=== PATIENT | female | born 1940 | race Caucasian/White ===

== ENCOUNTER 2016-09-25 06:56 | Day surgery (SDC) | payer OTHER ==
[~2016-09-25] VITALS: Ht 162.6 cm; Wt 90.7 kg
[~2016-09-25 06:56] MED LIST: CLARITIN10 MG PO; COUMADIN4 MG PO; EFFEXOR XR75 MG PO
[2016-09-25] MEDS ORDERED: fentaNYL 0.05 MG/ML VIAL ONE (08:47)
[2016-09-25] MEDS ORDERED: LIDOCAINE VISCOUS 2% 20 ML UDC ONE (08:47)
[2016-09-25] MEDS ORDERED: MIDAZOLAM 2 MG/2 ML VIAL ONE (08:48)
[2016-09-25] MEDS ORDERED: HCTZ (09:44)
[2016-09-25] MEDS ORDERED: SYNTHROID0.025 MG PO (09:44)
[2016-09-25] MEDS ORDERED: CHOLESTEROL (09:44)
[2016-09-25] MEDS ORDERED: BP MED (09:44)
[2016-09-25] MEDS ORDERED: INSULIN (09:44)
[2017-03-27] MEDS ORDERED: ASPIRIN81 M1 PO (17:51)
== END 2016-09-25 10:25 | disposition home or self-care (01) ==
LOC: MDS 06:56 → MMU 07:06 → MDS 10:25
PROVIDERS: ATTEND Internal Medicine Gastroenterology
DX: E11.43 Type 2 diabetes mellitus with diabetic autonomic (poly)neuropathy (principal); K31.84 Gastroparesis; E11.22 Type 2 diabetes mellitus with diabetic chronic kidney disease; I12.9 Hypertensive chronic kidney disease with stage 1 through stage 4 chronic kidney disease, or unspecified chronic kidney disease; N18.4 Chronic kidney disease, stage 4 (severe); M19.90 Unspecified osteoarthritis, unspecified site
CPT/HCPCS: 43235; 71010; 82948; J2250; J7030; Q0092

== ENCOUNTER 2016-10-19 13:11 | Outpatient (CLI) | payer OTHER ==
[~2016-10-19 13:11] MED LIST changes: +BP MED; +CHOLESTEROL; +HCTZ; +INSULIN; +SYNTHROID0.025 MG PO
[2017-03-27] MEDS ORDERED: ASPIRIN81 M1 PO (17:51)
== END 2016-10-19 20:02 | disposition home or self-care (01) ==
LOC: MLB 13:11
DX: M19.90 Unspecified osteoarthritis, unspecified site (principal); E11.9 Type 2 diabetes mellitus without complications; I12.9 Hypertensive chronic kidney disease with stage 1 through stage 4 chronic kidney disease, or unspecified chronic kidney disease; N18.2 Chronic kidney disease, stage 2 (mild)

== ENCOUNTER 2016-11-19 15:16 | Emergency (ER) | payer OTHER ==
[~2016-11-19] VITALS: Ht 158.8 cm; Wt 90.9 kg
[~2016-11-19 15:16] MED LIST changes: -CLARITIN10 MG PO; -COUMADIN4 MG PO; -EFFEXOR XR75 MG PO; -HCTZ; +LORA10TA19 PO; +ORE25; +SYN.025 PO; -SYNTHROID0.025 MG PO; +VENL75CE5 PO; +WARF4TAB PO
[2016-11-19 15:19] VITALS: BP 147/71
--- NOTE | 2016-11-19 15:34 | NUR ---
Patient to bed 07.
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
--- NOTE | 2016-11-19 15:38 | NUR ---
Dr. Guevara evaluating patient at bedside.
[2016-11-19] MEDS ORDERED: HYDROcodone/APAP 5/325 MG 1 TAB TAB PO ONE (15:40)
--- NOTE | 2016-11-19 15:46 | NUR ---
Patient going to CT via [facility].
--- NOTE | 2016-11-19 16:08 | NUR ---
Patient back from CT via [facility].
--- NOTE | 2016-11-19 16:09 | NUR ---
LAB at bedside.
[2016-11-19 16:24] LABS: BASOPHILS # (AUTO) 0.1 K/uL (0.00-0.22); BASOPHILS % (AUTO) 1.2 % (0.0-2.0); EOSINOPHILS # (AUTO) 0.2 K/uL (0-0.4); EOSINOPHILS % (AUTO) 2.3 % (0.0-4.0); HEMATOCRIT 40.3 % (36-48); HEMOGLOBIN 13.2 g/dL (12.0-16.0); LYMPHOCYTES # (AUTO) 2.1 K/uL (2.5-16.5); LYMPHOCYTES % (AUTO) 29.2 % (20.5-51.1); MEAN CORPUSCULAR HEMOGLOBIN 29 pg (27-31); MEAN CORPUSCULAR HGB CONC 33 g/dL (33-37); MEAN CORPUSCULAR VOLUME 89 fL (80-94); MONOCYTES # (AUTO) 0.6 K/uL (0.8-1.0); MONOCYTES % (AUTO) 8.1 % (1.7-9.3); NEUTROPHILS # (AUTO) 4.2 K/uL (1.8-7.7); NEUTROPHILS % (AUTO) 59.2 % (42.2-75.2); PLATELET COUNT (AUTO) 198 K/uL (140-450); RED BLOOD CELL COUNT(AUTO) 4.53 MIL/uL (4.20-5.40); WHITE BLOOD COUNT (AUTO) 7.2 K/uL (4.8-10.8)
--- NOTE | 2016-11-19 16:41 | NUR ---
Dr. Guevara at bedside.
[2016-11-19 16:44] LABS: INR 1.2 (0.8-1.2); PARTIAL THROMBOPLASTIN TIME 27.9 secs (22-35.6); PROTHROMBIN TIME 11.3 secs (10.8-13.4)
[2016-11-19 17:08] VITALS: BP 150/66
--- NOTE | 2016-11-19 17:08 | NUR ---
Patient discharged with v/s stable. Written and verbal after care instructions given and explained. Patient alert, oriented and verbalized understanding of instructions. Ambulatory with steady gait. All questions addressed prior to discharge. ID band removed. Patient advised to follow up with PMD. Rx of NORCO 5MG-325MG given. Patient educated on indication of medication including possible reaction and side effects. Opportunity to ask questions provided and answered.
== END 2016-11-19 17:08 | disposition home or self-care (01) ==
LOC: MED 15:16
DX: S20.212A Contusion of left front wall of thorax, initial encounter (principal); S90.32XA Contusion of left foot, initial encounter; S09.90XA Unspecified injury of head, initial encounter; E11.9 Type 2 diabetes mellitus without complications; Z88.0 Allergy status to penicillin; Z98.890 Other specified postprocedural states; V89.0XXA Person injured in unspecified motor-vehicle accident, nontraffic, initial encounter; Y93.89 Activity, other specified; Y92.89 Other specified places as the place of occurrence of the external cause; Y99.8 Other external cause status
CPT/HCPCS: 36415; 70450; 71020; 73610; 73630; 81002; 82948; 85025; 85610; 85730; 99285

== ENCOUNTER 2017-02-10 14:32 | Outpatient (CLI) | payer OTHER ==
[2017-02-10 15:23] LABS: BASOPHILS # (AUTO) 0.2 K/uL (0.00-0.22); EOSINOPHILS # (AUTO) 0.1 K/uL (0-0.4); HEMATOCRIT 39.5 % (36-48); HEMOGLOBIN 12.7 g/dL (12.0-16.0); LYMPHOCYTES # (AUTO) 1.4 K/uL (2.5-16.5); MEAN CORPUSCULAR HEMOGLOBIN 29 pg (27-31); MEAN CORPUSCULAR HGB CONC 32 g/dL (33-37); MEAN CORPUSCULAR VOLUME 90 fL (80-94); MONOCYTES # (AUTO) 0.2 K/uL (0.8-1.0); PLATELET COUNT (AUTO) 195 K/uL (140-450); RED BLOOD CELL COUNT(AUTO) 4.38 MIL/uL (4.20-5.40); RED CELL DISTRIBUTION WIDTH 12.3 % (11.6-13.7); WHITE BLOOD COUNT (AUTO) 4.9 K/uL (4.8-10.8)
[2017-02-10 15:50] LABS: ALANINE AMINOTRANSFERASE 32 U/L (12-78); ALBUMIN 3.7 g/dL (3.4-5.0); ALKALINE PHOSPHATASE 101 U/L (46-116); ANION GAP 12.5 (8-16); ASPARTATE AMINOTRANSFERASE 23 U/L (15-37); CALCIUM 8.8 mg/dL (8.5-10.1); CARBON DIOXIDE 27.2 mmol/L (21-32); CHLORIDE 108 mmol/L (98-107); CHOL/HDL RATIO 3.7 (1-4.5); CHOLESTEROL 172 mg/dL (<200); CREATININE 1.4 mg/dL (0.6-1.3); GLUCOSE 101 mg/dL (74-106); HDL CHOLESTEROL 47 mg/dL (40-60); LDL (CALC) 106 mg/dL (60-100); PHOSPHORUS 3.2 mg/dL (2.5-4.9); POTASSIUM 4.7 mmol/L (3.5-5.1); SODIUM SERUM 143 mmol/L (136-145); TOTAL BILIRUBIN 0.6 mg/dL (0.0-1.0); TOTAL PROTEIN, SERUM 8.1 g/dL (6.4-8.2); TRIGLYCERIDES 97 mg/dL (30-150); UREA NITROGEN, BLOOD 35 mg/dL (7-18)
[2017-02-10 16:31] LABS: APPEARANCE,URINE CLEAR (CLEAR); BILIRUBIN,URINE NEGATIVE (NEGATIVE); BLOOD, URINE NEGATIVE (NEGATIVE); COLOR,URINE YELLOW (YELLOW); LEUKOCYTE ESTERASE ,URINE NEGATIVE (NEGATIVE); NITRITE, URINE NEGATIVE (NEGATIVE); PROTEIN,URINE 1+ (NEGATIVE); UGLUCOSE NEGATIVE (NEGATIVE); UROBILINOGEN,URINE 0.2 EU/dL (0.2 - 1)
[2017-02-10 16:46] LABS: BACTERIA,URINE RARE /HPF (None Seen); RBC,URINE 0-3 /HPF (0-5); SQUAMOUS EPITHELIAL CELL,UR 0-3 /LPF (0-3 (FEW)); WBC,URINE 0-3 /HPF (0-5)
[2017-02-11 06:09] LABS: URINE PROTEIN QUANT RANDOM 50.2 mg/dL (15-45)
== END 2017-02-10 20:43 | disposition home or self-care (01) ==
LOC: MLB 14:32
DX: M19.90 Unspecified osteoarthritis, unspecified site (principal); I12.9 Hypertensive chronic kidney disease with stage 1 through stage 4 chronic kidney disease, or unspecified chronic kidney disease; N18.3 Chronic kidney disease, stage 3 (moderate); E11.9 Type 2 diabetes mellitus without complications
CPT/HCPCS: 36415; 80053; 81001; 82570; 83036; 83970; 84100; 84157; 85025

== ENCOUNTER 2017-03-25 15:09 | Inpatient (IN) | payer OTHER ==
[~2017-03-25] VITALS: Ht 160 cm; Wt 95.3 kg
--- NOTE | 2017-03-25 10:30 | NUR ---
PATIENT ASLEEP IN BED, NO S/S OF ACUTE DISTRESS NOTED, SAFETY MEASURE ENSURED, WILL CONTINUE TO MONITOR Addendum: 03/26/17 at 0504 by Ayanna Lucas RN WRONG TIME, TIME SHOULD BE 0970
[2017-03-25 16:02] VITALS: BP 148/63
[2017-03-25] MEDS ORDERED: ASPIRIN 325 MG TAB PO ONE (16:45)
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
[2017-03-25] MEDS ORDERED: NITROGLYCERIN 0.4 MG TAB SL ONE (17:15)
[2017-03-25 17:16] LABS: BASOPHILS # (AUTO) 0.2 K/uL (0.00-0.22); BASOPHILS % (AUTO) 3.8 % (0.0-2.0); EOSINOPHILS # (AUTO) 0.2 K/uL (0-0.4); HEMATOCRIT 38.4 % (36-48); HEMOGLOBIN 12.5 g/dL (12.0-16.0); LYMPHOCYTES # (AUTO) 1.6 K/uL (2.5-16.5); LYMPHOCYTES % (AUTO) 27.2 % (20.5-51.1); MEAN CORPUSCULAR HEMOGLOBIN 30 pg (27-31); MEAN CORPUSCULAR HGB CONC 33 g/dL (33-37); MEAN CORPUSCULAR VOLUME 92 fL (80-94); MONOCYTES # (AUTO) 0.6 K/uL (0.8-1.0); MONOCYTES % (AUTO) 9.8 % (1.7-9.3); NEUTROPHILS # (AUTO) 3.4 K/uL (1.8-7.7); NEUTROPHILS % (AUTO) 56.2 % (42.2-75.2); PLATELET COUNT (AUTO) 218 K/uL (140-450); RED BLOOD CELL COUNT(AUTO) 4.15 MIL/uL (4.20-5.40); RED CELL DISTRIBUTION WIDTH 12.5 % (11.6-13.7)
--- NOTE | 2017-03-25 17:20 | NUR ---
PT AMBULATES TO THE RESTROOM FOR URINE SAMPLE
[2017-03-25 17:29] LABS: ANION GAP 13.9 (8-16); CALCIUM 8.3 mg/dL (8.5-10.1); CARBON DIOXIDE 26.3 mmol/L (21-32); CHLORIDE 106 mmol/L (98-107); CREATININE 1.5 mg/dL (0.6-1.3); GLUCOSE 110 mg/dL (74-106); POTASSIUM 4.2 mmol/L (3.5-5.1); SODIUM SERUM 142 mmol/L (136-145); UREA NITROGEN, BLOOD 51 mg/dL (7-18)
[2017-03-25 17:38] LABS: ALANINE AMINOTRANSFERASE 32 U/L (14-59); ALBUMIN 3.7 g/dL (3.4-5.0); ALKALINE PHOSPHATASE 90 U/L (46-116); ASPARTATE AMINOTRANSFERASE 19 U/L (15-37); TOTAL BILIRUBIN 0.3 mg/dL (0.0-1.0); TOTAL PROTEIN, SERUM 7.9 g/dL (6.4-8.2)
[2017-03-25 17:42] LABS: INR 1.1 (0.8-1.2); PARTIAL THROMBOPLASTIN TIME 25.7 secs (22-35.6); PROTHROMBIN TIME 10.8 secs (10.8-13.4)
[2017-03-25 17:45] LABS: APPEARANCE,URINE CLEAR (CLEAR); BILIRUBIN,URINE NEGATIVE (NEGATIVE); BLOOD, URINE NEGATIVE (NEGATIVE); COLOR,URINE YELLOW (YELLOW); LEUKOCYTE ESTERASE ,URINE NEGATIVE (NEGATIVE); NITRITE, URINE NEGATIVE (NEGATIVE); PROTEIN,URINE 1+ (NEGATIVE); UGLUCOSE NEGATIVE (NEGATIVE); UROBILINOGEN,URINE 0.2 EU/dL (0.2 - 1)
[2017-03-25 17:52] LABS: BACTERIA,URINE 1-9 (FEW) /HPF (None Seen); SQUAMOUS EPITHELIAL CELL,UR 4-10 (MOD) /LPF (0-3 (FEW))
[2017-03-25] MEDS ORDERED: NACL 0.9% 1,000 ML IV SCH (18:19)
[2017-03-25] MEDS ORDERED: ONDANSETRON 4 MG/2 ML VIAL IM/IVP PRN (18:20)
[2017-03-25] MEDS ORDERED: ACETAMINOPHEN 325 MG TAB PO PRN (18:20)
[2017-03-25] MEDS ORDERED: DOCUSATE SODIUM 100 MG GELCAP PO PRN (18:20)
[2017-03-25] MEDS ORDERED: ONDANSETRON 4 MG/2 ML VIAL IVP PRN (18:20)
[2017-03-25] MEDS ORDERED: MORPHINE SULFATE 2 MG/ML SYR IVP PRN ×2 (18:20)
[2017-03-25] MEDS ORDERED: HYDROmorphone 1 MG/ML AMP IVP PRN (18:20)
[2017-03-25] MEDS ORDERED: HYDROcodone/APAP 7.5/325 MG 1 TAB PO PRN (18:20)
--- NOTE | 2017-03-25 18:45 | NUR ---
Patient will be admitted to care of DR LLANES. Admited to TELE. Will go to room 124A. Belongings list completed. Report to AZAEL ALMARAZ.
--- NOTE | 2017-03-25 18:45 | NUR ---
REC'D REPORT FROM THE ER NURSE. WILL GET ROOM READY AND AWAIT PT'S ARRIVAL.
--- NOTE | 2017-03-25 19:00 | NUR ---
ENDORSED PT TO THE PRECISION MACHINIST NURSE. PT NOT HERE YET.
--- NOTE | 2017-03-25 19:05 | NUR ---
PT ARRIVED ON UNIT. GOT HER SITUATED.
--- NOTE | 2017-03-25 19:05 | NUR ---
ADMITTED A 77 YEARS OLD FEMALE TO THE TELE UNIT. PATIENT AWAKE ALERT ORIENTED X4. NO S/S OF ACUTE DISTRESS NOTED, RESPIRATION EVEN AND UNLABORED, DENIES PAIN AT THIS TIME. TELE MONITOR WAS IN PLACE. IV PATENT AND INTACT, FLUSHED WITH NS, AND WILL START NS FLUIDS ORDERED. PLAN OF CARE DISCUSSED, PATIENT VERBALIZED UNDERSTANDING. SCD PLACED ON BILATERAL LOWER EXTREMITIES. PER DAY SHIFT RN, PATIENT'S FAMILY MEMBER WOULD BRING PATIENT'S HOME MEDICATIONS LATER TONIGHT, SO WILL INFORM ATTENDING DR ONCE MEDICATIONS ARE RECEIVED. CALL LIGHT WITHIN REACH, SAFETY MEASURE ENSURED, WILL CONTINUE TO MONITOR.
[2017-03-25 19:30] VITALS: BP 148/65
[2017-03-25 19:37] LABS: CHOL/HDL RATIO 3.3 (1-4.5); CREATINE KINASE MB 1.2 ng/mL (0-3.6); FREE T4 (FREE THYROXINE) 1.03 ng/dL (0.76-1.46); THYROID STIMULATING HORMONE 1.07 uIU/mL (0.34-3.74)
[2017-03-25] MEDS ORDERED: DEXTROSE 50% 50 ML SYR IVP PRN (21:55)
[2017-03-25] MEDS ORDERED: WARFARIN 2 MG TAB PO SCH (23:15)
[2017-03-25] MEDS ORDERED: METOPROLOL SUCCINATE 50 MG TABER PO SCH (23:45)
[2017-03-26] VITALS: BP 144/65
[2017-03-26] MEDS ORDERED: ECOTRIN 81 MG TABEC PO SCH
--- NOTE | 2017-03-26 01:56 | NUR ---
PATIENT STATED SHE TOOK ASPIRIN IN THE ER. MADE DR. GRANADOS AND DR. PUGA AWARE. METOPROLOL 12.5 MG NOT AVAILABLE. ASPIRIN 81MG AND METOPROLOL 12.5MG NOT ADMINISTERED.
--- NOTE | 2017-03-26 03:31 | NUR ---
TALKED WITH PHARMACIST MICHAEL, PER PHARMACIST COUMADIN 8MG NOT GIVEN DURING THE NIGHT, NO DOSE DUE AT THIS TIME.
[2017-03-26 04:00] VITALS: BP 141/65
--- NOTE | 2017-03-26 05:04 | NUR ---
ASSISTED PATIENT TO THE BATHROOM, PATIENT VOID X1. PATIENT RESTING IN BED NOW, NO S/S OF ACUTE DISTRESS NOTED, WILL CONTINUE TO MONITOR.
[2017-03-26 05:58] LABS: BASOPHILS # (AUTO) 0.3 K/uL (0.00-0.22); BASOPHILS % (AUTO) 4.7 % (0.0-2.0); EOSINOPHILS # (AUTO) 0.1 K/uL (0-0.4); EOSINOPHILS % (AUTO) 2.8 % (0.0-4.0); HEMATOCRIT 37.6 % (36-48); HEMOGLOBIN 12.4 g/dL (12.0-16.0); LYMPHOCYTES # (AUTO) 1.7 K/uL (2.5-16.5); MEAN CORPUSCULAR HEMOGLOBIN 31 pg (27-31); MEAN CORPUSCULAR HGB CONC 33 g/dL (33-37); MEAN CORPUSCULAR VOLUME 93 fL (80-94); MONOCYTES # (AUTO) 0.6 K/uL (0.8-1.0); MONOCYTES % (AUTO) 10.3 % (1.7-9.3); NEUTROPHILS # (AUTO) 2.6 K/uL (1.8-7.7); NEUTROPHILS % (AUTO) 51.2 % (42.2-75.2); PLATELET COUNT (AUTO) 219 K/uL (140-450); RED BLOOD CELL COUNT(AUTO) 4.04 MIL/uL (4.20-5.40); RED CELL DISTRIBUTION WIDTH 12.5 % (11.6-13.7); WHITE BLOOD COUNT (AUTO) 5.3 K/uL (4.8-10.8)
[2017-03-26 06:10] LABS: PHOSPHORUS 3.4 mg/dL (2.5-4.9)
[2017-03-26 06:15] LABS: ANION GAP 12.2 (8-16); CALCIUM 8.2 mg/dL (8.5-10.1); CARBON DIOXIDE 26.1 mmol/L (21-32); CHLORIDE 110 mmol/L (98-107); CREATININE 1.3 mg/dL (0.6-1.3); GLUCOSE 122 mg/dL (74-106); POTASSIUM 4.3 mmol/L (3.5-5.1); SODIUM SERUM 144 mmol/L (136-145); UREA NITROGEN, BLOOD 41 mg/dL (7-18)
--- NOTE | 2017-03-26 06:24 | NUR ---
PATIENT HAS BEEN SCREENED AND CATEGORIZED MODERATE NUTRITION RISK. PATIENT WILL BE SEEN WITHIN 3-5 DAYS OF ADMISSION. 03/28/17-03/30/[address]
[2017-03-26] MEDS: BLOOD GLUCOSE MONITORING 1 DEV DEV FS SCH ×4 (06:34→21:04)
[2017-03-26] MEDS: glipiZIDE 5 MG TAB PO SCH (06:40)
[2017-03-26] MEDS: LEVOTHYROXINE 0.025 MG TAB PO SCH (06:41)
--- NOTE | 2017-03-26 06:50 | NUR ---
PATIENT REFUSED US VENOUS BILATERAL LOWER EXTREMITIES AND US ARTERIAL BILATERAL LOWER EXTREMITIES. EDUCATED THE INDICATION AND IMPORTANCE OF THE PROCEDURES, PATIENT VERBALIZED UNDERSTANDING, STILL REFUSED.
--- NOTE | 2017-03-26 07:40 | NUR ---
ENDORSED PLAN OF CARE TO DAY RN. PATIENT IS IN STABLE CONDITION
--- NOTE | 2017-03-26 07:41 | NUR ---
RECEIVED REPORT FROM NIGHT RN. PT RESTING IN BED. AAOX4. NO S/S OF ACUTE DISTRESS. PT DENIES PAIN. IV SITE PATENT AND INTACT. TELE BOX IN PLACE. PLAN OF CARE DISCUSSED WITH PT. CALL LIGHT WITHIN REACH. SAFETY MEASURES ENSURED. WILL CONTINUE TO MONITOR.
[2017-03-26] MEDS: PANTOPRAZOLE 40 MG TABEC PO SCH (07:46)
[2017-03-26 08:00] VITALS: BP 134/63
[2017-03-26 08:18] LABS: T4 (THYROXINE) 8.6 ug/dL (4.5-12.0)
[2017-03-26] MEDS: METOPROLOL SUCCINATE 50 MG TABER PO SCH (09:00)
[2017-03-26] MEDS ORDERED: LISINOPRIL 10 MG TAB PO SCH (09:00)
[2017-03-26] MEDS ORDERED: VENLAFAXINE XR 75 MG CAPER PO SCH (09:00)
[2017-03-26] MEDS ORDERED: WARFARIN 2 MG TAB PO SCH ×3 (09:00→20:00)
[2017-03-26] MEDS: FLUTICASONE NASAL 50 MCG/ACTUATION 16 GM BTL NS SCH ×2 (09:13→21:05)
--- NOTE | 2017-03-26 09:13 | NUR ---
AM MEDICATION GIVEN WITH EDUCATION. PT VERBALIZED UNDERSTANDING. PT TOLERATED WELL. WILL CONTINUE TO MONITOR.
[2017-03-26] MEDS: ALLOPURINOL 100 MG TAB PO SCH (09:14)
[2017-03-26] MEDS: LORATADINE 10 MG TAB PO SCH (09:14)
[2017-03-26] MEDS: LISINOPRIL 10 MG TAB PO SCH (09:15)
[2017-03-26] MEDS: ATORVASTATIN 20 MG TAB PO SCH (09:15)
[2017-03-26] MEDS: HYDROCHLOROTHIAZIDE 25 MG TAB PO SCH (09:16)
[2017-03-26] MEDS: VENLAFAXINE XR 75 MG CAPER PO SCH (09:25)
[2017-03-26] MEDS: NACL 0.9% 1,000 ML IV SCH ×2 (09:50→17:15)
[2017-03-26] MEDS ORDERED: HYDROcodone/APAP 7.5/325 MG 1 TAB PO PRN (09:50)
[2017-03-26] MEDS ORDERED: ACETAMINOPHEN 325 MG TAB PO PRN (09:50)
[2017-03-26] MEDS ORDERED: ONDANSETRON 4 MG/2 ML VIAL IVP PRN (09:50)
[2017-03-26] MEDS ORDERED: HYDROmorphone 1 MG/ML AMP IVP PRN (09:50)
[2017-03-26] MEDS ORDERED: DOCUSATE SODIUM 100 MG GELCAP PO PRN (09:50)
[2017-03-26] MEDS ORDERED: MORPHINE SULFATE 2 MG/ML SYR IVP PRN (09:50)
--- NOTE | 2017-03-26 12:10 | NUR ---
PT LAYING IN BED. NO S/S OF ACUTE DISTRESS. PT DENIES PAIN. CALL LIGHT WITHIN REACH. SAFETY MEASURES ENSURED. WILL CONTINUE TO MONITOR.
[2017-03-26 13:22] VITALS: BP 144/62
--- NOTE | 2017-03-26 14:12 | NUR ---
PT RESTING IN BED. AAOX4. NO S/S OF ACUTE DISTRESS. PT DENIES PAIN. CALL LIGHT WITHIN REACH. SAFETY MEASURES ENSURED. WILL CONTINUE TO MONITOR.
[2017-03-26 16:00] VITALS: BP 151/76
[2017-03-26] MEDS ORDERED: HEPARIN PER PHARMACY MC PRN (16:40)
[2017-03-26] MEDS ORDERED: hePARIN / DEXT 5% PREMIX 250 ML IV SCH (18:00)
[2017-03-26] MEDS: WARFARIN 2 MG TAB PO SCH (18:09)
--- NOTE | 2017-03-26 19:19 | NUR ---
ENDORSED PLAN OF CARE TO NIGHT RN. PT REMAINS STABLE.
--- NOTE | 2017-03-26 19:20 | NUR ---
RECEIVED REPORT FROM DAY RN FOR CONTINUITY OF CARE. PATIENT IS A&OX4, DISCUSSED PLAN OF CARE WITH PATIENT, VERBALIZED UNDERSTANDING. SHIFT ASSESSMENT DONE, VITAL SIGNS STABLE AT THIS TIME. NO S/S OF RESPIRATORY DISTRESS NOTED ON ROOM AIR. PATIENT DENIES PAIN. IV TO LT AC PATENT AND INFUSING FLUIDS WELL, LT WRIST IV FLUSHED. SAFETY PRECAUTIONS ENFORCED, CALL LIGHT WITHIN REACH. WILL CONTINUE TO MONITOR.
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
[2017-03-26 20:00] VITALS: BP 138/76
--- NOTE | 2017-03-26 20:45 | NUR ---
SPOKE TO RESIDENTS REGARDING COUMADIN AND HEPARIN ORDER, PER OK TO GIVE HEPARIN ONE TIME DOSE. WILL FOLLOW OUR ORDERS GIVEN.
--- NOTE | 2017-03-26 21:04 | NUR ---
DUE MEDICATIONS ADMINISTERED, TOLERATED WELL AND VERBALIZED UNDERSTANDING OF USE. CALL LIGHT WITHIN REACH, WILL CONTINUE TO MONITOR.
--- NOTE | 2017-03-26 22:00 | NUR ---
PATIENT AMBULATING IN HALLWAY, NO S/S OF DISTRESS OR DISCOMFORT NOTED. WILL CONTINUE TO MONITOR.
[2017-03-27] VITALS: BP 127/59
--- NOTE | 2017-03-27 00:10 | NUR ---
VITAL SIGNS STABLE, PATIENT SLEEPING AT THIS TIME, NO S/S OF DISTRESS OR DISCOMFORT NOTED. WILL CONTINUE TO MONITOR.
[2017-03-27] MEDS: NACL 0.9% 1,000 ML IV SCH ×3 (00:45→15:30)
--- NOTE | 2017-03-27 02:20 | NUR ---
PATIENT SLEEPING AT THIS TIME, NO S/S OF DISTRESS OR DISCOMFORT NOTED. CALL LIGHT WITHIN REACH.
[2017-03-27 04:00] VITALS: BP 150/77
--- NOTE | 2017-03-27 04:15 | NUR ---
VITAL SIGNS STABLE, ALL NEEDS MET AT THIS TIME. PATIENT RESTING IN BED. CALL LIGHT WITHIN REACH
[2017-03-27] MEDS: BLOOD GLUCOSE MONITORING 1 DEV DEV FS SCH ×3 (05:53→16:37)
--- NOTE | 2017-03-27 05:55 | NUR ---
BLOOD SUGAR TAKEN, 132. PATIENT RESTING IN BED NO S/S OF DISTRESS OR DISCOMFORT NOTED. CALL LIGHT WITHIN REACH.
[2017-03-27] MEDS: glipiZIDE 5 MG TAB PO SCH (06:53)
[2017-03-27] MEDS: LEVOTHYROXINE 0.025 MG TAB PO SCH (06:53)
[2017-03-27] MEDS: PANTOPRAZOLE 40 MG TABEC PO SCH (06:53)
--- NOTE | 2017-03-27 07:20 | NUR ---
ENDORSED PATIENT TO DAY RN FOR CONTINUITY OF CARE, PATIENT IS IN STABLE CONDITION.
--- NOTE | 2017-03-27 07:20 | NUR ---
RECEIVED PATIENT REPORT AT BEDSIDE. PATIENT AWAKE, ALERT AND ORIENTED. NO S/S OF DISTRESS NOTED. PATIENT ON ROOM AIR. PATIENT DENIES PAIN. IV LINE NOTED TO THE LEFT AC AND LEFT WRIST SL. PATIENT REFUSED TO BE ON IVF. PATIENT ON TELE MONITORING. BED LOWERED WITH CALL LIGHT WITHIN REACH. WILL CONTINUE TO MONITOR
[2017-03-27 07:34] LABS: INR 1.1 (0.8-1.2); PROTHROMBIN TIME 10.7 secs (10.8-13.4)
[2017-03-27 07:49] VITALS: BP 138/74
[2017-03-27] MEDS: ATORVASTATIN 20 MG TAB PO SCH (08:18)
[2017-03-27] MEDS: LISINOPRIL 10 MG TAB PO SCH (08:19)
[2017-03-27] MEDS: VENLAFAXINE XR 75 MG CAPER PO SCH (08:19)
[2017-03-27] MEDS: METOPROLOL SUCCINATE 50 MG TABER PO SCH (08:19)
[2017-03-27] MEDS: ALLOPURINOL 100 MG TAB PO SCH (08:20)
[2017-03-27] MEDS: HYDROCHLOROTHIAZIDE 25 MG TAB PO SCH (08:20)
[2017-03-27] MEDS: FLUTICASONE NASAL 50 MCG/ACTUATION 16 GM BTL NS SCH (08:21)
[2017-03-27] MEDS: LORATADINE 10 MG TAB PO SCH (08:21)
[2017-03-27] MEDS ORDERED: HEPARIN PER PHARMACY MC PRN (08:35)
[2017-03-27] MEDS ORDERED: hePARIN / DEXT 5% PREMIX 250 ML IV SCH (08:35)
[2017-03-27] MEDS ORDERED: CALCIUM CARB/VIT-D 500 MG/200 IU 1 TAB PO SCH (09:00)
[2017-03-27 12:00] VITALS: BP 139/75
--- NOTE | 2017-03-27 15:10 | NUR ---
PATIENT ASLEEP IN BED. NO S/S OF DISTRESS NOTED. WILL CONTINUE TO MONITOR
[2017-03-27 16:00] VITALS: BP 146/80
[2017-03-27] MEDS: WARFARIN 2 MG TAB PO SCH (16:34)
[2017-03-27] MEDS ORDERED: ASPI81CT89 PO (17:51)
--- NOTE | 2017-03-27 18:10 | NUR ---
DISCHARGE INSTRUCTIONS GIVEN TO THE PATIENT. PATIENT VERBALIZED UNDERSTANDING. PATIENT SIGNED ALL HER DISCHARGE PAPERS. IV LINE DISCONTINUED. TELE LEADS TAKEN OFF. PATIENT WAITING FOR HER RIDE HOME
--- NOTE | 2017-03-27 19:15 | NUR ---
PATIENT DISCHARGED TO HOME. PATIENT PICKED UP BY HER GRANDSON. PATIENT LEFT WITH ALL HER BELONGINGS AND DISCHARGE PAPERS. PATIENT LEFT IN STABLE CONDITION
== END 2017-03-27 19:19 | disposition home or self-care (01) | DRG 391 ==
LOC: MED 15:09 → MTU 18:19
PROVIDERS: ADMIT Student in an Organized Health Care Education/Training Program; ATTEND Student in an Organized Health Care Education/Training Program
DX: K21.9 Gastro-esophageal reflux disease without esophagitis (principal); N17.0 Acute kidney failure with tubular necrosis; D68.59 Other primary thrombophilia; E11.65 Type 2 diabetes mellitus with hyperglycemia; F32.9 Major depressive disorder, single episode, unspecified; E03.9 Hypothyroidism, unspecified; J45.909 Unspecified asthma, uncomplicated; I34.0 Nonrheumatic mitral (valve) insufficiency; E83.51 Hypocalcemia; I25.10 Atherosclerotic heart disease of native coronary artery without angina pectoris; I11.9 Hypertensive heart disease without heart failure; E66.8 Other obesity; Z68.37 Body mass index [BMI] 37.0-37.9, adult; Z79.01 Long term (current) use of anticoagulants; Z86.711 Personal history of pulmonary embolism; Z86.718 Personal history of other venous thrombosis and embolism; Z79.4 Long term (current) use of insulin; Z79.899 Other long term (current) drug therapy; Z90.49 Acquired absence of other specified parts of digestive tract
CPT/HCPCS: 36415; 71010; 80048; 80053; 81001; 82150; 82550; 82553; 82948; 83036; 83690; 83735; 83880; 84100; 84436; 84439; 84443; 84484; 85025; 85379; 85610; 85730; 87081; 93005; 99285; J1644; J7030; Q0092

== ENCOUNTER 2017-06-01 12:21 | Outpatient (CLI) | payer OTHER ==
[2017-06-01 12:51] LABS: BASOPHILS # (AUTO) 0.1 K/uL (0.00-0.22); BASOPHILS % (AUTO) 2.6 % (0.0-2.0); EOSINOPHILS # (AUTO) 0.1 K/uL (0-0.4); EOSINOPHILS % (AUTO) 2.9 % (0.0-4.0); HEMATOCRIT 39.5 % (36-48); HEMOGLOBIN 12.9 g/dL (12.0-16.0); LYMPHOCYTES # (AUTO) 1.8 K/uL (2.5-16.5); LYMPHOCYTES % (AUTO) 33.9 % (20.5-51.1); MEAN CORPUSCULAR HEMOGLOBIN 30 pg (27-31); MEAN CORPUSCULAR HGB CONC 33 g/dL (33-37); MEAN CORPUSCULAR VOLUME 92 fL (80-94); MONOCYTES # (AUTO) 0.4 K/uL (0.8-1.0); MONOCYTES % (AUTO) 7.6 % (1.7-9.3); NEUTROPHILS # (AUTO) 2.8 K/uL (1.8-7.7); PLATELET COUNT (AUTO) 203 K/uL (140-450); RED CELL DISTRIBUTION WIDTH 12.2 % (11.6-13.7); WHITE BLOOD COUNT (AUTO) 5.2 K/uL (4.8-10.8)
[2017-06-01 13:19] LABS: ALBUMIN 3.8 g/dL (3.4-5.0); ANION GAP 13.3 (8-16); ASPARTATE AMINOTRANSFERASE 17 U/L (15-37); CARBON DIOXIDE 26.3 mmol/L (21-32); CHLORIDE 107 mmol/L (98-107); CREATININE 1.5 mg/dL (0.6-1.3); GLUCOSE 94 mg/dL (74-106); POTASSIUM 4.6 mmol/L (3.5-5.1); SODIUM SERUM 142 mmol/L (136-145); TOTAL BILIRUBIN 0.5 mg/dL (0.0-1.0); UREA NITROGEN, BLOOD 43 mg/dL (7-18)
[2017-06-01 13:36] LABS: APPEARANCE,URINE CLEAR (CLEAR); BILIRUBIN,URINE NEGATIVE (NEGATIVE); BLOOD, URINE NEGATIVE (NEGATIVE); COLOR,URINE YELLOW (YELLOW); LEUKOCYTE ESTERASE ,URINE NEGATIVE (NEGATIVE); NITRITE, URINE NEGATIVE (NEGATIVE); UGLUCOSE NEGATIVE (NEGATIVE)
[2017-06-01 13:47] LABS: RBC,URINE 0-5 (RARE) /HPF (0-5)
[2017-06-01 14:04] LABS: PROTHROMBIN TIME 12.8 secs (10.8-13.4)
[2017-06-01 14:13] LABS: FREE T4 (FREE THYROXINE) 1.08 ng/dL (0.76-1.46); THYROID STIMULATING HORMONE 1.07 uIU/mL (0.34-3.74)
[2017-06-01 14:21] LABS: CHOL/HDL RATIO 3.8 (1-4.5)
[2017-06-01 21:41] LABS: CREATININE,URINE RANDOM 114 mg/dL (30-125)
[2017-06-02 09:10] LABS: T4 (THYROXINE) 9.2 ug/dL (4.5-12.0)
[2017-06-02 12:25] LABS: MICROALBUMIN, UR RANDOM 327.4 ug/mL (Not Estab.)
== END 2017-06-01 20:18 | disposition home or self-care (01) ==
LOC: MLB 12:21
PROVIDERS: ATTEND Internal Medicine Nephrology
DX: I12.9 Hypertensive chronic kidney disease with stage 1 through stage 4 chronic kidney disease, or unspecified chronic kidney disease (principal); E11.22 Type 2 diabetes mellitus with diabetic chronic kidney disease; N18.3 Chronic kidney disease, stage 3 (moderate); M19.90 Unspecified osteoarthritis, unspecified site
CPT/HCPCS: 36415; 80053; 81001; 82043; 82570; 83036; 84157; 84436; 84439; 84443; 85025; 85610; 85730; 87086

== ENCOUNTER 2017-08-16 10:53 | Inpatient (IN) | payer OTHER ==
[~2017-08-16] VITALS: Ht 165.1 cm; Wt 95.7 kg
[~2017-08-16 10:53] MED LIST changes: +ASPI81CT89 PO
[2017-08-16 11:05] VITALS: BP 153/58
--- NOTE | 2017-08-16 11:11 | NUR ---
PATIENT TO BED 2 AT THIS TIME.
--- NOTE | 2017-08-16 11:15 | NUR ---
77/F BIB DAUGHTER HERE FOR SOB, MCNEAL, dizziness, generalized weakness, sore throat, upper back pain x1WK. HX DM, HTN, CKD, THYROID DS, LEFT DVT 4YRS AGO ON COUMADIN, PE. DENIES FEVER, CONGESTION, N/V/D OR CP.
--- NOTE | 2017-08-16 11:18 | NUR ---
DR. RESENDEZ AT BEDSIDE.
--- NOTE | 2017-08-16 11:33 | NUR ---
RT AT BEDSIDE.
--- NOTE | 2017-08-16 11:36 | NUR ---
XRAY AT BEDSIDE.
[2017-08-16] MEDS ORDERED: NIFE10SG6 PO (12:02)
[2017-08-16] MEDS ORDERED: FURO-572 PO (12:02)
[2017-08-16] MEDS ORDERED: HYDR12.543 PO (12:03)
[2017-08-16] MEDS ORDERED: CEPH250C16 PO (12:03)
[2017-08-16] MEDS ORDERED: ADA60 PO (12:03)
[2017-08-16] MEDS ORDERED: ACET-8386 PO (12:03)
[2017-08-16 12:13] LABS: BASOPHILS # (AUTO) 0.1 K/uL (0.00-0.22); BASOPHILS % (AUTO) 1.2 % (0.0-2.0); EOSINOPHILS # (AUTO) 0.1 K/uL (0-0.4); EOSINOPHILS % (AUTO) 1.7 % (0.0-4.0); HEMATOCRIT 34.1 % (36-48); HEMOGLOBIN 11.1 g/dL (12.0-16.0); LYMPHOCYTES # (AUTO) 1.3 K/uL (2.5-16.5); LYMPHOCYTES % (AUTO) 17.9 % (20.5-51.1); MEAN CORPUSCULAR HEMOGLOBIN 29 pg (27-31); MEAN CORPUSCULAR HGB CONC 33 g/dL (33-37); MEAN CORPUSCULAR VOLUME 90 fL (80-94); MONOCYTES # (AUTO) 0.6 K/uL (0.8-1.0); MONOCYTES % (AUTO) 7.6 % (1.7-9.3); NEUTROPHILS # (AUTO) 5.4 K/uL (1.8-7.7); NEUTROPHILS % (AUTO) 71.6 % (42.2-75.2); PLATELET COUNT (AUTO) 240 K/uL (140-450); RED CELL DISTRIBUTION WIDTH 12.3 % (11.6-13.7); WHITE BLOOD COUNT (AUTO) 7.5 K/uL (4.8-10.8)
[2017-08-16 12:15] LABS: BILIRUBIN,URINE NEGATIVE (NEGATIVE); BLOOD, URINE NEGATIVE (NEGATIVE); COLOR,URINE YELLOW (YELLOW); LEUKOCYTE ESTERASE ,URINE NEGATIVE (NEGATIVE); NITRITE, URINE NEGATIVE (NEGATIVE); UGLUCOSE NEGATIVE (NEGATIVE)
[2017-08-16 12:31] LABS: APPEARANCE,URINE HAZY (CLEAR)
[2017-08-16 12:34] LABS: ANION GAP 12.2 (8-16); CARBON DIOXIDE 26.3 mmol/L (21-32); CHLORIDE 100 mmol/L (98-107); CREATININE 1.8 mg/dL (0.6-1.3); GLUCOSE 147 mg/dL (74-106); POTASSIUM 4.5 mmol/L (3.5-5.1); SODIUM SERUM 134 mmol/L (136-145); UREA NITROGEN, BLOOD 26 mg/dL (7-18)
[2017-08-16 12:39] LABS: PROTHROMBIN TIME 15.9 secs (10.8-13.4)
[2017-08-16 12:40] LABS: ALBUMIN 2.9 g/dL (3.4-5.0); ASPARTATE AMINOTRANSFERASE 17 U/L (15-37); TOTAL BILIRUBIN 0.5 mg/dL (0.0-1.0)
[2017-08-16] MEDS ORDERED: NITROGLYCERIN 2% 1 GM PKT TP ONE (13:05)
--- NOTE | 2017-08-16 13:27 | NUR ---
PT AMB TO RESTROOM.
[2017-08-16] MEDS ORDERED: ONDANSETRON 4 MG/2 ML VIAL IVP PRN (13:30)
[2017-08-16] MEDS ORDERED: HYDROcodone/APAP 7.5/325 MG 1 TAB PO PRN (13:30)
[2017-08-16] MEDS ORDERED: ACETAMINOPHEN 325 MG TAB PO PRN (13:30)
[2017-08-16] MEDS ORDERED: ALBUTEROL SULFATE/IPRATROPIU 3 ML SOL IH PRN (13:30)
[2017-08-16] MEDS ORDERED: DEXTROSE 50% 50 ML SYR IVP PRN (13:40)
--- NOTE | 2017-08-16 13:43 | NUR ---
PT TO CT VIA JEM ACCOMPANIED BY CAN OPERATOR
--- NOTE | 2017-08-16 14:40 | NUR ---
Patient will be admitted to care of DR. BARNETT. Admited to TELE. Will go to room 121-B. Belongings list completed. Report to AZAEL JUAREZ.
[2017-08-16 14:47] LABS: CHOL/HDL RATIO 3.8 (1-4.5); FREE T4 (FREE THYROXINE) 1.57 ng/dL (0.76-1.46); MAGNESIUM 1.3 mg/dL (1.8-2.4); PHOSPHORUS 2.7 mg/dL (2.5-4.9); THYROID STIMULATING HORMONE 1.15 uIU/mL (0.34-3.74)
[2017-08-16 15:00] VITALS: BP 133/74
--- NOTE | 2017-08-16 15:00 | NUR ---
PATIENT ARRIVED ON MST UNIT VIA BED/GURNEY. PATIENT ABLE TO AMBULATE WITH STEADY GAIT FROM ER BED TO MST BED. PATIENT IN STABLE CONDITION. NO DISTRESS NOTED. PLACED PATIENT ON O2 3L/MIN VIA NC, WITH O2 SAT AT 94%. DENIES ANY PAIN AT THIS TIME. COMPLAINTS OF MILD DYSPNEA. AAOX4, CALM, COOPERATIVE, SKIN COLOR APPROPRIATE TO ETHNICITY, WARM TO TOUCH. LUNGS HAS CRACKLING SOUNDS ON B/L LOWER LOBES. ABDOMEN SOFT, OBESE. SKIN IS INTACT, NO WOUNDS THROUGHOUT BODY NOTED. IV SITE IS INTACT PATENT, AND INFUSING IVF PER ORDERS. MRSA SWAB TAKEN PER PROTOCOL. SAFETY MEASURES IN PLACE, CALL LIGHT WITHIN REACH. WILL CONTINUE TO MONITOR.
[2017-08-16 16:00] VITALS: BP 127/70
[2017-08-16] MEDS: NACL 0.9% 1,000 ML IV SCH (16:47)
[2017-08-16] MEDS: BLOOD GLUCOSE MONITORING 1 DEV DEV FS SCH ×2 (16:48→21:18)
[2017-08-16] MEDS ORDERED: MAG SULF 2000 MG/WATER PREMIX 50 ML IV SCH (17:00)
[2017-08-16] MEDS ORDERED: WARFARIN 1 MG TAB PO SCH ×2 (17:00)
--- NOTE | 2017-08-16 17:30 | NUR ---
PATIENT LYING IN BED SLEEPING, AROUSABLE BY VOICE. NO DISTRESS NOTED. CONDITION UNCHANGED. DENIES ANY PAIN AT THIS TIME. SCHEDULED MEDICATIONS DUE GIVEN. SAFETY MEASURES IN PLACE, CALL LIGHT WITHIN REACH. WILL CONTINUE TO MONITOR.
[2017-08-16] MEDS: WARFARIN 5 MG, WARFARIN 3 MG PO SCH ×2 (17:54)
[2017-08-16] MEDS: FUROSEMIDE 40 MG/4 ML VIAL IVP SCH (17:55)
[2017-08-16] MEDS: VENLAFAXINE 37.5 MG TAB PO SCH (17:56)
[2017-08-16] MEDS ORDERED: LACTOBACILLUS RHAMNOSUS GG 1 EACH CAP PO SCH (18:00)
--- NOTE | 2017-08-16 18:25 | NUR ---
PATIENT SITTING IN BED WITH DINNER TRAY IN FRONT. ABLE TO GO AMBULATE TO BATHROOM AND BACK WITH STEADY GAIT. NO DISTRESS NOTED. CONDITION UNCHANGED. WILL CONTINUE TO MONITOR.
--- NOTE | 2017-08-16 19:27 | NUR ---
GAVE REPORT TO WEB PRODUCTION ASSISTANT NURSE FOR CONTINUITY OF CARE. PATIENT IN STABLE CONDITION.
--- NOTE | 2017-08-16 19:29 | NUR ---
RECEIVED REPORT FROM DAY SHIFT NURSE. AAOX4. PT LYING IN BED TALKING TO HER DAUGHTER AT BEDSIDE. ON 02 AT 2L/MIN VIA NC. NO DISTRESS NOTED. IV TO LEFT AC #20G WITH NS AT 100 ML/HR. DISCUSSED PLAN OF CARE, PT AND DAUGHTER VERBALIZED UNDERSTANDING. SAFETY PRECAUTION IN PLACE. CALL LIGHT WITHIN REACH.
[2017-08-16] MEDS: AMPICILLIN/SULBACTAM 1.5 GM in NACL 0.9% 50 ML IV SCH (19:39)
[2017-08-16] MEDS: ALBUTEROL SULFATE/IPRATROPIU 3 ML SOL IH SCH (19:40)
[2017-08-16 20:00] VITALS: BP 116/61
--- NOTE | 2017-08-16 20:30 | NUR ---
ASSISTED PT TO GO TO THE BATHROOM. NO DISTRESS NOTED. CALL LIGHT WITHIN REACH.
[2017-08-16] MEDS: DOCUSATE SODIUM 100 MG GELCAP PO SCH (21:27)
[2017-08-16] MEDS ORDERED: MECLIZINE 25 MG TAB PO PRN (22:15)
--- NOTE | 2017-08-16 22:15 | NUR ---
PT SLEEPING. NO S/S OF DISTRESS. CALL LIGHT WITHIN REACH.
--- NOTE | 2017-08-16 22:45 | NUR ---
PT REFUSED ORTHOSTATIC V/S STATED SHE IS SLEEPY. NO C/O PAIN OR DISCOMFORT. CALL LIGHT WITHIN REACH.
[2017-08-17] VITALS (9 sets, daily range): BP systolic 131–145; BP diastolic 62–79
--- NOTE | 2017-08-17 00:05 | NUR ---
ASSISTED PT TO THE BATHROOM. NO C/O PAIN OR SOB. CALL LIGHT WITHIN REACH.
[2017-08-17] MEDS: NACL 0.9% 1,000 ML IV SCH ×3 (01:01→21:17)
--- NOTE | 2017-08-17 03:20 | NUR ---
PT SLEEPING BUT WAKES EASILY. NO S/S OF DISTRESS. BREATHING EVEN AND UNLABORED. BED IN LOWEST POSITION, SIDE RAILS UP AND CALL LIGHT WITHIN REACH.
--- NOTE | 2017-08-17 04:00 | NUR ---
SCD'S APPLIED. NO C/O PAIN OR DISCOMFORT. CALL LIGHT WITHIN REACH.
[2017-08-17] MEDS: AMPICILLIN/SULBACTAM 1.5 GM in NACL 0.9% 50 ML IV SCH ×2 (05:36→18:00)
[2017-08-17 06:36] LABS: BASOPHILS % (AUTO) 0.6 % (0.0-2.0); EOSINOPHILS # (AUTO) 0.4 K/uL (0-0.4); HEMATOCRIT 32.3 % (36-48); HEMOGLOBIN 10.8 g/dL (12.0-16.0); LYMPHOCYTES # (AUTO) 1.3 K/uL (2.5-16.5); LYMPHOCYTES % (AUTO) 20.6 % (20.5-51.1); MEAN CORPUSCULAR HEMOGLOBIN 30 pg (27-31); MEAN CORPUSCULAR HGB CONC 33 g/dL (33-37); MEAN CORPUSCULAR VOLUME 91 fL (80-94); MONOCYTES # (AUTO) 0.6 K/uL (0.8-1.0); MONOCYTES % (AUTO) 9.6 % (1.7-9.3); NEUTROPHILS % (AUTO) 62.2 % (42.2-75.2); PLATELET COUNT (AUTO) 239 K/uL (140-450); RED BLOOD CELL COUNT(AUTO) 3.57 MIL/uL (4.20-5.40); RED CELL DISTRIBUTION WIDTH 12.3 % (11.6-13.7)
[2017-08-17] MEDS: LEVOTHYROXINE 0.025 MG TAB PO SCH (06:40)
[2017-08-17] MEDS: BLOOD GLUCOSE MONITORING 1 DEV DEV FS SCH ×4 (06:45→21:12)
[2017-08-17 06:51] LABS: ANION GAP 12.5 (8-16); CARBON DIOXIDE 26.5 mmol/L (21-32); CHLORIDE 102 mmol/L (98-107); CREATININE 1.5 mg/dL (0.6-1.3); GLUCOSE 118 mg/dL (74-106); SODIUM SERUM 137 mmol/L (136-145); UREA NITROGEN, BLOOD 23 mg/dL (7-18)
[2017-08-17] MEDS: ALBUTEROL SULFATE/IPRATROPIU 3 ML SOL IH SCH ×3 (07:05→19:32)
--- NOTE | 2017-08-17 07:10 | NUR ---
ENDORSED PT TO DAY SHIFT NURSE. PT IN STABLE CONDITION.
--- NOTE | 2017-08-17 07:11 | NUR ---
RECEIVED REPORT FROM LITERACY CONSULTANT NURSE KATHLEEN AT BEDSIDE FOR CONTINUITY OF CARE. PT IN STABLE CONDITION.
[2017-08-17 07:25] LABS: MAGNESIUM 1.8 mg/dL (1.8-2.4); PHOSPHORUS 3.7 mg/dL (2.5-4.9)
[2017-08-17 07:29] LABS: WHITE BLOOD COUNT (AUTO) 6.3 K/uL (4.8-10.8)
[2017-08-17 08:38] LABS: PROTHROMBIN TIME 14.3 secs (10.8-13.4)
[2017-08-17] MEDS ORDERED: FUROSEMIDE 20 MG TAB PO SCH (09:00)
[2017-08-17] MEDS: FUROSEMIDE 40 MG/4 ML VIAL IVP SCH ×2 (09:03→17:22)
[2017-08-17] MEDS: LACTOBACILLUS RHAMNOSUS GG 1 EACH CAP PO SCH (09:03)
[2017-08-17] MEDS: VENLAFAXINE 37.5 MG TAB PO SCH ×3 (09:03→17:12)
[2017-08-17] MEDS: DOCUSATE SODIUM 100 MG GELCAP PO SCH ×2 (09:04→21:15)
[2017-08-17] MEDS: LORATADINE 10 MG TAB PO SCH (09:04)
[2017-08-17] MEDS: HYDROCHLOROTHIAZIDE 25 MG TAB PO SCH (09:04)
[2017-08-17] MEDS: FLUTICASONE NASAL 50 MCG/ACTUATION 16 GM BTL NS SCH (09:05)
--- NOTE | 2017-08-17 09:19 | NUR ---
PATIENT HAS BEEN SCREENED AND CATEGORIZED MODERATE NUTRITION RISK. PATIENT WILL BE SEEN WITHIN 3-5 DAYS OF ADMISSION. 08/19/17-08/21/[address]
--- NOTE | 2017-08-17 09:35 | NUR ---
COMPLETED ORTHOSTATIC BP: LYING BP 139/67, HR 87; SITTING BP 140/79, HR 87, STANDING BP 137/77, HR 88. O2 SAT 94%. NO DIZZINESS, FAINTNESS, OR WEAKNESS REPORTED BY PT. PT GOT UP TO USE BATHROOM. AMBULATED WITH STEADY GAIT AND STAND BY ASSIST. PT'S DAUGHTER BROOKS CALLED. UPDATED HER ON STATUS OF PT. MADE PT AND DAUGHTER AWARE. PT BACK TO BED AND WANTED TO HAVE SCDS OFF RIGHT NOW. PLACED BED IN LOW POSITION, WHEELS LOCKED, CALL LIGHT WITHIN REACH. WILL CONTINUE TO MONITOR.
[2017-08-17] MEDS: INSULIN LISPRO SLIDING SCALE 100 UNITS/ML VIAL SUBQ PRN ×2 (11:47→17:29)
[2017-08-17 12:47] LABS: FOLIC ACID 13.8 ng/mL (>3.0)
--- NOTE | 2017-08-17 12:49 | NUR ---
PT REFUSED BREATHING TX NO SIGNS OF DISTRESS NOTED AT THIS TIME
[2017-08-17] MEDS: CYCLOBENZAPRINE 10 MG TAB PO SCH (17:10)
[2017-08-17] MEDS: WARFARIN 5 MG, WARFARIN 3 MG PO SCH ×2 (17:15)
--- NOTE | 2017-08-17 19:28 | NUR ---
ENDORSED PT TO MAGNETIC TAPE WINDER NURSE JIMMIE AT BEDSIDE FOR CONTINUITY OF CARE. PT IN STABLE CONDITION.
--- NOTE | 2017-08-17 19:30 | NUR ---
RECEIVED PT ON BED, AAOX4, VITAL SIGNS STABLE, NO SIGNS OF SOB, ON O2 AT 3L/NC, ENCOURAGE TO USE INCENTIVE SPIROMETRY, VERBALIZED UNDERSTANDING, IVF INFUSING WELL, PLAN OF CARE DISCUSSED, CALL LIGHT WITHIN REACH.
--- NOTE | 2017-08-17 20:10 | NUR ---
BLOOD SUGAR CHECKED DONE WITH 129 RESULT, NO COVERAGE NEEDED, US TECH HERE TO DO US CAROTID AT BEDSIDE.
--- NOTE | 2017-08-17 21:30 | NUR ---
PT AMBULATED TO BR WITH STEADY GAIT, VOIDED FREELY, ALL NEEDS ATTENDED.
[2017-08-18] VITALS: BP 151/78
--- NOTE | 2017-08-18 | NUR ---
PT SLEEPING, EASILY AROUSABLE, VITAL SIGNS TAKEN, BP SLIGHTLY ELEVATED, ASYMPTOMATIC, DENIES ANY PAIN, NO SOB NOTED, IVF INFUSING WELL, CONTINUE TO MONITOR CLOSELY.
--- NOTE | 2017-08-18 03:50 | NUR ---
PT SEEN AMBULATING BACK TO BED FROM THE TOILET, NO SOB NOTED, VITAL SIGNS STABLE, IVF INFUSING WELL, MONITORED CLOSELY.
[2017-08-18 04:00] VITALS: BP 144/74
[2017-08-18] MEDS: LEVOTHYROXINE 0.025 MG TAB PO SCH (05:54)
[2017-08-18] MEDS: AMPICILLIN/SULBACTAM 1.5 GM in NACL 0.9% 50 ML IV SCH (05:54)
--- NOTE | 2017-08-18 06:00 | NUR ---
AM LABS DRAW, BLOOD SUGAR CHECKED WITH 166 RESULT, WILL GIVE COVERAGE, DUE PO MEDICATION TAKEN, IVPB INFUSING WELL, NO DISTRESS NOTED, MONITORED CLOSELY.
[2017-08-18] MEDS: INSULIN LISPRO SLIDING SCALE 100 UNITS/ML VIAL SUBQ PRN ×2 (06:10→12:57)
[2017-08-18] MEDS: BLOOD GLUCOSE MONITORING 1 DEV DEV FS SCH ×2 (06:44→11:30)
[2017-08-18] MEDS: NACL 0.9% 1,000 ML IV SCH (07:01)
--- NOTE | 2017-08-18 07:25 | NUR ---
PT SLEEPING, NO SIGNS OF DISTRESS, REPORT GIVEN TO SUNG ADDISON FOR CONTINUITY OF CARE.
--- NOTE | 2017-08-18 07:26 | NUR ---
RECEIVED REPORT FROM THE INTERNET MARKETING ANALYST NURSE AT BEDSIDE FOR CONTINUITY OF CARE. PT IS SLEEPING. IV ON L AC 20G, NS INFUSING AT 100ML. WILL BE BACK TO ASSESS PT.
--- NOTE | 2017-08-18 07:38 | NUR ---
PATIENT AT SINK FOR MORNING CLEAN OFF SUPPLEMENTAL OXYGEN AT THIS TIME NO SOB NOTED LITHOGRAPHIC PROOFER TO ATTEMPT HHN THERAPY AT AL LATER TIME
[2017-08-18 07:39] LABS: BASOPHILS # (AUTO) 0.1 K/uL (0.00-0.22); BASOPHILS % (AUTO) 0.9 % (0.0-2.0); EOSINOPHILS # (AUTO) 0.2 K/uL (0-0.4); EOSINOPHILS % (AUTO) 3.8 % (0.0-4.0); HEMOGLOBIN 10.7 g/dL (12.0-16.0); LYMPHOCYTES # (AUTO) 1.1 K/uL (2.5-16.5); LYMPHOCYTES % (AUTO) 19.6 % (20.5-51.1); MEAN CORPUSCULAR HEMOGLOBIN 29 pg (27-31); MEAN CORPUSCULAR HGB CONC 33 g/dL (33-37); MEAN CORPUSCULAR VOLUME 90 fL (80-94); MONOCYTES # (AUTO) 0.6 K/uL (0.8-1.0); MONOCYTES % (AUTO) 10.1 % (1.7-9.3); NEUTROPHILS # (AUTO) 3.9 K/uL (1.8-7.7); NEUTROPHILS % (AUTO) 65.6 % (42.2-75.2); PLATELET COUNT (AUTO) 242 K/uL (140-450); RED BLOOD CELL COUNT(AUTO) 3.68 MIL/uL (4.20-5.40); RED CELL DISTRIBUTION WIDTH 12.4 % (11.6-13.7); WHITE BLOOD COUNT (AUTO) 5.9 K/uL (4.8-10.8)
--- NOTE | 2017-08-18 07:45 | NUR ---
PT WASHING UP. AMBULATING WITH STEADY GAIT. NOTED TO RAPID BREATHING. HAD PT SIT, V/S WITHIN NORMAL RANGE. AFEBRILE. O2 SAT WAS IN THE LOW 80'S. ADMINISTERED O2 VIA NC 3L. PT O2 SAT WENT UP TO 94-95%. BILATERAL DIMINISHED LUNG SOUNDS. R/T HERE. WILL START BREATHING TX. PER RETREAD BUILDER NURSE, PT HAD US CAROTID. RESULTS WERE NEGATIVE. I/S AT BEDSIDE. ENCOURAGED PT TO USE OFTEN. WILL CONTINUE TO MONITOR PT.
[2017-08-18] MEDS: ALBUTEROL SULFATE/IPRATROPIU 3 ML SOL IH SCH ×2 (07:48→13:02)
[2017-08-18 08:00] VITALS: BP 152/72
[2017-08-18] MEDS ORDERED: FERROUS SULFATE 325 MG TABEC PO SCH (08:00)
[2017-08-18 08:01] LABS: PROTHROMBIN TIME 15.7 secs (10.8-13.4)
[2017-08-18 08:06] LABS: ANION GAP 13.4 (8-16); CARBON DIOXIDE 25.5 mmol/L (21-32); CHLORIDE 100 mmol/L (98-107); CREATININE 1.4 mg/dL (0.6-1.3); GLUCOSE 165 mg/dL (74-106); POTASSIUM 3.9 mmol/L (3.5-5.1); SODIUM SERUM 135 mmol/L (136-145); UREA NITROGEN, BLOOD 23 mg/dL (7-18)
[2017-08-18 08:24] LABS: MAGNESIUM 1.5 mg/dL (1.8-2.4); PHOSPHORUS 3.2 mg/dL (2.5-4.9)
[2017-08-18] MEDS: FUROSEMIDE 40 MG/4 ML VIAL IVP SCH (08:52)
[2017-08-18] MEDS: VENLAFAXINE 37.5 MG TAB PO SCH ×2 (08:53→12:57)
[2017-08-18] MEDS: LORATADINE 10 MG TAB PO SCH (08:53)
[2017-08-18] MEDS: LACTOBACILLUS RHAMNOSUS GG 1 EACH CAP PO SCH (08:53)
[2017-08-18] MEDS: CYCLOBENZAPRINE 10 MG TAB PO SCH ×2 (08:53→12:58)
[2017-08-18] MEDS: FLUTICASONE NASAL 50 MCG/ACTUATION 16 GM BTL NS SCH (08:54)
[2017-08-18] MEDS: HYDROCHLOROTHIAZIDE 25 MG TAB PO SCH (08:54)
[2017-08-18] MEDS: DOCUSATE SODIUM 100 MG GELCAP PO SCH (08:54)
--- NOTE | 2017-08-18 09:00 | NUR ---
IV INFILTRATED. REMOVED IV ACCESS. PT TO BE DC TODAY. WILL NOT START ANOTHER AT PT'S REQUEST. ADMINISTERED MORNING MEDS. PT TOLERATED WELL. HELD FUROSEMIDE D/T NO IV ACCESS. SPOKE TO DR. ONTIVEROS. SHE WILL SWITCH TO PO LASIX. WILL ADMINISTER WHEN AVAILABLE.
[2017-08-18] MEDS ORDERED: FUROSEMIDE 40 MG TAB PO SCH ×2 (09:38→17:00)
[2017-08-18] MEDS ORDERED: MAGNESIUM OXIDE 400 MG TAB PO SCH (10:39)
--- NOTE | 2017-08-18 11:40 | NUR ---
SON HERE. CONCERNED ABOUT PT AND WANTED TO KNOW HOW HER CONDITION WAS. WENT OVER LABS. POSSIBLE D/C TODAY. NO ORDERS YET. WILL CONTINUE TO MONITOR PT.
[2017-08-18 12:00] VITALS: BP 146/81
--- NOTE | 2017-08-18 13:19 | NUR ---
PT RESTING COMFORTABLY. NO SIGNS OF DISTRESS. NO COMPLAINTS AT THIS TIME. WILL CONTINUE TO MONITOR PT.
--- NOTE | 2017-08-18 13:40 | NUR ---
P.T. NOTES P.T. EVAL DONE, D/C FROM P.T. AFTER EVAL, NURSING TO AMBULATE PATIENT AD TERI.
[2017-08-18] MEDS ORDERED: GLIP5TAB4 PO (13:54)
[2017-08-18] MEDS ORDERED: LACT10CA PO (14:03)
[2017-08-18] MEDS ORDERED: AMOX-1000 PO (14:03)
--- NOTE | 2017-08-18 15:10 | NUR ---
D/C INSTRUCTIONS GIVEN. PT VERBALIZED UNDERSTANDING. REMOVED ID BAND. REMOVED TELE MONITOR. PT WILL GET DRESSED AND WILL GATHER PERSONAL BELONGINGS. WILL LET US KNOW WHEN SHE IS READY TO GO. WILL GET WHEELCHAIR READY. Addendum: 08/18/17 at 1547 by Rox Montenegro RN PT REFUSED THE POST OP SHOES. I ASKED HER TO WAIT FOR THEM WHILE I FETCHED THEM. SHE REFUSED AND SAID SHE WOULDN'T WEAR THEM ANYWAYS.
--- NOTE | 2017-08-18 15:20 | NUR ---
WHEELED PT OUT TO THE FRONT OF THE HOSPITAL. DAUGHTER WAITING IN CAR. PT IN STABLE CONDITION.
== END 2017-08-18 15:20 | disposition home or self-care (01) | DRG 291 ==
LOC: MED 10:53 → MTU 13:28
PROVIDERS: ADMIT Family Medicine; ATTEND Family Medicine
DX: I13.0 Hypertensive heart and chronic kidney disease with heart failure and stage 1 through stage 4 chronic kidney disease, or unspecified chronic kidney disease (principal); N17.0 Acute kidney failure with tubular necrosis; J96.01 Acute respiratory failure with hypoxia; E44.0 Moderate protein-calorie malnutrition; D68.59 Other primary thrombophilia; E11.22 Type 2 diabetes mellitus with diabetic chronic kidney disease; E11.65 Type 2 diabetes mellitus with hyperglycemia; I48.91 Unspecified atrial fibrillation; E83.42 Hypomagnesemia; I50.43 Acute on chronic combined systolic (congestive) and diastolic (congestive) heart failure; E87.1 Hypo-osmolality and hyponatremia; G90.9 Disorder of the autonomic nervous system, unspecified; J01.90 Acute sinusitis, unspecified; J02.9 Acute pharyngitis, unspecified; I34.0 Nonrheumatic mitral (valve) insufficiency; N18.9 Chronic kidney disease, unspecified; E89.0 Postprocedural hypothyroidism; Z96.653 Presence of artificial knee joint, bilateral; F32.9 Major depressive disorder, single episode, unspecified; E66.9 Obesity, unspecified; H66.93 Otitis media, unspecified, bilateral; D64.9 Anemia, unspecified; E78.5 Hyperlipidemia, unspecified; S91.111A Laceration without foreign body of right great toe without damage to nail, initial encounter; S92.401A Displaced unspecified fracture of right great toe, initial encounter for closed fracture; Z79.01 Long term (current) use of anticoagulants; Z68.35 Body mass index [BMI] 35.0-35.9, adult; Z86.711 Personal history of pulmonary embolism; Z86.718 Personal history of other venous thrombosis and embolism; Z90.49 Acquired absence of other specified parts of digestive tract; Y93.89 Activity, other specified; Y92.89 Other specified places as the place of occurrence of the external cause; Y99.8 Other external cause status
CPT/HCPCS: 36415; 36600; 70450; 71010; 80048; 80053; 81003; 82607; 82728; 82746; 82803; 82948; 83036; 83540; 83605; 83735; 83880; 84100; 84439; 84443; 84484; 85025; 85045; 85610; 85730; 87040; 87081; 87086; 87804; 93005; 93880; 93925; 93970; 94640; 99285; J0295; J1815; J1940; J3475; J7030; J7620; Q0092

== ENCOUNTER 2017-08-31 12:40 | Outpatient (CLI) | payer OTHER ==
[~2017-08-31 12:40] MED LIST changes: +ACET-8386 PO; +ADA60 PO; +AMOX-1000 PO; -ASPI81CT89 PO; -BP MED; -CHOLESTEROL; +FURO-572 PO; +GLIP5TAB4 PO; +HYDR12.543 PO; -INSULIN; +LACT10CA PO; -ORE25
[2017-08-31 13:54] LABS: BASOPHILS # (AUTO) 0.2 K/uL (0.00-0.22); BASOPHILS % (AUTO) 3.1 % (0.0-2.0); EOSINOPHILS # (AUTO) 0.2 K/uL (0-0.4); EOSINOPHILS % (AUTO) 2.9 % (0.0-4.0); HEMATOCRIT 38.2 % (36-48); HEMOGLOBIN 12.4 g/dL (12.0-16.0); LYMPHOCYTES # (AUTO) 1.6 K/uL (2.5-16.5); LYMPHOCYTES % (AUTO) 29.1 % (20.5-51.1); MEAN CORPUSCULAR HEMOGLOBIN 29 pg (27-31); MEAN CORPUSCULAR HGB CONC 32 g/dL (33-37); MEAN CORPUSCULAR VOLUME 89 fL (80-94); MONOCYTES # (AUTO) 0.8 K/uL (0.8-1.0); NEUTROPHILS # (AUTO) 2.8 K/uL (1.8-7.7); NEUTROPHILS % (AUTO) 49.9 % (42.2-75.2); PLATELET COUNT (AUTO) 315 K/uL (140-450); RED BLOOD CELL COUNT(AUTO) 4.28 MIL/uL (4.20-5.40); RED CELL DISTRIBUTION WIDTH 14.4 % (11.6-13.7); WHITE BLOOD COUNT (AUTO) 5.6 K/uL (4.8-10.8)
[2017-08-31 13:58] LABS: APPEARANCE,URINE HAZY (CLEAR); BILIRUBIN,URINE NEGATIVE (NEGATIVE); BLOOD, URINE NEGATIVE (NEGATIVE); COLOR,URINE YELLOW (YELLOW); LEUKOCYTE ESTERASE ,URINE NEGATIVE (NEGATIVE); NITRITE, URINE NEGATIVE (NEGATIVE); PH,URINE 5.5 (5.0-9.0); UGLUCOSE NEGATIVE (NEGATIVE)
[2017-08-31 14:39] LABS: ALBUMIN 3.7 g/dL (3.4-5.0); ANION GAP 16.1 (8-16); ASPARTATE AMINOTRANSFERASE 17 U/L (15-37); CARBON DIOXIDE 24.9 mmol/L (21-32); CHLORIDE 104 mmol/L (98-107); CHOL/HDL RATIO 3.6 (1-4.5); GLUCOSE 149 mg/dL (74-106); HDL CHOLESTEROL 43 mg/dL (40-60); LDL (CALC) 79 mg/dL (60-100); SODIUM SERUM 140 mmol/L (136-145); THYROID STIMULATING HORMONE 0.42 uIU/mL (0.34-3.74); TOTAL BILIRUBIN 0.4 mg/dL (0.0-1.0); TRIGLYCERIDES 159 mg/dL (30-150)
[2017-08-31 14:50] LABS: UREA NITROGEN, BLOOD 63 mg/dL (7-18)
== END 2017-08-31 20:44 | disposition home or self-care (01) ==
LOC: MLB 12:40
DX: E11.29 Type 2 diabetes mellitus with other diabetic kidney complication (principal); E78.2 Mixed hyperlipidemia; M19.90 Unspecified osteoarthritis, unspecified site; I12.9 Hypertensive chronic kidney disease with stage 1 through stage 4 chronic kidney disease, or unspecified chronic kidney disease; E11.22 Type 2 diabetes mellitus with diabetic chronic kidney disease; N18.3 Chronic kidney disease, stage 3 (moderate)
CPT/HCPCS: 36415; 80053; 81003; 82043; 82306; 82570; 83036; 84439; 84443; 85025

== ENCOUNTER 2017-09-09 13:57 | Emergency (ER) | payer OTHER ==
[~2017-09-09] VITALS: Ht 165.1 cm; Wt 90.7 kg
[2017-09-09 14:03] VITALS: BP 115/63
--- NOTE | 2017-09-09 14:13 | NUR ---
PT W/C ASSISTED TO BED 1.
--- NOTE | 2017-09-09 14:15 | NUR ---
77F BIB FAMILY C/O RT FOOT, GREAT TOE, 1ST DIGIT THROBBING PAIN, RADIATES TO POSTERIOR RT FOOT, 10/10 X 3 DAYS; ERYTHEMA/SWELLING NOTED TO ANTERIOR RT FOOT, BELOW TOES AT THIS TIME; NO OPEN WOUND OR DRAINAGE NOTED AT THIS TIME; RT PEDAL PULSE +3, RT CAP REFILL IMMEDIATE, NO LOSS OF SENSATION TO RT FOOT AT THIS TIME; PT STATES NO RECENT TRAUMA OR INJURY TO RT FOOT AT THIS TIME; PT AA&OX4, PERRLA, BL LUNG SOUNDS CLEAR, RR EVEN/UNLABORED, SKIN IS WARM/DRY/INTACT AT THIS TIME; PT RESTING IN BED WITH HOB ELEVATED AND IN LOWEST POSITION; POSITIONED FOR COMFORT; ER MD MADE AWARE OF STATUS. WILL CONTINUE TO MONITOR.
--- NOTE | 2017-09-09 14:19 | NUR ---
ER MD DR. MACIEL EVALUATING PT AT BEDSIDE.
[2017-09-09] MEDS ORDERED: KETOROLAC 30 MG/ML VIAL IM ONE (14:25)
--- NOTE | 2017-09-09 14:34 | NUR ---
XRAY AT BEDSIDE.
[2017-09-09 16:12] VITALS: BP 134/71
--- NOTE | 2017-09-09 16:12 | NUR ---
Patient discharged with v/s stable. Patient O2 saturation at 93 % room air on discharge. Bl lung sounds clear, rr even/unlabored, pt speaking in full clear sentences at this time. Pt states no shortness of breath or difficulty breathing at this time. Pt states O2 saturation 93 % is normal for patient. ER MD Dr. Burns notified and ok to discharge. Written and verbal after care instructions given and explained. Patient alert, oriented and verbalized understanding of instructions. Wheelchair assisted to car by family. All questions addressed prior to discharge. ID band removed. Patient advised to follow up with PMD. Rx of KEFLEX 500MG CAP, NORCO 10MG-325MG TAB & NAPROSYN 500GM TAB given. Patient educated on indication of medication including possible reaction and side effects. Opportunity to ask questions provided and answered.
== END 2017-09-09 16:12 | disposition home or self-care (01) ==
LOC: MED 13:57
DX: L03.031 Cellulitis of right toe (principal); M13.871 Other specified arthritis, right ankle and foot; I10 Essential (primary) hypertension; E11.9 Type 2 diabetes mellitus without complications; Z90.89 Acquired absence of other organs; Z79.899 Other long term (current) drug therapy
CPT/HCPCS: 73660; 82948; 96372; 99284; J1885; Q0092

== ENCOUNTER 2017-10-18 13:16 | Outpatient (CLI) | payer OTHER ==
[2017-10-18 14:15] LABS: BASOPHILS # (AUTO) 0.2 K/uL (0.00-0.22); EOSINOPHILS # (AUTO) 0.1 K/uL (0-0.4); HEMATOCRIT 42.6 % (36-48); HEMOGLOBIN 13.4 g/dL (12.0-16.0); LYMPHOCYTES # (AUTO) 1.5 K/uL (2.5-16.5); MEAN CORPUSCULAR HEMOGLOBIN 28 pg (27-31); MEAN CORPUSCULAR HGB CONC 32 g/dL (33-37); MEAN CORPUSCULAR VOLUME 89 fL (80-94); MONOCYTES # (AUTO) 0.5 K/uL (0.8-1.0); NEUTROPHILS # (AUTO) 3.5 K/uL (1.8-7.7); PLATELET COUNT (AUTO) 267 K/uL (140-450); RED BLOOD CELL COUNT(AUTO) 4.77 MIL/uL (4.20-5.40); RED CELL DISTRIBUTION WIDTH 14.3 % (11.6-13.7); WHITE BLOOD COUNT (AUTO) 5.8 K/uL (4.8-10.8)
[2017-10-18 14:33] LABS: APPEARANCE,URINE CLEAR (CLEAR); BILIRUBIN,URINE NEGATIVE (NEGATIVE); BLOOD, URINE NEGATIVE (NEGATIVE); COLOR,URINE YELLOW (YELLOW); LEUKOCYTE ESTERASE ,URINE NEGATIVE (NEGATIVE); NITRITE, URINE NEGATIVE (NEGATIVE); PH,URINE 5.5 (5.0-9.0); UGLUCOSE NEGATIVE (NEGATIVE)
[2017-10-18 14:36] LABS: ALBUMIN 3.8 g/dL (3.4-5.0); ANION GAP 16.5 (8-16); ASPARTATE AMINOTRANSFERASE 14 U/L (15-37); CARBON DIOXIDE 23.3 mmol/L (21-32); CHLORIDE 108 mmol/L (98-107); CREATININE 1.5 mg/dL (0.6-1.3); GLUCOSE 157 mg/dL (74-106); PHOSPHORUS 2.5 mg/dL (2.5-4.9); POTASSIUM 4.8 mmol/L (3.5-5.1); SODIUM SERUM 143 mmol/L (136-145); TOTAL BILIRUBIN 0.4 mg/dL (0.0-1.0); UREA NITROGEN, BLOOD 28 mg/dL (7-18)
[2017-10-21 03:22] LABS: URINE TOTAL PROTEIN 89.8 mg/dL (0-12)
== END 2017-10-18 20:04 | disposition home or self-care (01) ==
LOC: MLB 13:16
PROVIDERS: ATTEND Internal Medicine Nephrology
DX: E11.22 Type 2 diabetes mellitus with diabetic chronic kidney disease (principal); I12.9 Hypertensive chronic kidney disease with stage 1 through stage 4 chronic kidney disease, or unspecified chronic kidney disease; N18.3 Chronic kidney disease, stage 3 (moderate); M19.90 Unspecified osteoarthritis, unspecified site
CPT/HCPCS: 36415; 80053; 81003; 82040; 82435; 82565; 82570; 82947; 83036; 84100; 84132; 84156; 84295; 84520; 85025

== ENCOUNTER 2018-01-27 14:42 | Outpatient (CLI) | payer OTHER ==
[2018-01-27 15:17] LABS: BASOPHILS % (AUTO) 0.6 % (0.0-2.0); EOSINOPHILS # (AUTO) 0.2 K/uL (0-0.4); EOSINOPHILS % (AUTO) 3.4 % (0.0-4.0); HEMOGLOBIN 12.3 g/dL (12.0-16.0); LYMPHOCYTES # (AUTO) 1.6 K/uL (2.5-16.5); LYMPHOCYTES % (AUTO) 35.4 % (20.5-51.1); MEAN CORPUSCULAR HEMOGLOBIN 30 pg (27-31); MEAN CORPUSCULAR HGB CONC 32 g/dL (33-37); MEAN CORPUSCULAR VOLUME 91.5 fL (80-94); MONOCYTES # (AUTO) 0.5 K/uL (0.8-1.0); MONOCYTES % (AUTO) 10.6 % (1.7-9.3); NEUTROPHILS # (AUTO) 2.2 K/uL (1.8-7.7); PLATELET COUNT (AUTO) 198 K/uL (140-450); RED BLOOD CELL COUNT(AUTO) 4.15 MIL/uL (4.20-5.40); RED CELL DISTRIBUTION WIDTH 13.7 % (11.6-13.7); WHITE BLOOD COUNT (AUTO) 4.5 K/uL (4.8-10.8)
[2018-01-27 15:20] LABS: APPEARANCE,URINE CLEAR (CLEAR); BILIRUBIN,URINE NEGATIVE (NEGATIVE); BLOOD, URINE TRACE-I (NEGATIVE); COLOR,URINE YELLOW (YELLOW); LEUKOCYTE ESTERASE ,URINE NEGATIVE (NEGATIVE); NITRITE, URINE NEGATIVE (NEGATIVE); UGLUCOSE NEGATIVE (NEGATIVE)
[2018-01-27 15:43] LABS: ALBUMIN 3.3 g/dL (3.4-5.0); ANION GAP 12.7 (8-16); ASPARTATE AMINOTRANSFERASE 16 U/L (15-37); CARBON DIOXIDE 26.3 mmol/L (21-32); CHLORIDE 107 mmol/L (98-107); CREATININE 1.4 mg/dL (0.6-1.3); GLUCOSE 160 mg/dL (74-106); SODIUM SERUM 141 mmol/L (136-145); TOTAL BILIRUBIN 0.4 mg/dL (0.0-1.0); UREA NITROGEN, BLOOD 25 mg/dL (7-18)
[2018-01-27 16:25] LABS: RBC,URINE 0-5 (RARE) /HPF (0-5)
[2018-01-27 16:26] LABS: WBC,URINE 0-5 (RARE) /HPF (0-5)
[2018-01-27 22:01] LABS: CREATININE,URINE RANDOM 99 mg/dL (30-125); TOTAL PROTEIN URINE 372 MG/DL
== END 2018-01-27 20:20 | disposition home or self-care (01) ==
LOC: MLB 14:42
PROVIDERS: ATTEND Internal Medicine Nephrology
DX: I12.9 Hypertensive chronic kidney disease with stage 1 through stage 4 chronic kidney disease, or unspecified chronic kidney disease (principal); E11.22 Type 2 diabetes mellitus with diabetic chronic kidney disease; N18.3 Chronic kidney disease, stage 3 (moderate); M19.90 Unspecified osteoarthritis, unspecified site
CPT/HCPCS: 36415; 80053; 81001; 82570; 84156; 85025

== ENCOUNTER 2018-04-05 12:55 | Outpatient (CLI) | payer OTHER | END 2018-04-05 20:49 | disposition home or self-care (01) | LOC: MRD 12:55 | PROVIDERS: ATTEND Neuromusculoskeletal Medicine, Sports Medicine | DX: M47.896 Other spondylosis, lumbar region (principal); I12.9 Hypertensive chronic kidney disease with stage 1 through stage 4 chronic kidney disease, or unspecified chronic kidney disease; E11.22 Type 2 diabetes mellitus with diabetic chronic kidney disease; N18.3 Chronic kidney disease, stage 3 (moderate) | CPT/HCPCS: 72110 ==

== ENCOUNTER 2018-05-23 12:08 | Outpatient (CLI) | payer OTHER ==
[2018-05-23 12:31] LABS: BASOPHILS % (AUTO) 0.5 % (0.0-2.0); EOSINOPHILS # (AUTO) 0.2 K/uL (0-0.4); EOSINOPHILS % (AUTO) 2.2 % (0.0-4.0); HEMATOCRIT 39.1 % (36-48); HEMOGLOBIN 12.6 g/dL (12.0-16.0); LYMPHOCYTES # (AUTO) 1.6 K/uL (2.5-16.5); LYMPHOCYTES % (AUTO) 22.5 % (20.5-51.1); MEAN CORPUSCULAR HEMOGLOBIN 30 pg (27-31); MEAN CORPUSCULAR HGB CONC 32 g/dL (33-37); MONOCYTES # (AUTO) 0.5 K/uL (0.8-1.0); MONOCYTES % (AUTO) 7.8 % (1.7-9.3); NEUTROPHILS # (AUTO) 4.7 K/uL (1.8-7.7); PLATELET COUNT (AUTO) 210 K/uL (140-450); RED BLOOD CELL COUNT(AUTO) 4.25 MIL/uL (4.20-5.40); RED CELL DISTRIBUTION WIDTH 13.8 % (11.6-13.7)
[2018-05-23 12:31] LABS: APPEARANCE,URINE CLEAR (CLEAR); BILIRUBIN,URINE NEGATIVE (NEGATIVE); BLOOD, URINE NEGATIVE (NEGATIVE); COLOR,URINE YELLOW (YELLOW); LEUKOCYTE ESTERASE ,URINE NEGATIVE (NEGATIVE); NITRITE, URINE NEGATIVE (NEGATIVE); PH,URINE 5.5 (5.0-9.0); UGLUCOSE NEGATIVE (NEGATIVE)
[2018-05-23 12:44] LABS: RBC,URINE 0-5 (RARE) /HPF (0-5); WBC,URINE 0-5 (RARE) /HPF (0-5)
[2018-05-23 13:02] LABS: ALBUMIN 3.6 g/dL (3.4-5.0); ANION GAP 18.1 (8-16); ASPARTATE AMINOTRANSFERASE 16 U/L (15-37); CARBON DIOXIDE 21.6 mmol/L (21-32); CHLORIDE 103 mmol/L (98-107); CREATININE 3.1 mg/dL (0.6-1.3); GLUCOSE 137 mg/dL (74-106); POTASSIUM 4.7 mmol/L (3.5-5.1); SODIUM SERUM 138 mmol/L (136-145); TOTAL BILIRUBIN 0.5 mg/dL (0.0-1.0)
[2018-05-23 13:06] LABS: UREA NITROGEN, BLOOD 64 mg/dL (7-18)
== END 2018-05-23 20:25 | disposition home or self-care (01) ==
LOC: MLB 12:08
PROVIDERS: ATTEND Internal Medicine Nephrology
DX: I13.0 Hypertensive heart and chronic kidney disease with heart failure and stage 1 through stage 4 chronic kidney disease, or unspecified chronic kidney disease (principal); E11.22 Type 2 diabetes mellitus with diabetic chronic kidney disease; N18.4 Chronic kidney disease, stage 4 (severe); I50.9 Heart failure, unspecified; M19.90 Unspecified osteoarthritis, unspecified site
CPT/HCPCS: 36415; 80053; 81001; 84157; 85025

== ENCOUNTER 2018-06-10 09:56 | Inpatient (IN) | payer OTHER ==
[~2018-06-10] VITALS: Ht 162.6 cm; Wt 88.5 kg
[2018-06-10 10:05] VITALS: BP 163/86
[2018-06-10] MEDS ORDERED: ALBUTEROL 0.083% 2.5 MG/3 ML NEBU INH ONE ×2 (10:05→14:45)
[2018-06-10] MEDS ORDERED: ALBUTEROL SULFATE/IPRATROPIU 3 ML SOL IH ONE ×2 (10:05→14:45)
[2018-06-10] MEDS ORDERED: predniSONE 20 MG TAB PO ONE (10:05)
--- NOTE | 2018-06-10 10:05 | NUR ---
BIB DAUGHTER WITH C/O SOB THIS MORNING; WAS ADMITTED ON ON 05/25 FOR SYNCOPE HX; CARDIAC DISORDER, DM, THN, RENAL DZ, THYROID DZ. DENIES N/V/D; PT WAS SWEATING BADLY, HOOKED UP PATIENT TO BEDSIDE MONITOR SHOWSING HR 140S, O2 SATS 80 %. PUT PT ON O2, O2 SATS INCREASED TO 92% AFTER THAT INCREASED TO 100%.AWAKE, ALERT. LUNGS CLEAR BL; HR EVEN AND REGULAR; PT DENIES ANY FEVER, CP, OR COUGH AT THIS TIME; PATIENT POSITIONED FOR COMFORT; HOB ELEVATED; BEDRAILS UP X2; BED DOWN. ER MD MADE AWARE OF PT STATUS. PT'S DAUGHTER AT BEDSIDE.
--- NOTE | 2018-06-10 10:28 | NUR ---
HHN RX GIVEN PLACED PT ON 3LPM NC SPO2 .94 NO RESP DISTRES NOTED PT AWAKE ALERT
--- NOTE | 2018-06-10 10:29 | NUR ---
XRAY AT BEDSIDE AT THIS TIME.
--- NOTE | 2018-06-10 10:32 | NUR ---
PHLEB AT BEDSIDE AT THIS TIME.
--- NOTE | 2018-06-10 10:34 | NUR ---
PT SPO2 STAYING IN HIGH 80,S LOW 90,S PUT PT BACK ON 100 NRB MASK SPO2 .99 RN AWARE
[2018-06-10 10:50] LABS: BASOPHILS % (AUTO) 0.5 % (0.0-2.0); EOSINOPHILS # (AUTO) 0.1 K/uL (0-0.4); EOSINOPHILS % (AUTO) 0.9 % (0.0-4.0); HEMATOCRIT 37.7 % (36-48); HEMOGLOBIN 11.9 g/dL (12.0-16.0); LYMPHOCYTES # (AUTO) 1.5 K/uL (2.5-16.5); LYMPHOCYTES % (AUTO) 16.9 % (20.5-51.1); MEAN CORPUSCULAR HEMOGLOBIN 30 pg (27-31); MEAN CORPUSCULAR HGB CONC 32 g/dL (33-37); MEAN CORPUSCULAR VOLUME 93.9 fL (80-94); MONOCYTES # (AUTO) 0.6 K/uL (0.8-1.0); MONOCYTES % (AUTO) 7.2 % (1.7-9.3); NEUTROPHILS # (AUTO) 6.6 K/uL (1.8-7.7); NEUTROPHILS % (AUTO) 74.5 % (42.2-75.2); PLATELET COUNT (AUTO) 180 K/uL (140-450); RED BLOOD CELL COUNT(AUTO) 4.01 MIL/uL (4.20-5.40); RED CELL DISTRIBUTION WIDTH 14.5 % (11.6-13.7); WHITE BLOOD COUNT (AUTO) 8.8 K/uL (4.8-10.8)
[2018-06-10 11:09] LABS: ANION GAP 5.8 (8-16); CARBON DIOXIDE 26.3 mmol/L (21-32); CHLORIDE 108 mmol/L (98-107); CREATININE 1.6 mg/dL (0.6-1.3); GLUCOSE 142 mg/dL (74-106); POTASSIUM 5.1 mmol/L (3.5-5.1); SODIUM SERUM 135 mmol/L (136-145); UREA NITROGEN, BLOOD 22 mg/dL (7-18)
[2018-06-10 11:12] LABS: PROTHROMBIN TIME 13.1 secs (10.8-13.4)
[2018-06-10 11:15] LABS: ALBUMIN 3.3 g/dL (3.4-5.0); ASPARTATE AMINOTRANSFERASE 22 U/L (15-37); TOTAL BILIRUBIN 0.4 mg/dL (0.0-1.0)
[2018-06-10] MEDS ORDERED: NACL 0.9% 1,000 ML IV ONE (12:20)
--- NOTE | 2018-06-10 12:35 | NUR ---
PT'S DAUGHTER LEFT FOR HOME MEDS SHE DOES NOT KNOW WHAT MEDICATION HER MOM TAKE. PT STATED SHE WANTS HER DAUGHTER TO SIGN THE CT CONSENT WITH CONTRAST. CHARGE NURSE BETO AND MADE AWARE.
--- NOTE | 2018-06-10 13:10 | NUR ---
PT'S DAUGHTER BACK TO UNIT, PT'S DAUGHTER STATED SHE WANTS TO CALL HER RN OPERATING ROOM TO CHECK IS IT OK TO DO CT WITH CONTRAST. CHARGE NURSE AND MADE AWARE.
[2018-06-10] MEDS ORDERED: MONT10TA35 PO (13:48)
[2018-06-10] MEDS ORDERED: POTA10TE30 PO (13:48)
[2018-06-10] MEDS ORDERED: ATOR20TA40 PO (13:48)
[2018-06-10] MEDS ORDERED: LISI10TA11 PO (13:48)
[2018-06-10] MEDS ORDERED: PRED10TA5 PO (13:48)
--- NOTE | 2018-06-10 14:15 | NUR ---
PT BACK FROM CT
--- NOTE | 2018-06-10 14:20 | NUR ---
PT AMBULATED TO BATHROOM
--- NOTE | 2018-06-10 14:24 | NUR ---
CAME BACK FROM LUNCH BREAK, RECEIVED REPORT PT HAS SHORTNESS OF BREATH AFTER WALKING TO BATHROOM WITH MINIMAL PHYSICAL EXERTION.CHECKED PATIENT, PT AWAKE,ALERT. BEDSIDE MONITOR SHOWS BP 130/79, HR 33, RR 19, O2 SATS 99%. WILL CONTINUE TO MONITOR. TOLD PT WE WILL GIVE HER BEDPAN IF SHE NEEDS TO GO BATHROOM. Addendum: 06/10/18 at 1556 by RUPERT HR 133
[2018-06-10] MEDS ORDERED: MORPHINE SULFATE 4 MG/ML SYR IVP ONE (14:45)
[2018-06-10] MEDS ORDERED: cefTRIAXone 1,000 MG in DEXT 5% MINI-BAG PLUS 50 ML IV ONE (14:50)
[2018-06-10] MEDS ORDERED: cefTRIAXone 1,000 MG VIAL ONE (15:00)
[2018-06-10] MEDS ORDERED: ZOLPIDEM 5 MG TAB PO PRN (15:05)
[2018-06-10] MEDS ORDERED: ACETAMINOPHEN 325 MG TAB PO PRN (15:05)
[2018-06-10] MEDS ORDERED: MORPHINE SULFATE 2 MG/ML SYR IVP PRN (15:05)
[2018-06-10] MEDS ORDERED: ONDANSETRON 4 MG/2 ML VIAL IM/IVP PRN (15:05)
[2018-06-10] MEDS ORDERED: HYDROcodone/APAP 5/325 MG 1 TAB TAB PO PRN (15:05)
--- NOTE | 2018-06-10 15:05 | NUR ---
REMOVED PT FROM 100%NRB AND PLACED ON .50 VENTI MASK PT SPO2 98% RN AWARE
[2018-06-10] MEDS ORDERED: DEXTROSE 50% 50 ML SYR IVP PRN (15:25)
[2018-06-10] MEDS ORDERED: HYDROcodone/APAP 10/325 MG 1 TAB TAB PO PRN (15:50)
--- NOTE | 2018-06-10 15:50 | NUR ---
US TECH AT BEDSIDE.
[2018-06-10] MEDS ORDERED: CARV3.12 PO (16:00)
[2018-06-10] MEDS ORDERED: GLIP5TAB4 PO (16:00)
[2018-06-10] MEDS ORDERED: ADA60 PO (16:00)
[2018-06-10] MEDS ORDERED: PANT40EC PO (16:04)
[2018-06-10] MEDS ORDERED: LEVO0.124 PO (16:04)
[2018-06-10] MEDS ORDERED: ACET-787 PO (16:04)
[2018-06-10] MEDS ORDERED: FLO44 IH (16:04)
[2018-06-10] MEDS ORDERED: VITD1000 PO (16:04)
--- NOTE | 2018-06-10 16:15 | NUR ---
PT AWAKE, ALERT. ON O2 FIO2 40 % MASK. NO S/S OF RESPIRATORY DISTRESS NOTED. TRANSFERRED PT TO TELE 107B WITH JEM. REPORT GIVEN TO MIGDALIA ADDISON.
--- NOTE | 2018-06-10 16:20 | NUR ---
RECEIVED PT REPORT FROM ER NURSE AT BEDSIDE. PT IS AAOX4. PT IS ABLE TO TRANSFER HERSELF FROM [facility] TO HER BED BY ROLLING. PT'S CHIEF COMPLAIN WAS SOB. DX SOB. CT CHEST SHOWS MODERATE RIGHT AND MILD LEFT PLEURAL EFFUSION. PT IS ON VENTURI MASK 12L, 40% FIO2. VITALS TAKEN. PT IS IN STABLE CONDITION. MRSA SWAB DONE. SENT TO LAB. INITIAL ASSESSMENT DONE. NO EDEMA NOTED. FALL PROTOCOLS APPLIED. ORIENTED PT TO ROOM, BED IN LOWEST POSITION, CALL LIGHT WITHIN REACH.
[2018-06-10] MEDS: BLOOD GLUCOSE MONITORING 1 DEV DEV FS SCH ×2 (16:30→20:25)
[2018-06-10 16:43] LABS: MAGNESIUM 1.4 mg/dL (1.8-2.4); PHOSPHORUS 3.5 mg/dL (2.5-4.9); THYROID STIMULATING HORMONE 1.39 uIU/mL (0.34-3.74)
[2018-06-10] MEDS ORDERED: glipiZIDE 5 MG TAB PO SCH (17:00)
[2018-06-10] MEDS ORDERED: WARFARIN PO SCH ×2 (17:00)
--- NOTE | 2018-06-10 17:00 | NUR ---
URINE COLLECTED, INFLUENZA SWAB DONE. SENT TO LAB.
[2018-06-10] MEDS ORDERED: ALBUTEROL SULFATE/IPRATROPIU 3 ML SOL IH PRN (17:05)
--- NOTE | 2018-06-10 17:05 | NUR ---
CALLED RT GREEN TO COLLECT SPUTUM SAMPLE.
[2018-06-10] MEDS ORDERED: FUROSEMIDE 20 MG/2 ML VIAL IVP SCH (17:10)
[2018-06-10 17:30] VITALS: BP 135/62
[2018-06-10] MEDS: NACL 0.9% 1,000 ML IV SCH (17:30)
[2018-06-10 17:33] LABS: APPEARANCE,URINE CLEAR (CLEAR); BILIRUBIN,URINE NEGATIVE (NEGATIVE); BLOOD, URINE NEGATIVE (NEGATIVE); COLOR,URINE YELLOW (YELLOW); LEUKOCYTE ESTERASE ,URINE NEGATIVE (NEGATIVE); NITRITE, URINE POSITIVE (NEGATIVE); UGLUCOSE NEGATIVE (NEGATIVE)
[2018-06-10 17:36] LABS: RBC,URINE NONE SEEN /HPF (0-5); WBC,URINE 0-5 (RARE) /HPF (0-5)
[2018-06-10] MEDS: INSULIN LISPRO SLIDING SCALE 100 UNITS/ML VIAL SUBQ PRN ×2 (17:52→20:13)
[2018-06-10 17:59] LABS: BARBITURATE, URINE NEG. ng/ml (NEG <=200); BENZODIAZEPINE, URINE NEG. ng/mL (NEG <=200); CANNABINOID, URINE NEG. ng/mL (NEG <=50); COCAINE, URINE NEG. ng/mL (NEG <=300); OPIATE, URINE POS. ng/mL (NEG <=2000); PHENCYCLIDINE SCREEN,URINE NEG. ng/mL (NEG <=25)
--- NOTE | 2018-06-10 18:20 | NUR ---
PT HAS BEEN SEEN BY DR GAO. NO S/S OF ACUTE DISTRESS.
[2018-06-10] MEDS: ALBUTEROL SULFATE/IPRATROPIU 3 ML SOL IH SCH (19:07)
--- NOTE | 2018-06-10 19:25 | NUR ---
ENDORSED PT TO CAKE PUNCHER RN. PT IN STABLE CONDITION.
--- NOTE | 2018-06-10 19:30 | NUR ---
RECEIVED PATIENT AWAKE RESTING ON BED WITH NC 4L IN PLACE ACCOMPANIED BY FAMILY MEMBER. PATIENT WAS AAOX3,AMBULATORY. DISCUSSED PLAN OF CARE AND VERBALIZED UNDERSTANDING. CALL LIGHT WITHIN REACH. FALL PRECAUTION APPLIED. WILL CONTINUE TO MONITOR.
[2018-06-10 20:00] VITALS: BP 145/70
[2018-06-10] MEDS: CARVEDILOL 3.125 MG TAB PO SCH (20:17)
[2018-06-10] MEDS: NIFEdipine 60 MG TABER PO SCH (20:17)
[2018-06-10] MEDS: metroNIDAZOLE 500 MG/NS PREMIX 100 ML IV SCH (20:19)
--- NOTE | 2018-06-10 21:00 | NUR ---
SCHEDULE MEDICATION GIVEN TOLERATED WELL. SPUTUM COLLECTED AND SEND TO LAB. BS TAKEN WITH COVERAGE PER SLIDING SCALE. PATIENT IN HIGH FOWLERS NC 4L IN PLACE. FALL PRECAUTION APPLIED. NO S/S OF DISTRESS NOTED AT THIS TIME. WILL CONTINUE TO MONITOR.
[2018-06-11] VITALS: BP 136/64
--- NOTE | 2018-06-11 | NUR ---
V/S TAKEN AND RECORDED WITHIN NORMAL LIMITS. REPOSITIONED PATIENT AND PLACE IN COMFORTABLE POSITION. ALL NEEDS ATTENDED. NO S/S OF DISTRESS NOTED AT THIS TIME.
[2018-06-11] MEDS: ALBUTEROL SULFATE/IPRATROPIU 3 ML SOL IH SCH ×5 (00:17→18:53)
[2018-06-11] MEDS ORDERED: MAGNESIUM OXIDE 400 MG TAB PO SCH (02:30)
--- NOTE | 2018-06-11 02:30 | NUR ---
SCHEDULE MEDICATION GIVEN TOLERATED WELL. ASSIST PATIENT IN COMFORTABLE POSITION. BLANKET GIVEN FOR COMFORT. NO S/S OF DISTRESS NOTED AT THIS TIME. CALL LIGHT WITHIN REACH.
[2018-06-11 04:00] VITALS: BP 118/57
--- NOTE | 2018-06-11 04:00 | NUR ---
V/S TAKEN AND RECORDED. NO S/S OF DISTRESS NOTED. WILL CONTINUE TO MONITOR.
[2018-06-11] MEDS: metroNIDAZOLE 500 MG/NS PREMIX 100 ML IV SCH ×3 (04:22→20:19)
[2018-06-11] MEDS: LEVOTHYROXINE 0.1 MG, LEVOTHYROXINE 0.025 MG PO SCH ×2 (06:21)
[2018-06-11] MEDS: PANTOPRAZOLE 40 MG TABEC PO SCH (06:21)
[2018-06-11 06:58] LABS: BASOPHILS % (AUTO) 0.2 % (0.0-2.0); EOSINOPHILS % (AUTO) 0.2 % (0.0-4.0); HEMOGLOBIN 9.9 g/dL (12.0-16.0); LYMPHOCYTES # (AUTO) 1.4 K/uL (2.5-16.5); MEAN CORPUSCULAR HEMOGLOBIN 30 pg (27-31); MEAN CORPUSCULAR HGB CONC 32 g/dL (33-37); MEAN CORPUSCULAR VOLUME 92.8 fL (80-94); MONOCYTES # (AUTO) 0.6 K/uL (0.8-1.0); MONOCYTES % (AUTO) 11.6 % (1.7-9.3); NEUTROPHILS # (AUTO) 2.9 K/uL (1.8-7.7); PLATELET COUNT (AUTO) 168 K/uL (140-450); RED BLOOD CELL COUNT(AUTO) 3.34 MIL/uL (4.20-5.40); RED CELL DISTRIBUTION WIDTH 14.3 % (11.6-13.7); WHITE BLOOD COUNT (AUTO) 4.9 K/uL (4.8-10.8)
[2018-06-11] MEDS: BLOOD GLUCOSE MONITORING 1 DEV DEV FS SCH ×4 (07:04→20:37)
[2018-06-11 07:11] LABS: PROTHROMBIN TIME 13.3 secs (10.8-13.4)
[2018-06-11 07:14] LABS: ANION GAP 11.9 (8-16); CARBON DIOXIDE 24.7 mmol/L (21-32); CHLORIDE 106 mmol/L (98-107); CREATININE 1.5 mg/dL (0.6-1.3); GLUCOSE 127 mg/dL (74-106); POTASSIUM 4.6 mmol/L (3.5-5.1); SODIUM SERUM 138 mmol/L (136-145); UREA NITROGEN, BLOOD 29 mg/dL (7-18)
[2018-06-11 07:17] LABS: CHOL/HDL RATIO 2.8 (1-4.5); MAGNESIUM 1.6 mg/dL (1.8-2.4); PHOSPHORUS 4.2 mg/dL (2.5-4.9)
--- NOTE | 2018-06-11 07:20 | NUR ---
GAVE REPORT TO AM SHIFT NURSE AT BEDSIDE FOR CONTINUITY OF CARE. PATIENT IN STABLE CONDITION.
--- NOTE | 2018-06-11 07:30 | NUR ---
RECEIVED PT ON BED AAOX4. NO SOB NOTED. NO C/O PAIN AT THIS TIME. IV TO LT HAND PATENT AND INTACT. CHEST DIMINISHED AIR ENTRY TO THE BASES, ON ROOM AIR AT 92% OXYGEN SATS. ABDOMEN SOFT, BOWEL SOUNDS PRESENT. INSTRUCTED PT TO CALL FOR ASSISTANCE, CALL LIGHT WITHIN REACH, PT VERBALIZED UNDERSTANDING.
--- NOTE | 2018-06-11 07:54 | NUR ---
INSTRUCTED PT NPO FOR ULTRASOUND OF ABDOMEN, PT VERBALIZED UNDERSTANDING.
[2018-06-11 08:00] VITALS: BP 126/46
--- NOTE | 2018-06-11 08:20 | NUR ---
ULTRASOUND OF ABD ON GOING AT THE BEDSIDE.
[2018-06-11] MEDS ORDERED: FUROSEMIDE 20 MG TAB PO SCH (09:00)
[2018-06-11] MEDS ORDERED: LISINOPRIL 10 MG TAB PO SCH (09:00)
[2018-06-11] MEDS ORDERED: WARFARIN SODIUM 8 MG PO SCH (09:00)
[2018-06-11] MEDS ORDERED: VENLAFAXINE XR 75 MG CAPER PO SCH (09:00)
[2018-06-11] MEDS ORDERED: MAG SULF 2000 MG/WATER PREMIX 50 ML IV SCH (09:00)
[2018-06-11] MEDS ORDERED: ERGOCALCIFEROL 50,000 IU SGL PO SCH (09:00)
[2018-06-11] MEDS ORDERED: NON-FORMULARY ITEM (Levothyroxine Sodium* (Synthroid*) 0.125 MG) PO SCH (09:00)
[2018-06-11] MEDS ORDERED: CLINICAL MONITORING MC SCH (09:00)
--- NOTE | 2018-06-11 09:00 | NUR ---
ULTRASOUND COMPLETED. BREAKFAST SERVED.
[2018-06-11] MEDS: NIFEdipine 60 MG TABER PO SCH ×2 (09:44→20:18)
[2018-06-11] MEDS: LORATADINE 10 MG TAB PO SCH (09:44)
[2018-06-11] MEDS: LACTOBACILLUS RHAMNOSUS GG 1 EACH CAP PO SCH (09:45)
[2018-06-11] MEDS: CARVEDILOL 3.125 MG TAB PO SCH ×2 (09:45→20:18)
[2018-06-11] MEDS: POTASSIUM CHLORIDE 10 MEQ TABER PO SCH (09:45)
[2018-06-11] MEDS: MONTELUKAST SODIUM 10 MG TAB PO SCH (09:45)
[2018-06-11] MEDS: predniSONE 10 MG TAB PO SCH (09:45)
[2018-06-11] MEDS: FUROSEMIDE 20 MG/2 ML VIAL IVP SCH (09:46)
--- NOTE | 2018-06-11 11:39 | NUR ---
06/11/18 RD INITIAL ASSESSMENT COMPLETED PLEASE REFER TO NUTRITION ASSESSMENT UNDER CARE ACTIVITY FOR ESTIMATED NEEDS. RECOMMENDATIONS: 1. CONTINUE CURRENT DIET TOLERATED. 2. APPRECIATE FOOD PREFERENCES. 3. RD WILL FOLLOW UP IN 3-5 DAYS; MODERATE RISK. [address], [facility]
[2018-06-11 12:00] VITALS: BP 143/57
[2018-06-11] MEDS ORDERED: VENLAFAXINE 37.5 MG TAB PO SCH (12:00)
[2018-06-11] MEDS: INSULIN LISPRO SLIDING SCALE 100 UNITS/ML VIAL SUBQ PRN ×3 (12:25→20:24)
--- NOTE | 2018-06-11 13:00 | NUR ---
PT AMBULATED TO THE BATHROOM, ON ROOM AIR, WITH O2 ADRIEN OF 93%. ACTIVITY TOLERATED WELL.
[2018-06-11] MEDS: NACL 0.9% 1,000 ML IV SCH (15:05)
[2018-06-11 16:00] VITALS: BP 130/65
--- NOTE | 2018-06-11 16:00 | NUR ---
BEDSIDE COMMODE PLACED AT THE BEDSIDE. INSTRUCTED PT TO USE BEDSIDE COMMODE AT NIGHT, PT VERBALIZED UNDERSTANDING.
[2018-06-11] MEDS ORDERED: WARFARIN 5 MG TAB PO SCH (17:00)
[2018-06-11] MEDS: ATORVASTATIN 20 MG TAB PO SCH (17:37)
--- NOTE | 2018-06-11 17:55 | NUR ---
PT AWAKE, TALKING TO FAMILY AT THE BEDSIDE. NO COMPLAINTS MADE.
--- NOTE | 2018-06-11 18:57 | NUR ---
PT AWAKE. NO SOB NOTED. NO COMPLAINTS MADE. DAUGHTER AT THE BEDSIDE. WILL ENDORSE TO NEXT SHIFT NURSE FOR CONTINUITY OF CARE.
--- NOTE | 2018-06-11 19:25 | NUR ---
RECEIVED PT ON BED, AAOX4, DENIES ANY PAIN, NO SOB NOTED, BREATHING TX PER RT, ON O2 AT 3L/NC, VITAL SIGNS TAKEN, ATRIAL FLUTTER ON TELE, DAUGHTER NEIL AT BEDSIDE ANXIOUS ABOUT IRREGULAR HR, REQUESTING EKG TO BE DONE TO PT, WILL CALL RESIDENT ON DUTY, PT DENIES ANY PAIN, PLAN OF CARE DISCUSS, SAFETY MEASURES IN PLACE, CALL LIGHT WITHIN REACH.
[2018-06-11 20:00] VITALS: BP 148/54
--- NOTE | 2018-06-11 20:00 | NUR ---
DR PUGA TALKED TO DAUGHTER AT BEDSIDE, ALL QUESTIONS ANSWERED AND PLAN OF CARE DISCUSSED BY RESIDENT ON DUTY, PT'S DAUGHTER AGREEABLE, ALL NEEDS ATTENDED.
[2018-06-11] MEDS: VENLAFAXINE 37.5 MG TAB PO SCH (20:19)
--- NOTE | 2018-06-11 20:40 | NUR ---
BLOOD SUGAR CHECKED WITH 273 RESULT, COVERAGE GIVEN, SNACK PROVIDED, DUE MEDS ADMINISTERED WITH EDUCATION PROVIDED, ALL NEEDS ATTENDED.
[2018-06-12 00:16] VITALS: BP 134/60
--- NOTE | 2018-06-12 01:35 | NUR ---
PT ASLEEP, NO OB, NO RESPIRATORY DISTRESS NOTED.HHNTX HOLD DUE TO UNSTABLE HR . BS ARE BILAT CLEAR AND PER FAMILY REQUEST
--- NOTE | 2018-06-12 01:47 | NUR ---
PT AWAKE, AMBULATED TO BR WITH STANDBY ASSIST, VOIDED FREELY, PT WENT BACK TO BED AND RESUMED O2 AND IVF, SLIGHT SOB NOTED, PAGED RT SHALONDA FOR BREATHING TX, MONITORED CLOSELY.
[2018-06-12 04:00] VITALS: BP 127/58
--- NOTE | 2018-06-12 04:00 | NUR ---
PT SLEEPING, EASILY AROUSABLE, VITAL SIGNS STABLE, NO SOB NOTED, IVF INFUSING WELL, MONITORED CLOSELY.
[2018-06-12] MEDS: metroNIDAZOLE 500 MG/NS PREMIX 100 ML IV SCH ×3 (04:14→20:49)
[2018-06-12] MEDS: LEVOTHYROXINE 0.1 MG, LEVOTHYROXINE 0.025 MG PO SCH ×2 (05:57)
[2018-06-12] MEDS: PANTOPRAZOLE 40 MG TABEC PO SCH (05:57)
--- NOTE | 2018-06-12 06:30 | NUR ---
DR MARADIAGA STATED TO WEAN PT FROM O2, INFORMED HER THAT SAT-93-94% ON 3L, STATED TO BRING IT DOWN TO 2L, MEDICATED PRN FOR ABDOMINAL PAIN, MONITORED CLOSELY.
[2018-06-12 06:42] LABS: BASOPHILS % (AUTO) 0.4 % (0.0-2.0); EOSINOPHILS # (AUTO) 0.1 K/uL (0-0.4); EOSINOPHILS % (AUTO) 2.1 % (0.0-4.0); HEMATOCRIT 33.3 % (36-48); HEMOGLOBIN 10.5 g/dL (12.0-16.0); LYMPHOCYTES # (AUTO) 1.7 K/uL (2.5-16.5); LYMPHOCYTES % (AUTO) 31.3 % (20.5-51.1); MEAN CORPUSCULAR HEMOGLOBIN 30 pg (27-31); MEAN CORPUSCULAR HGB CONC 32 g/dL (33-37); MEAN CORPUSCULAR VOLUME 93.4 fL (80-94); MONOCYTES # (AUTO) 0.6 K/uL (0.8-1.0); MONOCYTES % (AUTO) 10.5 % (1.7-9.3); NEUTROPHILS % (AUTO) 55.7 % (42.2-75.2); PLATELET COUNT (AUTO) 186 K/uL (140-450); RED BLOOD CELL COUNT(AUTO) 3.56 MIL/uL (4.20-5.40); WHITE BLOOD COUNT (AUTO) 5.4 K/uL (4.8-10.8)
[2018-06-12] MEDS: BLOOD GLUCOSE MONITORING 1 DEV DEV FS SCH ×4 (06:43→20:55)
[2018-06-12 06:59] LABS: PROTHROMBIN TIME 14.5 secs (10.8-13.4)
[2018-06-12 07:02] LABS: ANION GAP 9.6 (8-16); CARBON DIOXIDE 25.7 mmol/L (21-32); CHLORIDE 108 mmol/L (98-107); CREATININE 1.6 mg/dL (0.6-1.3); GLUCOSE 147 mg/dL (74-106); POTASSIUM 4.3 mmol/L (3.5-5.1); SODIUM SERUM 139 mmol/L (136-145); UREA NITROGEN, BLOOD 40 mg/dL (7-18)
[2018-06-12 07:09] LABS: MAGNESIUM 2.2 mg/dL (1.8-2.4); PHOSPHORUS 3.8 mg/dL (2.5-4.9)
[2018-06-12] MEDS: ALBUTEROL SULFATE/IPRATROPIU 3 ML SOL IH SCH ×3 (07:13→19:15)
--- NOTE | 2018-06-12 07:18 | NUR ---
PT SLEEPING, NO SIGNS OF DISTRESS, REPORT GIVEN TO ERASMO CHAVEZ FOR CONTINUITY OF CARE.
--- NOTE | 2018-06-12 07:18 | NUR ---
ASSUMED CONTINUITY OF CARE. NO SIGNS AND SYMPTOMS OF ACUTE DISTRESS NOTED. INITIAL ASSESSMENT DONE. KEEP COMFORTABLE ON BED. EXPLAINED DIAGNOSIS, PLAN OF CARE, PAIN MANAGEMENT TEACHING, USE OF CALL LIGHT/BED/TV/BATHROOM. VERBALIZED UNDERSTANDING. FALL PRECAUTION APPLIED. CALL LIGHT WITHIN REACH.
[2018-06-12] MEDS ORDERED: HYDROcodone/APAP 10/325 MG 1 TAB TAB PO PRN (07:35)
[2018-06-12 08:00] VITALS: BP 129/62
--- NOTE | 2018-06-12 08:00 | NUR ---
Patient's Plan of Care was discussed and reviewed with PROTECTIVE SERVICES CASE WORKER: SCOTT, CONTINUE WITH CURRENT POC.
--- NOTE | 2018-06-12 08:08 | NUR ---
DR. RUBI WENT INSIDE PT. ROOM AND SPOKE TO PT. AND PT. DAUGHTER -NEIL.
[2018-06-12] MEDS ORDERED: KETOROLAC 30 MG/ML VIAL IM SCH (08:13)
[2018-06-12] MEDS: LACTOBACILLUS RHAMNOSUS GG 1 EACH CAP PO SCH (08:33)
[2018-06-12] MEDS: VENLAFAXINE 37.5 MG TAB PO SCH ×2 (08:33→20:50)
[2018-06-12] MEDS: LOSARTAN 25 MG TAB PO SCH (08:33)
[2018-06-12] MEDS: POTASSIUM CHLORIDE 10 MEQ TABER PO SCH (08:34)
[2018-06-12] MEDS: MONTELUKAST SODIUM 10 MG TAB PO SCH (08:34)
[2018-06-12] MEDS: NIFEdipine 60 MG TABER PO SCH ×2 (08:34→20:50)
[2018-06-12] MEDS: predniSONE 10 MG TAB PO SCH (08:34)
[2018-06-12] MEDS: LORATADINE 10 MG TAB PO SCH (08:35)
[2018-06-12] MEDS: CARVEDILOL 3.125 MG TAB PO SCH ×2 (08:35→20:50)
--- NOTE | 2018-06-12 08:40 | NUR ---
INFORMED DR. RUBI ABOUT TORADOL 30 MG IM SCHEDULED AT 0813, AND PT. MEDICATED WITH MORPHINE [address] RUBI ORDERED NOT TO GIVE TORADOL 30 MG IM.
[2018-06-12] MEDS: FUROSEMIDE 20 MG/2 ML VIAL IVP SCH (09:21)
[2018-06-12] MEDS: INSULIN LISPRO SLIDING SCALE 100 UNITS/ML VIAL SUBQ PRN ×3 (11:38→20:55)
[2018-06-12 12:00] VITALS: BP 114/60
--- NOTE | 2018-06-12 12:30 | NUR ---
WENT TO BATHROOM WITHOUT ASSISTANCE. TOLERATED WELL. NO C/O PAIN. NO SOB, NOTED.
--- NOTE | 2018-06-12 12:33 | NUR ---
BACK FROM BATHROOM AND SITTED ON CHAIR. NO SOB, NOTED. PT. OFF FROM O2 AT THIS TIME AND SATURATION IS 89% TO 93%. WILL MONITOR.
[2018-06-12] MEDS: NACL 0.9% 1,000 ML IV SCH (13:42)
--- NOTE | 2018-06-12 15:00 | NUR ---
O2 SAT VIA NC AT 1L/MIN WENT DOWN TO 88% FOR 30 TO 45 SECONDS AND GOES UP TO 90%. NO C/O SOB. NO ACUTE DISTRESS NOTED. HOB ELEVATED AND KEEP COMFORTABLE. PUT ON 2L/MIN VIA NC AND CONTINUE MONITORING. INFORMED CHARGE NURSE KEVIN KELSEY -AZAEL.
--- NOTE | 2018-06-12 15:10 | NUR ---
INFORMED DR. VARELA THAT PT. O2 SAT AT 2L/MIN VIA NC WENT DOWN TO 88% WHILE RESTING IN BED AND WENT UP TO 90%. ALSO INFORMED DR. VARELA THAT PT. O2 WAS PUT UP TO 2L/MIN VIA NC AND O2 SAT WENT UP TO 90% TO 91%. PER DR. VARELA, JUST PUT PT. ON 1L/MIN VIA NC LONG PT. WILL NOT C/O SOB. INFORMED CHARGE NURSE KEVIN KEMP.
[2018-06-12 16:00] VITALS: BP 125/53
--- NOTE | 2018-06-12 16:30 | NUR ---
PT. O2 SAT WAS 90% TO 91% ON 1L/MIN VIA NC. NO C/O SOB. NO ACUTE DISTRESS NOTED. WILL CONTINUE TO MONITOR.
[2018-06-12] MEDS: ATORVASTATIN 20 MG TAB PO SCH (16:47)
[2018-06-12] MEDS ORDERED: WARFARIN 5 MG TAB PO SCH (17:00)
--- NOTE | 2018-06-12 19:11 | NUR ---
REPORT GIVEN TO JIMMIE KEMP. IVF INFUSING WELL. IN STABLE CONDITION.
--- NOTE | 2018-06-12 19:15 | NUR ---
RECEIVED PT ON BED, AAOX4, DENIES BACK PAIN, STATED THE HEATING PAD HELPS, NO SOB NOTED, ON O2 AT 1L/NC, DIMINISHED GENEVIEVE SOUNDS, VITAL SIGNS STABLE, ATRIAL FIB ON TELE, IVF INFUSING WELL, PLAN OF CARE DISCUSS, SAFETY MEASURES IN PLACE, CALL LIGHT WITHIN REACH.
--- NOTE | 2018-06-12 19:24 | NUR ---
PT AND HER DAUGHTER REFUSED HHN TX , PT BS ARE BILAT CLEAR AND SHE WILL CALL IF SHE HAVE SOB . AT THIS TIME NO DISTRESS OR SOB NOTED
[2018-06-12 20:00] VITALS: BP 133/67
[2018-06-12] MEDS: DOCUSATE SODIUM 100 MG GELCAP PO PRN (20:50)
--- NOTE | 2018-06-12 22:00 | NUR ---
PT REQUESTING FOR SLEEPING PILL, AMBIEN GIVEN PRN, SIDE RAILS UP AND BED ALARM ON, MONITORED CLOSELY.
--- NOTE | 2018-06-12 23:20 | NUR ---
PT SLEEPING, EASILY AROUSABLE BUT DROWSY, VITAL SIGNS STABLE, NO RESP DISTRESS NOTED, PT WENT BACK TO SLEEP, IVF INFUSING WELL, SIDE RAILS UP AND BED ALARM ON, CONTINUE TO MONITOR CLOSELY.
[2018-06-13] VITALS: BP 104/68
[2018-06-13] MEDS: ALBUTEROL SULFATE/IPRATROPIU 3 ML SOL IH SCH ×3 (01:00→13:27)
--- NOTE | 2018-06-13 02:45 | NUR ---
PATIENT AWAKE, AMBULATED TO BR WITH STEADY GAIT AND VOIDED FREELY, BACK TO BED, SLIGHT WHEEZING BUT NO SOB NOTED, RESUMED O2 AT 1L NC, MONITORED CLOSELY.
[2018-06-13 04:00] VITALS: BP 135/70
--- NOTE | 2018-06-13 04:00 | NUR ---
PT SLEEPING, EASILY AROUSABLE, VITAL SIGNS STABLE, CONTROLLED AT FIB ON TELE, NO SOB NOTED, IVF INFUSING WELL, MONITORED CLOSELY.
[2018-06-13] MEDS: metroNIDAZOLE 500 MG/NS PREMIX 100 ML IV SCH ×2 (04:09→12:16)
[2018-06-13] MEDS: LEVOTHYROXINE 0.1 MG, LEVOTHYROXINE 0.025 MG PO SCH ×2 (05:47)
[2018-06-13] MEDS: PANTOPRAZOLE 40 MG TABEC PO SCH (05:47)
--- NOTE | 2018-06-13 06:09 | NUR ---
PT DOING AM CARE INDEPENDENTLY, NO SOB NOTED, TOLERABLE BACK PAIN AT THIS TIME, MONITORED CLOSELY.
[2018-06-13] MEDS: BLOOD GLUCOSE MONITORING 1 DEV DEV FS SCH ×2 (06:35→11:47)
--- NOTE | 2018-06-13 06:51 | NUR ---
CXR DONE, TOLERATED WELL.
--- NOTE | 2018-06-13 07:17 | NUR ---
PT REFUSED BREATHING TX AT THIS TIME. PT ASSESSED AND PT BS CLEAR BILATERALLY. PT NOT IN ANY DISTRESS. WILL CONTINUE TO MONITOR.
--- NOTE | 2018-06-13 07:20 | NUR ---
PT AWAKE, NO DISTRESS NOTED, BEDSIDE REPORT GIVEN TO RN KODY FOR CONTINUITY OF CARE.
[2018-06-13 07:38] LABS: BASOPHILS % (AUTO) 0.4 % (0.0-2.0); EOSINOPHILS # (AUTO) 0.1 K/uL (0-0.4); EOSINOPHILS % (AUTO) 2.4 % (0.0-4.0); HEMATOCRIT 34.5 % (36-48); HEMOGLOBIN 10.9 g/dL (12.0-16.0); LYMPHOCYTES # (AUTO) 1.6 K/uL (2.5-16.5); LYMPHOCYTES % (AUTO) 31.6 % (20.5-51.1); MEAN CORPUSCULAR HEMOGLOBIN 29 pg (27-31); MEAN CORPUSCULAR HGB CONC 32 g/dL (33-37); MEAN CORPUSCULAR VOLUME 93.2 fL (80-94); MONOCYTES # (AUTO) 0.6 K/uL (0.8-1.0); MONOCYTES % (AUTO) 11.7 % (1.7-9.3); NEUTROPHILS # (AUTO) 2.7 K/uL (1.8-7.7); NEUTROPHILS % (AUTO) 53.9 % (42.2-75.2); PLATELET COUNT (AUTO) 204 K/uL (140-450); WHITE BLOOD COUNT (AUTO) 5.1 K/uL (4.8-10.8)
[2018-06-13 07:44] LABS: ANION GAP 13.4 (8-16); CARBON DIOXIDE 27.1 mmol/L (21-32); CHLORIDE 106 mmol/L (98-107); CREATININE 1.5 mg/dL (0.6-1.3); GLUCOSE 145 mg/dL (74-106); POTASSIUM 4.5 mmol/L (3.5-5.1); SODIUM SERUM 142 mmol/L (136-145); UREA NITROGEN, BLOOD 34 mg/dL (7-18)
--- NOTE | 2018-06-13 07:45 | NUR ---
PATIENT WAS SLEEPING COMFORTABLY, EASILY AROUSABLE BY NAME. RESPIRATION EVEN, UNLABOR ON ROOM AIR. SKIN DRY AND WARM. IV PATENT AND INTACT. DENIED PAIN, SOB AT THIS TIME. PLAN OF CARE WAS DISCUSSED WITH PATIENT. BED AT LOW POSITION, SIDE RAILS UP. CALL LIGHT WITHIN REACH.
[2018-06-13 07:58] LABS: PROTHROMBIN TIME 19.8 secs (10.8-13.4)
[2018-06-13 08:00] VITALS: BP_SYST 144; BP_SYST 153; BP_DIAS 68; BP_DIAS 73
[2018-06-13] MEDS: predniSONE 10 MG TAB PO SCH (08:30)
[2018-06-13] MEDS: CARVEDILOL 3.125 MG TAB PO SCH (08:30)
[2018-06-13] MEDS: LACTOBACILLUS RHAMNOSUS GG 1 EACH CAP PO SCH (08:30)
[2018-06-13] MEDS: MONTELUKAST SODIUM 10 MG TAB PO SCH (08:30)
[2018-06-13] MEDS: VENLAFAXINE 37.5 MG TAB PO SCH (08:30)
[2018-06-13] MEDS ORDERED: LACT10CA PO (08:31)
[2018-06-13] MEDS ORDERED: LOSA25TA1 PO (08:31)
[2018-06-13] MEDS: LOSARTAN 25 MG TAB PO SCH (08:31)
[2018-06-13] MEDS: NIFEdipine 60 MG TABER PO SCH (08:31)
[2018-06-13] MEDS: LORATADINE 10 MG TAB PO SCH (08:31)
[2018-06-13] MEDS: POTASSIUM CHLORIDE 10 MEQ TABER PO SCH (08:31)
[2018-06-13] MEDS ORDERED: ROC2I IV (08:32)
[2018-06-13] MEDS: NACL 0.9% 1,000 ML IV SCH (08:34)
[2018-06-13] MEDS ORDERED: METR500T1 PO (08:35)
--- NOTE | 2018-06-13 08:45 | NUR ---
PATIENT WAS SITTING ON THE CHAIR, COMPLAINED OF SOB AFTER WALKING WITH PT. PATIENT WAS HELPED TO GET BACK TO BED AND WAS PLACED ON 2L NC. MD WAS MADE AWARE
[2018-06-13] MEDS ORDERED: FUROSEMIDE 20 MG TAB PO SCH (09:00)
--- NOTE | 2018-06-13 10:05 | NUR ---
Metallographic Technician Notes: I faxed to [facility] at Patient's Clinical Information and MD Order for short-term placement for IV Antibiotics and Physical Therapy.
--- NOTE | 2018-06-13 10:15 | NUR ---
PATIENT AWAKE, ALERT. RESPIRATION EVEN, UNLABOR ON 2L NC. COMPLAINED OF CONSTIPATION, PRUNE JUICE WAS GIVEN. NO DISTRESS NOTED AT THIS TIME. FAMILY AT BEDSIDE, CALL LIGHT WITHIN REACH
[2018-06-13 12:00] VITALS: BP 144/68
--- NOTE | 2018-06-13 12:00 | NUR ---
PATIENT WAS SLEEPING COMFORTABLY. RESPIRATION EVEN, UNLABOR ON 2L NC. VS IS STABLE. DENIED SOB, PAIN AT THIS TIME. DAUGHTER REQUESTED TO HAVE LAB WORK PRINTED OUT. INFORMED DAUGHTER IT IS AGAINST POLICY, AND WILL HAVE MD EXPLAIN THE RESULT FOR HER.
[2018-06-13] MEDS: DOCUSATE SODIUM 100 MG GELCAP PO PRN (12:15)
[2018-06-13] MEDS: INSULIN LISPRO SLIDING SCALE 100 UNITS/ML VIAL SUBQ PRN (12:19)
--- NOTE | 2018-06-13 13:26 | NUR ---
Clubhouse Manager Notes: I contact Ciara from admissions [facility] . Per Ciara, she received patient's Clinical Information and MD Order. She also stated that patient has been accepted at their facility to room 204B, with Accepting MD Spencer. Per Ciara she will be arranging transport for Patient at discharge. Motion Picture Director Mattie and Charge nurse Demetrius are aware.
--- NOTE | 2018-06-13 14:00 | NUR ---
PATIENT AWAKE, ALERT. RESPIRATION EVEN, UNLABOR ON 2L NC. NO DISTRESS NOTED AT THIS TIME. FAMILY AT BEDSIDE. CALL LIGHT WITHIN REACH
--- NOTE | 2018-06-13 14:10 | NUR ---
REPORT WAS GIVEN TO ARON ADDISON AT [facility]. PATIENT'S MAGO WAS AT BEDSIDE AND WAS AWARE OF THE TRANSFER.
--- NOTE | 2018-06-13 15:00 | NUR ---
DISCHARGE INSTRUCTION WAS GIVEN AND EXPLAINED TO PATIENT. PATIENT VERBALIZED UNDERSTANDING. LEADERSHIP DEVELOPMENT INSTRUCTOR AND ID BAND WAS REMOVED. IV PATENT AND INTACT FOR CONTINUED IV ANTIBIOTIC AT [facility]. ALL BELONGING WAS TAKEN WITH THE PATIENT. REPORT WAS GIVEN AT BEDSIDE TO EMT. PATIENT IS STABLE AT THIS TIME
[2018-06-13] MEDS ORDERED: WARFARIN 1 MG TAB PO SCH (17:00)
== END 2018-06-13 15:30 | DRG 871 ==
LOC: MED 09:56 → MTU 15:05
PROVIDERS: ADMIT General Practice; ATTEND General Practice
DX: A41.9 Sepsis, unspecified organism (principal); J69.0 Pneumonitis due to inhalation of food and vomit; N17.0 Acute kidney failure with tubular necrosis; E87.1 Hypo-osmolality and hyponatremia; K21.9 Gastro-esophageal reflux disease without esophagitis; E83.42 Hypomagnesemia; E78.5 Hyperlipidemia, unspecified; E11.21 Type 2 diabetes mellitus with diabetic nephropathy; E11.65 Type 2 diabetes mellitus with hyperglycemia; I11.0 Hypertensive heart disease with heart failure; R06.03 Acute respiratory distress; S29.011A Strain of muscle and tendon of front wall of thorax, initial encounter; X58.XXXA Exposure to other specified factors, initial encounter; I50.9 Heart failure, unspecified; I27.20 Pulmonary hypertension, unspecified; E03.9 Hypothyroidism, unspecified; J44.9 Chronic obstructive pulmonary disease, unspecified; G89.29 Other chronic pain; D64.9 Anemia, unspecified; Z96.653 Presence of artificial knee joint, bilateral; I48.2 Chronic atrial fibrillation; E66.9 Obesity, unspecified; Z68.33 Body mass index [BMI] 33.0-33.9, adult; Z79.899 Other long term (current) drug therapy; Z90.49 Acquired absence of other specified parts of digestive tract; Z86.711 Personal history of pulmonary embolism; Z98.49 Cataract extraction status, unspecified eye; Y93.89 Activity, other specified; Y92.89 Other specified places as the place of occurrence of the external cause; Y99.8 Other external cause status; Z71.3 Dietary counseling and surveillance
CPT/HCPCS: 36415; 36600; 71045; 71260; 76604; 76700; 80048; 80053; 80305; 81001; 82803; 82948; 83036; 83605; 83690; 83735; 83880; 84100; 84443; 84484; 85025; 85379; 85610; 85730; 87040; 87070; 87081; 87086; 87205; 87804; 93005; 93925; 93970; 94640; 96361; 96365; 96375; 99285; J0696; J1815; J1940; J2270; J3475; J3490; J7030; J7060; J7512; J7613; J7620; Q0092; Q9967

== ENCOUNTER 2018-07-20 17:43 | Emergency (ER) | payer OTHER ==
[~2018-07-20] VITALS: Ht 165.1 cm; Wt 91.4 kg
[~2018-07-20 17:43] MED LIST changes: +ACET-787 PO; -ACET-8386 PO; -AMOX-1000 PO; +ATOR20TA40 PO; +CARV3.12 PO; +FLO44 IH; -HYDR12.543 PO; +LEVO0.124 PO; +LOSA25TA1 PO; +METR500T1 PO; +MONT10TA35 PO; +PANT40EC PO; +POTA10TE30 PO; +PRED10TA5 PO; +ROC2I IV; -SYN.025 PO; +VITD1000 PO
[2018-07-20 17:52] VITALS: BP 117/75
[2018-07-20] MEDS ORDERED: MORPHINE SULFATE 4 MG/ML SYR IVP ONE (18:30)
[2018-07-20] MEDS ORDERED: ONDANSETRON 4 MG/2 ML VIAL IVP ONE (18:30)
[2018-07-20 19:04] VITALS: BP 117/75
== END 2018-07-20 19:05 | disposition left against medical advice (07) ==
LOC: MED 17:43
DX: S20.211A Contusion of right front wall of thorax, initial encounter (principal); I48.91 Unspecified atrial fibrillation; I10 Essential (primary) hypertension; E11.9 Type 2 diabetes mellitus without complications; E07.9 Disorder of thyroid, unspecified; Z79.84 Long term (current) use of oral hypoglycemic drugs; Z79.899 Other long term (current) drug therapy; V43.52XA Car driver injured in collision with other type car in traffic accident, initial encounter; Y93.89 Activity, other specified; Y92.89 Other specified places as the place of occurrence of the external cause; Y99.8 Other external cause status
CPT/HCPCS: 71045; 93005; 96374; 96375; 99284; J2270; J2405

== ENCOUNTER 2018-10-19 12:29 | Outpatient (CLI) | payer OTHER, MEDICAID ==
[2018-10-19 13:37] LABS: BASOPHILS % (AUTO) 0.7 % (0.0-2.0); EOSINOPHILS # (AUTO) 0.2 K/uL (0-0.4); EOSINOPHILS % (AUTO) 4.4 % (0.0-4.0); HEMATOCRIT 42.7 % (36-48); HEMOGLOBIN 13.4 g/dL (12.0-16.0); LYMPHOCYTES # (AUTO) 1.9 K/uL (2.5-16.5); LYMPHOCYTES % (AUTO) 37.1 % (20.5-51.1); MEAN CORPUSCULAR HEMOGLOBIN 28 pg (27-31); MEAN CORPUSCULAR HGB CONC 31 g/dL (33-37); MEAN CORPUSCULAR VOLUME 89.9 fL (80-94); MONOCYTES # (AUTO) 0.5 K/uL (0.8-1.0); NEUTROPHILS # (AUTO) 2.4 K/uL (1.8-7.7); NEUTROPHILS % (AUTO) 47.8 % (42.2-75.2); PLATELET COUNT (AUTO) 202 K/uL (140-450); RED BLOOD CELL COUNT(AUTO) 4.75 MIL/uL (4.20-5.40); RED CELL DISTRIBUTION WIDTH 16.6 % (11.6-13.7); WHITE BLOOD COUNT (AUTO) 5.1 K/uL (4.8-10.8)
[2018-10-19 14:32] LABS: ANION GAP 9.5 (8-16); CARBON DIOXIDE 30.5 mmol/L (21-32); CHLORIDE 108 mmol/L (98-107); CREATININE 1.4 mg/dL (0.6-1.3); GLUCOSE 72 mg/dL (74-106); SODIUM SERUM 143 mmol/L (136-145); UREA NITROGEN, BLOOD 38 mg/dL (7-18)
[2018-10-19 14:38] LABS: ALBUMIN 3.5 g/dL (3.4-5.0); ASPARTATE AMINOTRANSFERASE 14 U/L (15-37); TOTAL BILIRUBIN 0.4 mg/dL (0.0-1.0)
[2018-10-19 16:03] LABS: APPEARANCE,URINE CLEAR (CLEAR); BILIRUBIN,URINE NEGATIVE (NEGATIVE); BLOOD, URINE NEGATIVE (NEGATIVE); COLOR,URINE YELLOW (YELLOW); LEUKOCYTE ESTERASE ,URINE NEGATIVE (NEGATIVE); NITRITE, URINE NEGATIVE (NEGATIVE); UGLUCOSE NEGATIVE (NEGATIVE)
[2018-10-19 16:07] LABS: RBC,URINE 0-5 (RARE) /HPF (0-5); WBC,URINE 0-5 (RARE) /HPF (0-5)
== END 2018-10-19 19:55 | disposition home or self-care (01) ==
LOC: MLB 12:29
PROVIDERS: ATTEND Legal Medicine
DX: I12.9 Hypertensive chronic kidney disease with stage 1 through stage 4 chronic kidney disease, or unspecified chronic kidney disease (principal); E11.22 Type 2 diabetes mellitus with diabetic chronic kidney disease; N18.3 Chronic kidney disease, stage 3 (moderate); M19.90 Unspecified osteoarthritis, unspecified site
CPT/HCPCS: 36415; 80053; 81001; 82570; 83036; 84157; 85025

== ENCOUNTER 2018-12-15 12:23 | Outpatient (CLI) | payer OTHER, MEDICAID ==
[2018-12-15 13:04] LABS: BASOPHILS % (AUTO) 0.7 % (0.0-2.0); EOSINOPHILS # (AUTO) 0.2 K/uL (0-0.4); EOSINOPHILS % (AUTO) 3.2 % (0.0-4.0); HEMATOCRIT 40.3 % (36-48); HEMOGLOBIN 12.9 g/dL (12.0-16.0); LYMPHOCYTES # (AUTO) 1.6 K/uL (2.5-16.5); MEAN CORPUSCULAR HEMOGLOBIN 30 pg (27-31); MEAN CORPUSCULAR HGB CONC 32 g/dL (33-37); MEAN CORPUSCULAR VOLUME 93.7 fL (80-94); MONOCYTES # (AUTO) 0.6 K/uL (0.8-1.0); MONOCYTES % (AUTO) 9.6 % (1.7-9.3); NEUTROPHILS # (AUTO) 3.4 K/uL (1.8-7.7); NEUTROPHILS % (AUTO) 58.5 % (42.2-75.2); PLATELET COUNT (AUTO) 201 K/uL (140-450); RED CELL DISTRIBUTION WIDTH 15.3 % (11.6-13.7); WHITE BLOOD COUNT (AUTO) 5.9 K/uL (4.8-10.8)
[2018-12-15 13:39] LABS: ALBUMIN 3.4 g/dL (3.4-5.0); ANION GAP 11.4 (8-16); ASPARTATE AMINOTRANSFERASE 17 U/L (15-37); CARBON DIOXIDE 27.1 mmol/L (21-32); CHLORIDE 107 mmol/L (98-107); CREATININE 1.3 mg/dL (0.6-1.3); GLUCOSE 87 mg/dL (74-106); POTASSIUM 4.5 mmol/L (3.5-5.1); SODIUM SERUM 141 mmol/L (136-145); TOTAL BILIRUBIN 0.5 mg/dL (0.0-1.0); UREA NITROGEN, BLOOD 34 mg/dL (7-18)
[2018-12-15 13:55] LABS: APPEARANCE,URINE CLEAR (CLEAR); BILIRUBIN,URINE NEGATIVE (NEGATIVE); BLOOD, URINE NEGATIVE (NEGATIVE); COLOR,URINE YELLOW (YELLOW); LEUKOCYTE ESTERASE ,URINE NEGATIVE (NEGATIVE); NITRITE, URINE NEGATIVE (NEGATIVE); PH,URINE 5.5 (5.0-9.0); UGLUCOSE NEGATIVE (NEGATIVE)
== END 2018-12-15 21:01 | disposition home or self-care (01) ==
LOC: MLB 12:23
PROVIDERS: ATTEND Internal Medicine Nephrology
DX: I12.9 Hypertensive chronic kidney disease with stage 1 through stage 4 chronic kidney disease, or unspecified chronic kidney disease (principal); E11.22 Type 2 diabetes mellitus with diabetic chronic kidney disease; N18.3 Chronic kidney disease, stage 3 (moderate); M19.90 Unspecified osteoarthritis, unspecified site
CPT/HCPCS: 36415; 80053; 81001; 81003; 83036; 84157; 85025

== ENCOUNTER 2019-04-25 15:13 | Outpatient (CLI) | payer OTHER ==
[2019-04-25 15:53] LABS: BASOPHILS % (AUTO) 0.4 % (0.0-2.0); EOSINOPHILS # (AUTO) 0.1 K/uL (0-0.4); EOSINOPHILS % (AUTO) 1.6 % (0.0-4.0); HEMATOCRIT 40.9 % (36-48); HEMOGLOBIN 13.2 g/dL (12.0-16.0); LYMPHOCYTES # (AUTO) 1.5 K/uL (2.5-16.5); LYMPHOCYTES % (AUTO) 22.5 % (20.5-51.1); MEAN CORPUSCULAR HEMOGLOBIN 30 pg (27-31); MEAN CORPUSCULAR HGB CONC 32 g/dL (33-37); MEAN CORPUSCULAR VOLUME 92.3 fL (80-94); MONOCYTES # (AUTO) 0.6 K/uL (0.8-1.0); MONOCYTES % (AUTO) 8.7 % (1.7-9.3); NEUTROPHILS # (AUTO) 4.6 K/uL (1.8-7.7); NEUTROPHILS % (AUTO) 66.8 % (42.2-75.2); PLATELET COUNT (AUTO) 255 K/uL (140-450); RED BLOOD CELL COUNT(AUTO) 4.43 MIL/uL (4.20-5.40); RED CELL DISTRIBUTION WIDTH 13.8 % (11.6-13.7); WHITE BLOOD COUNT (AUTO) 6.9 K/uL (4.8-10.8)
[2019-04-25 15:56] LABS: APPEARANCE,URINE CLEAR (CLEAR); BILIRUBIN,URINE NEGATIVE (NEGATIVE); BLOOD, URINE NEGATIVE (NEGATIVE); COLOR,URINE YELLOW (YELLOW); LEUKOCYTE ESTERASE ,URINE NEGATIVE (NEGATIVE); NITRITE, URINE NEGATIVE (NEGATIVE); UGLUCOSE NEGATIVE (NEGATIVE)
[2019-04-25 16:18] LABS: ALBUMIN 3.3 g/dL (3.4-5.0); ANION GAP 11.3 (8-16); ASPARTATE AMINOTRANSFERASE 10 U/L (15-37); CARBON DIOXIDE 28.8 mmol/L (21-32); CHLORIDE 105 mmol/L (98-107); CHOL/HDL RATIO 3.9 (1-4.5); CREATININE 1.4 mg/dL (0.6-1.3); FREE T4 (FREE THYROXINE) 1.29 ng/dL (0.76-1.46); GLUCOSE 112 mg/dL (74-106); HDL CHOLESTEROL 43 mg/dL (40-60); LDL (CALC) 93 mg/dL (60-100); POTASSIUM 4.1 mmol/L (3.5-5.1); SODIUM SERUM 141 mmol/L (136-145); THYROID STIMULATING HORMONE 0.27 uIU/mL (0.34-3.74); TOTAL BILIRUBIN 0.5 mg/dL (0.0-1.0); TRIGLYCERIDES 166 mg/dL (30-150); UREA NITROGEN, BLOOD 33 mg/dL (7-18)
[2019-04-26 15:10] LABS: T4 (THYROXINE) 9.8 ug/dL (4.5 - 12.0)
== END 2019-04-25 20:18 | disposition home or self-care (01) ==
LOC: MLB 15:13
PROVIDERS: ATTEND Internal Medicine Nephrology
DX: I12.9 Hypertensive chronic kidney disease with stage 1 through stage 4 chronic kidney disease, or unspecified chronic kidney disease (principal); E11.22 Type 2 diabetes mellitus with diabetic chronic kidney disease; N18.3 Chronic kidney disease, stage 3 (moderate); M19.90 Unspecified osteoarthritis, unspecified site
CPT/HCPCS: 36415; 80053; 81003; 82306; 83036; 84157; 84436; 84439; 84443; 84479; 85025

== ENCOUNTER 2019-10-05 15:34 | Outpatient (CLI) | payer OTHER ==
[~2019-10-05 15:34] MED LIST changes: -ADA60 PO; +NIFE60TE74 PO
[2019-10-05 16:43] LABS: BASOPHILS % (AUTO) 0.6 % (0.0-2.0); EOSINOPHILS # (AUTO) 0.2 K/uL (0-0.4); EOSINOPHILS % (AUTO) 2.5 % (0.0-4.0); HEMATOCRIT 41.6 % (36-48); HEMOGLOBIN 13.1 g/dL (12.0-16.0); LYMPHOCYTES # (AUTO) 1.9 K/uL (2.5-16.5); LYMPHOCYTES % (AUTO) 21.4 % (20.5-51.1); MEAN CORPUSCULAR HEMOGLOBIN 30 pg (27-31); MEAN CORPUSCULAR HGB CONC 32 g/dL (33-37); MEAN CORPUSCULAR VOLUME 93.7 fL (80-94); MONOCYTES # (AUTO) 0.6 K/uL (0.8-1.0); MONOCYTES % (AUTO) 7.4 % (1.7-9.3); NEUTROPHILS % (AUTO) 68.1 % (42.2-75.2); PLATELET COUNT (AUTO) 222 K/uL (140-450); RED BLOOD CELL COUNT(AUTO) 4.44 MIL/uL (4.20-5.40); RED CELL DISTRIBUTION WIDTH 14.5 % (11.6-13.7); WHITE BLOOD COUNT (AUTO) 8.8 K/uL (4.8-10.8)
[2019-10-05 17:06] LABS: CHLORIDE 106 mmol/L (98-107); CREATININE 1.4 mg/dL (0.6-1.3); GLUCOSE 90 mg/dL (74-106); POTASSIUM 4.4 mmol/L (3.5-5.1); SODIUM SERUM 143 mmol/L (136-145); UREA NITROGEN, BLOOD 39 mg/dL (7-18)
[2019-10-05 17:22] LABS: ALBUMIN 3.4 g/dL (3.4-5.0); ASPARTATE AMINOTRANSFERASE 12 U/L (15-37); CHLORIDE 107 mmol/L (98-107); CHOL/HDL RATIO 3.7 (1-4.5); CREATININE 1.5 mg/dL (0.6-1.3); GLUCOSE 90 mg/dL (74-106); HDL CHOLESTEROL 47 mg/dL (40-60); LDL (CALC) 108 mg/dL (60-100); POTASSIUM 4.5 mmol/L (3.5-5.1); SODIUM SERUM 143 mmol/L (136-145); THYROID STIMULATING HORMONE 0.35 uIU/mL (0.34-3.74); TOTAL BILIRUBIN 0.4 mg/dL (0.0-1.0); TRIGLYCERIDES 95 mg/dL (30-150); UREA NITROGEN, BLOOD 38 mg/dL (7-18)
[2019-10-05 17:23] LABS: ANION GAP 12.3 (8-16); CARBON DIOXIDE 28.2 mmol/L (21-32)
[2019-10-05 17:24] LABS: ANION GAP 15.6 (8-16); CARBON DIOXIDE 25.8 mmol/L (21-32)
== END 2019-10-05 20:52 | disposition home or self-care (01) ==
LOC: MLB 15:34
DX: E11.65 Type 2 diabetes mellitus with hyperglycemia (principal); E11.22 Type 2 diabetes mellitus with diabetic chronic kidney disease; N18.3 Chronic kidney disease, stage 3 (moderate); I48.91 Unspecified atrial fibrillation
CPT/HCPCS: 36415; 80048; 80053; 81001; 82306; 83036; 84157; 84443; 85025

== ENCOUNTER 2019-11-23 17:20 | Inpatient (IN) | payer OTHER ==
[~2019-11-23] VITALS: Ht 154.9 cm; Wt 86.2 kg
[~2019-11-23 17:20] MED LIST changes: +NIFE-183 PO; -NIFE60TE74 PO
--- NOTE | 2019-11-23 17:28 | NUR ---
PT WHEELCHAIR ASSISTED TO BED 04
--- NOTE | 2019-11-23 17:30 | NUR ---
PT WHEELCHAIR-ASSISTED TO BED, SPO2 96% ON RA, RR 20 EVEN AND MODERATELY LABORED WITH AUDIBLE WHEEZING, PLACED ON 4L NC, DR JORDAN MADE AWARE.
--- NOTE | 2019-11-23 17:34 | NUR ---
79 Y/O FEMALE C/O COUGH, SOB, AND WHEEZING X 4 DAYS. STATES PRODUCTIVE COUGH, AUDIBLE WHEEZING HEARD UPON EXHALATION. RR EVEN AND DEEP. DENEIS FEVER/N/V/D. PT PLACED ON 2L NC AND PLACED ON THE MONITOR. HOB ELEVATED, BED LOCKED AND IN LOW POSITION. MEDHX: ASTHMA, HEART FAILURE, DM ALLERGIES: NKA
[2019-11-23] MEDS ORDERED: MAG SULF 2000 MG/WATER PREMIX 50 ML IV ONE ×2 (17:35→23:55)
[2019-11-23] MEDS ORDERED: methylPREDNISolone SS 125 MG/2 ML VIAL IVP ONE (17:35)
[2019-11-23] MEDS ORDERED: ALBUTEROL SULFATE/IPRATROPIU 3 ML SOL IH ONE (17:35)
[2019-11-23 17:36] VITALS: BP 175/104
--- NOTE | 2019-11-23 17:57 | NUR ---
MAG SULF RATE CHANGE TO 100ML/HR, CONFIRMED BY DR JORDAN FOR CHANGE OF RATE OF MED.
[2019-11-23 18:04] LABS: BASOPHILS % (AUTO) 0.6 % (0.0-2.0); EOSINOPHILS # (AUTO) 0.2 K/uL (0-0.4); HEMATOCRIT 42.6 % (36-48); HEMOGLOBIN 13.6 g/dL (12.0-16.0); LYMPHOCYTES # (AUTO) 1.1 K/uL (2.5-16.5); LYMPHOCYTES % (AUTO) 17.2 % (20.5-51.1); MEAN CORPUSCULAR HEMOGLOBIN 30 pg (27-31); MEAN CORPUSCULAR HGB CONC 32 g/dL (33-37); MEAN CORPUSCULAR VOLUME 93.6 fL (80-94); MONOCYTES # (AUTO) 0.6 K/uL (0.8-1.0); NEUTROPHILS # (AUTO) 4.4 K/uL (1.8-7.7); NEUTROPHILS % (AUTO) 69.2 % (42.2-75.2); PLATELET COUNT (AUTO) 202 K/uL (140-450); RED BLOOD CELL COUNT(AUTO) 4.55 MIL/uL (4.20-5.40); RED CELL DISTRIBUTION WIDTH 13.9 % (11.6-13.7); WHITE BLOOD COUNT (AUTO) 6.4 K/uL (4.8-10.8)
[2019-11-23 18:21] LABS: PROTHROMBIN TIME 11.6 secs (10.8-13.4)
[2019-11-23 18:31] LABS: ALBUMIN 3.2 g/dL (3.4-5.0); ASPARTATE AMINOTRANSFERASE 19 U/L (15-37); CARBON DIOXIDE 33.8 mmol/L (21-32); CHLORIDE 102 mmol/L (98-107); CREATININE 1.4 mg/dL (0.6-1.3); GLUCOSE 219 mg/dL (74-106); POTASSIUM 4.8 mmol/L (3.5-5.1); SODIUM SERUM 140 mmol/L (136-145); TOTAL BILIRUBIN 0.4 mg/dL (0.0-1.0); UREA NITROGEN, BLOOD 23 mg/dL (7-18)
[2019-11-23] MEDS ORDERED: ALBUTEROL SULFATE/IPRATROPIU 3 ML SOL IH PRN (18:35)
[2019-11-23] MEDS ORDERED: ONDANSETRON 4 MG/2 ML VIAL IVP PRN (18:35)
[2019-11-23] MEDS ORDERED: ACETAMINOPHEN 325 MG TAB PO PRN (18:35)
--- NOTE | 2019-11-23 18:45 | NUR ---
FLU SWAP OBTAINED AND SENT TO LAB.
--- NOTE | 2019-11-23 18:53 | NUR ---
PT AWAKE AND ALERT. HOB ELEVATED. RR EVEN AND UNLABORED. DENIES PAIN. VSS. WILL CONTINUE TO MONITOR
[2019-11-23 19:24] LABS: APPEARANCE,URINE SL CLOUDY (CLEAR); BILIRUBIN,URINE NEGATIVE (NEGATIVE); BLOOD, URINE NEGATIVE (NEGATIVE); COLOR,URINE YELLOW (YELLOW); LEUKOCYTE ESTERASE ,URINE NEGATIVE (NEGATIVE); NITRITE, URINE NEGATIVE (NEGATIVE); UGLUCOSE NEGATIVE (NEGATIVE)
[2019-11-23 20:00] VITALS: BP 176/80
--- NOTE | 2019-11-23 20:00 | NUR ---
RECEIVED BEDSIDE REPORT FROM VINICIO DELA CRUZ RN. PT IS AAOX4. RESPIRATIONS ARE EQUAL AND UNLABORED ON NC 2L O2. PT WITH AUDIBLE WHEEZING SMITH. PT STATES DRY COUGH X1WEEK. CC SOB X1 WEEK GOT WORSE TODAY. PT DENIES ANY PAIN. SKIN INTACT. PT AMBULATED FROM WHEELCHAIR TO BATHROOM WITH STEADY GAIT. DX:COPD EXACERBATION. WILL MONITOR AND MAINTAIN O2 SAT. IV ON RAC 20G SL. POC DISCUSSED WITH PT. ORIENTED PT TO ROOM,STAFF AND CALL LIGHT. VS: 176/80 HR 81 96% ON 2L O2 RR 20 97.7. MRSA SWAB OBTAINED AND SENT TO LAB. MADE AWARE OF PT'S B/P WILL F/U NEW ORDER.
--- NOTE | 2019-11-23 20:00 | NUR ---
Patient will be admitted to care of DR. LOCKETT. Admited to M/S. Will go to room 128B. Belongings list completed. Report to AZAEL MORTON.
[2019-11-23 20:03] LABS: FREE T4 (FREE THYROXINE) 1.09 ng/dL (0.76-1.46); MAGNESIUM 1.7 mg/dL (1.8-2.4); PHOSPHORUS 3.7 mg/dL (2.5-4.9); THYROID STIMULATING HORMONE 2.8 uIU/mL (0.34-3.74)
[2019-11-23] MEDS ORDERED: hydrALAZINE 20 MG/ML VIAL IVP ONE (20:25)
[2019-11-23] MEDS: NACL 0.9% 1,000 ML IV SCH (20:33)
[2019-11-23] MEDS ORDERED: DEXTROSE 50% 50 ML SYR IVP PRN (20:35)
[2019-11-23] MEDS: DOCUSATE SODIUM 100 MG GELCAP PO SCH (21:08)
[2019-11-23] MEDS: BLOOD GLUCOSE MONITORING 1 DEV DEV FS SCH (21:08)
--- NOTE | 2019-11-23 21:08 | NUR ---
ADMINISTERED HYDRALAZINE PER ORDERS FOR B/P 176/80 HR 81. BLOOD SUGAR 177 ADMINISTERED INSULIN PER SLIDING SCALE. ALL ADAM MED GIVEN PER ORDERS. ALL NEEDS MET AT THIS TIME. BEDTIME SNACK AT BEDSIDE. CALL LIGHT IS WITHIN REACH.
--- NOTE | 2019-11-23 21:15 | NUR ---
PT'S DAUGHTER NEIL CALLED AND GAVE A SHORT UPDATE ON PATIENT. PT SPEAKING TO DAUGHTER ON PHONE. NO S/S OF DISTRESS. WILL CONTINUE TO MONITOR.
[2019-11-23] MEDS: INSULIN LISPRO SLIDING SCALE 100 UNITS/ML VIAL SUBQ PRN (21:21)
[2019-11-23 22:20] VITALS: BP 158/93
--- NOTE | 2019-11-23 22:20 | NUR ---
B/P REASSESS 158/[address] DICKSON AT BEDSIDE.
[2019-11-24] VITALS: BP 160/76
--- NOTE | 2019-11-24 | NUR ---
VITAL SIGNS ARE WITHIN CLARISSA LIMITS. ALL SAFETY MEASURES ARE IN PLACE.
[2019-11-24] MEDS ORDERED: PIPERACILLIN/TAZOBACTAM 2.25 GM VIAL IV ONE ×2 (00:32→05:16)
[2019-11-24] MEDS: PIPERACILLIN/TAZOBACTAM 2.25 GM in DEXTROSE 5% 50 ML IV SCH ×4 (00:41→18:45)
--- NOTE | 2019-11-24 01:12 | NUR ---
SPOKE WITH TO CLARIFY ORDER FOR MAG RIDER X2BAGS FOR MG LVL 1.7. PT RECEIVED MG RIDER IN ER X1 PER MD OK NOT TO GIVE. WILL RECHECK LAB IN AM.
[2019-11-24] MEDS ORDERED: RIVA20TA PO (01:40)
[2019-11-24] MEDS ORDERED: VENL150C1 PO (01:40)
[2019-11-24] MEDS ORDERED: ERGO500028 PO (01:40)
[2019-11-24] MEDS ORDERED: LORA10OD44 PO (01:40)
[2019-11-24] MEDS ORDERED: FLONAS NS (01:40)
[2019-11-24] MEDS ORDERED: MONT10TA35 PO (01:40)
[2019-11-24] MEDS ORDERED: CARV3.12 PO (01:40)
[2019-11-24] MEDS ORDERED: LISI-420 PO (01:40)
[2019-11-24] MEDS ORDERED: GABA300C PO (01:40)
[2019-11-24] MEDS ORDERED: OMEP40EC14 PO (01:40)
--- NOTE | 2019-11-24 02:30 | NUR ---
MADE ROUNDS. RT AT BEDSIDE. NO S/S OF DISTRESS. CALL LIGHT IS WITHIN REACH. WILL CONTINUE TO MONITOR.
[2019-11-24 04:00] VITALS: BP 152/75
--- NOTE | 2019-11-24 04:07 | NUR ---
VITAL SIGNS ARE WITHIN NORMAL LIMITS. ALL SAFETY MEASURES ARE IN PLACE. CALL LIGHT IS WITHIN REACH. WILL CONTINUE TO MONITOR.
[2019-11-24] MEDS: methylPREDNISolone SS 125 MG/2 ML VIAL IVP SCH ×3 (04:12→21:12)
[2019-11-24] MEDS ORDERED: ALBUTEROL SULFATE/IPRATROPIU 3 ML SOL IH SCH (06:00)
[2019-11-24 06:31] LABS: BASOPHILS # (AUTO) 0.1 K/uL (0.00-0.22); HEMATOCRIT 41.8 % (36-48); HEMOGLOBIN 13.3 g/dL (12.0-16.0); LYMPHOCYTES # (AUTO) 0.5 K/uL (2.5-16.5); LYMPHOCYTES % (AUTO) 8.7 % (20.5-51.1); MEAN CORPUSCULAR HEMOGLOBIN 30 pg (27-31); MEAN CORPUSCULAR HGB CONC 32 g/dL (33-37); MEAN CORPUSCULAR VOLUME 93.7 fL (80-94); MONOCYTES # (AUTO) 0.1 K/uL (0.8-1.0); NEUTROPHILS # (AUTO) 5.2 K/uL (1.8-7.7); NEUTROPHILS % (AUTO) 88.3 % (42.2-75.2); PLATELET COUNT (AUTO) 176 K/uL (140-450); RED BLOOD CELL COUNT(AUTO) 4.46 MIL/uL (4.20-5.40); RED CELL DISTRIBUTION WIDTH 14.2 % (11.6-13.7); WHITE BLOOD COUNT (AUTO) 5.9 K/uL (4.8-10.8)
[2019-11-24] MEDS: INSULIN LISPRO SLIDING SCALE 100 UNITS/ML VIAL SUBQ PRN ×4 (06:33→21:02)
--- NOTE | 2019-11-24 06:33 | NUR ---
BLOOD SUGAR 322 ADMINISTERED INSULIN PER SLIDING SCALE. SNACK AT BEDSIDE. PT IS STABLE. WILL ENDORSE TO DAY RN.
[2019-11-24] MEDS: BLOOD GLUCOSE MONITORING 1 DEV DEV FS SCH ×4 (06:44→20:14)
[2019-11-24 06:53] LABS: ANION GAP 12.7 (8-16); CARBON DIOXIDE 30.1 mmol/L (21-32); CHLORIDE 100 mmol/L (98-107); CREATININE 1.4 mg/dL (0.6-1.3); GLUCOSE 333 mg/dL (74-106); POTASSIUM 4.8 mmol/L (3.5-5.1); SODIUM SERUM 138 mmol/L (136-145); UREA NITROGEN, BLOOD 22 mg/dL (7-18)
[2019-11-24 07:07] LABS: CHOL/HDL RATIO 3.9 (1-4.5); MAGNESIUM 1.8 mg/dL (1.8-2.4); PHOSPHORUS 3.7 mg/dL (2.5-4.9)
--- NOTE | 2019-11-24 07:20 | NUR ---
RECEIVED REPORT FROM SHREDDING MACHINE TENDER NURSE. PT IS AA&Ox4, STANDING AT THE SINK, WASHING HER FACE. RESPIRATIONS EVEN AND UNLABORED, BREATHING TO 3L N/C. NO SIGNS OF DISTRESS NOTED. L 20G AC IV, INTACT AND PATENT, RUNNING TKO, PER MD ORDERS. SKIN CLEAN AND DRY. PT IS CONTINENT AND AMBULATE WITH STANDBY ASSIST. SAFETY MEASURES IN PLACE, BED IN LOW POSITION, CALL LIGHT IN REACH. TELE MONITOR ATTACHED. NO DISTRESS NOTED. WILL CONTINUE TO MONITOR.
[2019-11-24 08:00] VITALS: BP 151/71
--- NOTE | 2019-11-24 08:18 | NUR ---
PATIENT HAS BEEN SCREENED AND CATEGORIZED MODERATE NUTRITION RISK. PATIENT WILL BE SEEN WITHIN 3-5 DAYS OF ADMISSION. 11/26/19 11/28/[address]
[2019-11-24] MEDS: CARVEDILOL 12.5 MG TAB PO SCH ×2 (08:21→17:19)
[2019-11-24] MEDS: DOCUSATE SODIUM 100 MG GELCAP PO SCH ×2 (08:22→21:11)
[2019-11-24] MEDS: FAMOTIDINE 20 MG/2 ML VIAL IV SCH (08:23)
[2019-11-24] MEDS: GABAPENTIN 300 MG CAP PO SCH ×2 (08:23→21:11)
[2019-11-24] MEDS: FUROSEMIDE 20 MG/2 ML VIAL IVP SCH ×2 (08:24→21:11)
[2019-11-24] MEDS: LORATADINE 10 MG TAB PO SCH (08:28)
[2019-11-24] MEDS: MONTELUKAST SODIUM 10 MG TAB PO SCH (08:28)
[2019-11-24] MEDS: glipiZIDE 5 MG TAB PO SCH ×2 (08:29→17:19)
[2019-11-24] MEDS: VENLAFAXINE XR 75 MG CAPER PO SCH (08:30)
[2019-11-24] MEDS: FLUTICASONE NASAL 50 MCG/ACTUATION 16 GM BTL NS SCH (08:35)
--- NOTE | 2019-11-24 08:35 | NUR ---
TIMBER GRADER REPORTED ABNORMAL BP. RECHECKED BP; 151/72. PULSE:88. ADMINISTERED MEDICATIONS PER MD ORDER. MEDICATION EDUCATION PROVIDED TO PATIENT. PT VERBALIZED UNDERSTANDING. PT TOLERATED PO MEDS WELL. DR. MEJIA IS TALKING AND ASSESSING PT AT BEDSIDE. NO SIGNS OF DISTRESS NOTED. TELE MONITOR ATTACHED. SAFETY MEASURES IN PLACE. INSTRUCTED PT TO USE CALL LIGHT IF ASSISTANCE IS NEEDED. PT IS AWARE.
[2019-11-24] MEDS ORDERED: ATORVASTATIN 20 MG TAB PO SCH (09:00)
[2019-11-24] MEDS ORDERED: NON-FORMULARY ITEM (Loratadine 10 MG) PO SCH (09:00)
[2019-11-24] MEDS ORDERED: LISINOPRIL 20 MG TAB PO SCH (09:00)
[2019-11-24] MEDS ORDERED: NON-FORMULARY ITEM (Omeprazole 40 MG) PO SCH (09:00)
--- NOTE | 2019-11-24 09:40 | NUR ---
PATIENT IS SITTING IN BED TALKING ON THE PHONE. NO DISTRESS NOTED. SAFETY MEASURES IN PLACE; BED IN LOW POSITION, CALL LIGHT WITHIN REACH. TELE MONITOR ATTACHED. WILL CONTINUE TO MONITOR.
--- NOTE | 2019-11-24 10:28 | NUR ---
HEALTH INFORMATION FAX REQUESTED FAXED TO DR JERONIMO AT [phone] AND FAX WENT THROUGH SUCCESSFULLY.
--- NOTE | 2019-11-24 11:50 | NUR ---
CHECKED PT'S BLOOD GLUCOSE LEVEL. BGL: 293, WILL ADMINISTER INSULIN COVERAGE. PT. IS SITTING UP IN BED, TALKING. NO DISTRESS NOTED. SAFETY MEASURES IN PLACE; BED IN LOW POSITION, CALL LIGHT IS WITHIN REACH. TELE MONITOR IS ATTACHED. WILL CONTINUE TO MONITOR.
[2019-11-24 12:00] VITALS: BP 156/93
--- NOTE | 2019-11-24 12:36 | NUR ---
PT IS EATING HER LUNCH AND TALKING ON HER PHONE AT THIS TIME. ADMINISTERED 6 UNITS HUMALOG VIS SUBQ FOR BG 293 AND ZOSYN ANTIBIOTIC IVPB, MEDS EDUCATION PROVIDED AND PT VERBALIZED OK. PT HAS HOME MED LEVOTHYROXINE 125 MCG AND WILL DELIVER TO PHARMACY. NO SIGNS OF DISTRESS NOTED. TELE MONITOR ATTACHED. INSTRUCTED PT TO USE THE CALL LIGHT FOR ANY ASSISTANCE AND PT AWARE.
--- NOTE | 2019-11-24 13:20 | NUR ---
PT'S SCHEDULED SOLUMEDROL WAS ADMINISTERED IVP, ORDERED. PT. IS RESTING IN BED WITH HOB AT 30 DEGREES. AROUSABLE TO VOICE. NO SIGNS OF DISTRESS NOTED.
--- NOTE | 2019-11-24 15:15 | NUR ---
PT AWAKE AND RESTING ON BED. NO SIGNS OF DISTRESS NOTED. TELE MONITOR ATTACHED. SAFETY MEASURES IN PLACE.
[2019-11-24] MEDS: ALBUTEROL SULFATE/IPRATROPIU 3 ML SOL IH SCH ×2 (16:28→19:39)
[2019-11-24] MEDS: BUDESONIDE 0.5 MG/2 ML NEBU INH SCH ×2 (16:29→19:39)
--- NOTE | 2019-11-24 17:26 | NUR ---
TOOK PT'S BLOOD PRESSURE. BP: 161/67. BP MED, AND OTHER SCHEDULED PO MEDS GIVEN, ORDERED. PT TOLERATED WELL. ASSESSED PT'S BLOOD GLUCOSE LEVEL; BGL:352; WILL PROVIDE INSULIN COVERAGE. ADJUSTED PT'S NASAL CANNULA, SPO2 96% ON NC@3LPM. PT IS NOW TALKING ON THE PHONE. NO DISTRESS NOTED. SAFETY MEASURES IN PLACE. WILL CONTINUE TO MONITOR.
[2019-11-24] MEDS: RIVAROXABAN 15 MG TAB PO SCH (17:41)
--- NOTE | 2019-11-24 17:51 | NUR ---
PT RECEIVED HER DINNER TRAY. ADMINISTERED 10 UNIT HUMALOG FOR BG 352, MED EDUCATION PROVIDED AND PT SAID OK. PT IS HAVING DINNER AT THIS TIME. NO SIGNS OF DISTRESS NOTED. TELE MONITOR ATTACHED. SAFETY MEASURES IN PLACE.
[2019-11-24 17:57] VITALS: BP 161/67
[2019-11-24] MEDS: NACL 0.9% 1,000 ML IV SCH (18:46)
--- NOTE | 2019-11-24 18:47 | NUR ---
REASSESSED BP AND RECEIVED 169/82 PULSE 84, NOTIFIED DR ROACH. PER DR ROACH, WILL MONITOR CLOSELY TONIGHT. NO ORDER RECEIVED AT THIS TIME. ADMINISTERED ZOSYN VIA IVPB, MED EDUCATION PROVIDED AND PT SAID OK. PT AWAKE AND WATCHING TV ON BED. DENIED PAIN, SOB AND DIZZINESS. NO SIGNS OF DISTRESS NOTED. TELE MONITOR ATTACHED. SAFETY MEASURES IN PLACE.
--- NOTE | 2019-11-24 19:30 | NUR ---
ENDORSED PT AT BEDSIDE TO SAND SLINGER NURSE FOR CONTINUITY OF CARE. PT IS IN STABLE CONDITION.
--- NOTE | 2019-11-24 19:30 | NUR ---
ASSUMED CARE OF PATIENT, AWAKE, ALERT AND ORIENTED. RT AT BEDSIDE FOR BREATHING TREATMENT. CALL LIGHT WITHIN REACH.
--- NOTE | 2019-11-24 19:48 | NUR ---
PT RECEIVED ON 3L NC, WITH SPO2 96%, WEANED TO 2L DUE TO HX OF COPD TO [employer] SPO2 AROUND 92-94%. TOLERATED HHN WELL, HAS UPPER AIRWAY WHEEZE AND DIMINISHED B/S UNRELIEVED BY TXS. WILL MONITOR.
--- NOTE | 2019-11-24 21:00 | NUR ---
PLAN OF CARE DISCUSSED WITH PATIENT AND FAMILY MEMBER OVER THE PHONE. VERBALIZED UNDERSTANDING WELL. CALL LIGHT WITHIN REACH. DUE MEDS GIVEN. HS SNACK GIVEN.
[2019-11-24] MEDS: ATORVASTATIN 20 MG TAB PO SCH (21:11)
[2019-11-24 21:21] VITALS: BP 145/71
--- NOTE | 2019-11-24 22:47 | NUR ---
RESIDENT MD, SPOKE WITH DAUGHTER OVER THE PHONE. PATIENT SLEEPING WELL. CALL LIGHT WITHIN REACH.
[2019-11-24] MEDS ORDERED: cefTRIAXone 1,000 MG VIAL ONE (22:52)
[2019-11-24] MEDS: INSULIN LANTUS 100 UNITS/ML 10 ML VIAL SUBQ SCH (23:06)
[2019-11-25 00:33] VITALS: BP 136/69
--- NOTE | 2019-11-25 00:34 | NUR ---
VITAL SIGNS STABLE. ASLEEP. AFEBRILE. NO COMPLAINS. CALL LIGHT WITHIN REACH.
--- NOTE | 2019-11-25 03:30 | NUR ---
FOUND PATIENT, SITTING AT BEDSIDE. CONFUSED AND DISORIENTED, VERBALIZED WENT TO BRP. ATTEMPTING TO PULL OUT HOSPITAL GOWN. REORIENTED AND PUT BACK TO BED. O2 NC 2LPM APPLIED. BED ALARM APPLIED AND REINFORCE TO CALL RN FOR BRP SINCE PATIENT UNSTEADY AND CONFUSED AT TIMES. CALL LIGHT WITHIN REACH. FREQUENT ROUNDS ONGOING FOR SAFETY.
[2019-11-25 04:50] VITALS: BP 147/68
[2019-11-25] MEDS: BLOOD GLUCOSE MONITORING 1 DEV DEV FS SCH ×4 (05:24→20:32)
[2019-11-25] MEDS: methylPREDNISolone SS 40 MG/ML VIAL IVP SCH ×3 (05:25→20:38)
--- NOTE | 2019-11-25 05:45 | NUR ---
ASLEEP. EASILY AROUSABLE. NO COMPLAINS. CALL LIGHT WITHIN REACH.
[2019-11-25] MEDS: INSULIN LISPRO SLIDING SCALE 100 UNITS/ML VIAL SUBQ PRN ×5 (06:20→21:30)
[2019-11-25] MEDS: NACL 0.9% 1,000 ML IV SCH (06:26)
[2019-11-25] MEDS: glipiZIDE 5 MG TAB PO SCH ×2 (06:27→17:22)
[2019-11-25 06:46] LABS: ANION GAP 11.6 (8-16); CHLORIDE 100 mmol/L (98-107); CREATININE 1.7 mg/dL (0.6-1.3); GLUCOSE 240 mg/dL (74-106); POTASSIUM 4.6 mmol/L (3.5-5.1); SODIUM SERUM 138 mmol/L (136-145); UREA NITROGEN, BLOOD 39 mg/dL (7-18)
[2019-11-25 06:52] LABS: BASOPHILS % (AUTO) 0.4 % (0.0-2.0); HEMATOCRIT 38.7 % (36-48); HEMOGLOBIN 12.4 g/dL (12.0-16.0); LYMPHOCYTES # (AUTO) 0.7 K/uL (2.5-16.5); LYMPHOCYTES % (AUTO) 7.1 % (20.5-51.1); MEAN CORPUSCULAR HEMOGLOBIN 30 pg (27-31); MEAN CORPUSCULAR HGB CONC 32 g/dL (33-37); MEAN CORPUSCULAR VOLUME 93.5 fL (80-94); MONOCYTES # (AUTO) 0.3 K/uL (0.8-1.0); MONOCYTES % (AUTO) 2.6 % (1.7-9.3); NEUTROPHILS # (AUTO) 8.8 K/uL (1.8-7.7); NEUTROPHILS % (AUTO) 89.9 % (42.2-75.2); PLATELET COUNT (AUTO) 177 K/uL (140-450); RED BLOOD CELL COUNT(AUTO) 4.14 MIL/uL (4.20-5.40); RED CELL DISTRIBUTION WIDTH 13.9 % (11.6-13.7); WHITE BLOOD COUNT (AUTO) 9.8 K/uL (4.8-10.8)
--- NOTE | 2019-11-25 07:22 | NUR ---
ENDORSED CARE AT BEDSIDE WITH HADLEY ZAYAS RN, PATIENT IN STABLE CONDITION.
[2019-11-25] MEDS: ALBUTEROL SULFATE/IPRATROPIU 3 ML SOL IH SCH ×3 (07:26→19:00)
[2019-11-25] MEDS: BUDESONIDE 0.5 MG/2 ML NEBU INH SCH ×2 (07:26→19:30)
--- NOTE | 2019-11-25 07:27 | NUR ---
RECEIVED BEDSIDE REPORT FROM NIGHTSHIFT NURSE. PT RESTING IN BED. ABLE TO MAKE NEEDS KNOWN. RESPIRATIONS EVEN AND UNLABORED WITH NO SOB OR RESPIRATORY DISTRESS. SKIN WARM AND DRY TO TOUCH. IV SITE IN LAC 20G IS CLEAN, DRY, AND INTACT. SAFETY MEASURES IN PLACE. WILL CONTINUE TO MONITOR
[2019-11-25 08:00] VITALS: BP 146/81
[2019-11-25] MEDS: INSULIN LANTUS 100 UNITS/ML 10 ML VIAL SUBQ SCH (09:15)
[2019-11-25] MEDS: FLUTICASONE NASAL 50 MCG/ACTUATION 16 GM BTL NS SCH (09:19)
[2019-11-25] MEDS: DOCUSATE SODIUM 100 MG GELCAP PO SCH ×2 (09:19→20:38)
[2019-11-25] MEDS: VENLAFAXINE XR 75 MG CAPER PO SCH (09:20)
[2019-11-25] MEDS: GABAPENTIN 300 MG CAP PO SCH ×2 (09:20→20:38)
[2019-11-25] MEDS: LORATADINE 10 MG TAB PO SCH (09:20)
[2019-11-25] MEDS: CARVEDILOL 12.5 MG TAB PO SCH ×2 (09:21→17:22)
[2019-11-25] MEDS: MONTELUKAST SODIUM 10 MG TAB PO SCH (09:21)
[2019-11-25] MEDS: FUROSEMIDE 20 MG/2 ML VIAL IVP SCH ×2 (09:22→20:38)
--- NOTE | 2019-11-25 09:30 | NUR ---
ADMINISTERED SCHED MED PRESCRIBED PER MD ORDER. PT TOLERATED WELL. MEDICATION EDUCATION PERFORMED. PT VERBALIZED UNDERSTANDING. SAFETY MEASURES IN PLACE. WILL CONTINUE TO MONITOR
[2019-11-25 12:00] VITALS: BP 145/76
--- NOTE | 2019-11-25 12:13 | NUR ---
BLOOD SUGAR WAS 296. INSULIN COVERAGE ADMINISTERED PRESCRIBED PER SLIDING SCALE. SAFETY MEASURES IN PLACE. WILL CONTINUE TO MONITOR
--- NOTE | 2019-11-25 13:30 | NUR ---
ADMINISTERED SCHED MED PRESCRIBED PER MD ORDER. PT TOLERATED WELL. MEDICATION EDUCATION PERFORMED. PT VERBALIZED UNDERSTANDING. SAFETY MEASURES IN PLACE. WILL CONTINUE TO MONITOR
[2019-11-25 16:00] VITALS: BP 153/92
--- NOTE | 2019-11-25 16:30 | NUR ---
PT BLOOD SUGAR IS 165. INSULIN PER SLIDING SCALE WILL BE GIVEN WITH DINNER. SAFETY MEASURES IN PLACE. WILL CONTINUE TO MONITOR
[2019-11-25] MEDS: RIVAROXABAN 15 MG TAB PO SCH (17:20)
--- NOTE | 2019-11-25 17:25 | NUR ---
ADMINISTERED SCHED MED PRESCRIBED PER MD ORDER. PT TOLERATED WELL. MEDICATION EDUCATION PERFORMED. PT VERBALIZED UNDERSTANDING. SAFETY MEASURES IN PLACE. WILL CONTINUE TO MONITOR
--- NOTE | 2019-11-25 17:29 | NUR ---
CONTINUED TO MONIITOR PT ON VENT PT PLACED BACK ON AC FOR NOCS BREATH SOUNDS PRESENT BILAT SXN PT WITH MOD AMT THICK YELLOW SECS ETT SECURE VENT PLUGGED INTO RED OUTLET AMBU BAG AT BEDSIDE
[2019-11-25] MEDS ORDERED: LEVO0.124 PO ×2 (17:33→17:51)
--- NOTE | 2019-11-25 18:30 | NUR ---
HOURLY ROUNDING. PT RESTING IN BED. ABLE TO MAKE NEEDS KNOWN. RESPIRATIONS EVEN AND UNLABORED WITH NO SOB OR RESPIRATORY DISTRESS. SKIN WARM AND DRY TO TOUCH. SAFETY MEASURES IN PLACE. WILL CONTINUE TO MONITOR
--- NOTE | 2019-11-25 19:18 | NUR ---
ENDORSED AT BEDSIDE WITH NIGHTSHIFT NURSE. PT RESTING IN BED. ABLE TO MAKE NEEDS KNOWN. RESPIRATIONS EVEN AND UNLABORED WITH NO SOB OR RESPIRATORY DISTRESS. SKIN WARM AND DRY TO TOUCH. SAFETY MEASURES IN PLACE. PT IS STABLE
--- NOTE | 2019-11-25 19:19 | NUR ---
RECEIVED BEDSIDE REPORT FROM AM SHIFT PT AMBULATING TOWARDS RESTROOM. RESPIRATIONS EVEN AND UNLABORED WITH NO SOB OR RESPIRATORY DISTRESS. SKIN WARM AND DRY TO TOUCH. IV SITE IN LAC 20G IS CLEAN, DRY, AND INTACT. SAFETY MEASURES IN PLACE. WILL CONTINUE TO MONITOR
[2019-11-25 20:00] VITALS: BP 146/78
[2019-11-25] MEDS: ATORVASTATIN 20 MG TAB PO SCH (20:39)
[2019-11-25] MEDS ORDERED: INSULIN LANTUS 100 UNITS/ML 10 ML VIAL SUBQ SCH (21:00)
--- NOTE | 2019-11-25 23:00 | NUR ---
ASSISTED PT TO BATHROOM AGAIN, AND WASHED HER HANDS IN THE SINK, NO SOB, NO COMPLAINTS OF PAIN WILL CONTINUE TO MONITOR.
[2019-11-26] VITALS: BP 157/87
--- NOTE | 2019-11-26 01:00 | NUR ---
AGAIN PT GOT UP, FIXED NASAL CANNULA AND PLACED PT BACK TO BED; W/ BED ALARM ON. WILL CONTINUE TO MONITOR.
--- NOTE | 2019-11-26 03:56 | NUR ---
PT SLEEPING AT THIS CPMFORTABLY, NO COMPLAINTS OF PAIN, NO RESPIRATORY DISTRESS, WILL CONTINUE TO MONITOR
[2019-11-26 04:00] VITALS: BP 140/77
[2019-11-26] MEDS: BLOOD GLUCOSE MONITORING 1 DEV DEV FS SCH (05:57)
[2019-11-26] MEDS: INSULIN LISPRO SLIDING SCALE 100 UNITS/ML VIAL SUBQ PRN ×2 (05:59→08:45)
[2019-11-26] MEDS ORDERED: LEVOTHYROXINE 0.075 MG TAB PO SCH (06:30)
--- NOTE | 2019-11-26 07:10 | NUR ---
PT AWAKE ALERT ORIENTED X 4, AMBULATORY W/ STANBY ASSIST. PT NO RESPIRATORY DISTRESS NOTED; NO PAIN. ENDORSED TO AM SHIFT FOR CONTINUITY OF CARE,
[2019-11-26] MEDS: BUDESONIDE 0.5 MG/2 ML NEBU INH SCH (07:29)
[2019-11-26] MEDS: ALBUTEROL SULFATE/IPRATROPIU 3 ML SOL IH SCH (07:29)
[2019-11-26 07:39] LABS: ANION GAP 9.8 (8-16); CARBON DIOXIDE 32.3 mmol/L (21-32); CHLORIDE 101 mmol/L (98-107); CREATININE 1.5 mg/dL (0.6-1.3); GLUCOSE 349 mg/dL (74-106); POTASSIUM 4.1 mmol/L (3.5-5.1); SODIUM SERUM 139 mmol/L (136-145); UREA NITROGEN, BLOOD 42 mg/dL (7-18)
[2019-11-26 07:40] LABS: MAGNESIUM 1.5 mg/dL (1.8-2.4); PHOSPHORUS 4.7 mg/dL (2.5-4.9)
[2019-11-26 07:45] LABS: BASOPHILS % (AUTO) 0.4 % (0.0-2.0); HEMATOCRIT 40.2 % (36-48); HEMOGLOBIN 12.7 g/dL (12.0-16.0); LYMPHOCYTES # (AUTO) 0.8 K/uL (2.5-16.5); LYMPHOCYTES % (AUTO) 9.4 % (20.5-51.1); MEAN CORPUSCULAR HEMOGLOBIN 30 pg (27-31); MEAN CORPUSCULAR HGB CONC 32 g/dL (33-37); MEAN CORPUSCULAR VOLUME 94.2 fL (80-94); MONOCYTES # (AUTO) 0.4 K/uL (0.8-1.0); NEUTROPHILS % (AUTO) 85.2 % (42.2-75.2); PLATELET COUNT (AUTO) 180 K/uL (140-450); RED BLOOD CELL COUNT(AUTO) 4.26 MIL/uL (4.20-5.40); RED CELL DISTRIBUTION WIDTH 14.1 % (11.6-13.7); WHITE BLOOD COUNT (AUTO) 8.2 K/uL (4.8-10.8)
[2019-11-26 08:00] VITALS: BP 157/76
[2019-11-26] MEDS ORDERED: METH4TAB1 PO ×2 (08:11→08:24)
[2019-11-26] MEDS ORDERED: AMOX-999 PO ×2 (08:20→16:25)
[2019-11-26] MEDS ORDERED: ASCO1CAP75 PO (08:21)
[2019-11-26] MEDS: INSULIN LANTUS 100 UNITS/ML 10 ML VIAL SUBQ SCH (08:45)
[2019-11-26] MEDS: FUROSEMIDE 20 MG/2 ML VIAL IVP SCH (08:51)
[2019-11-26] MEDS: VENLAFAXINE XR 75 MG CAPER PO SCH (08:55)
[2019-11-26] MEDS: FLUTICASONE NASAL 50 MCG/ACTUATION 16 GM BTL NS SCH (08:56)
[2019-11-26] MEDS: glipiZIDE 5 MG TAB PO SCH (08:57)
[2019-11-26] MEDS: MONTELUKAST SODIUM 10 MG TAB PO SCH (08:58)
[2019-11-26] MEDS: DOCUSATE SODIUM 100 MG GELCAP PO SCH (08:58)
[2019-11-26] MEDS: LORATADINE 10 MG TAB PO SCH (08:59)
[2019-11-26] MEDS: GABAPENTIN 300 MG CAP PO SCH (08:59)
[2019-11-26] MEDS: CARVEDILOL 12.5 MG TAB PO SCH (08:59)
[2019-11-26] MEDS: FAMOTIDINE 20 MG/2 ML VIAL IV SCH (09:00)
[2019-11-26] MEDS ORDERED: methylPREDNISolone SS 40 MG/ML VIAL IVP SCH (09:00)
--- NOTE | 2019-11-26 09:05 | NUR ---
ADMINISTERED SCHED MED PRESCRIBED PER MD ORDER. PT TOLERATED WELL. MEDICATION EDUCATION PERFORMED. PT VERBALIZED UNDERSTANDING. SAFETY MEASURES IN PLACE. WILL CONTINUE TO MONITOR.
--- NOTE | 2019-11-26 09:15 | NUR ---
PATIENT IS AWARE OF DISCHARGE. PT WOULD LIKE TO GO HOME BEFORE LUNCH. SAFETY MEASURES IN PLACE. WILL CONTINUE TO MONITOR
[2019-11-26] MEDS ORDERED: MAGNESIUM OXIDE 400 MG TAB PO SCH (10:00)
[2019-11-26 10:10] VITALS: BP 157/76
--- NOTE | 2019-11-26 10:54 | NUR ---
WENT OVER DISCHARGE PAPERWORK WITH PT. PT SIGNED APPROPRIATE DOCUMENTS. INSTRUCTED PT TO VISIT FOR ANY SIGNS OF DISTRESS. PT VERBALIZED UNDERSTANDING. GAVE HOME MEDS FROM THE PHARMACY BACK TO THE PATIENT. INTACT IV CANNULA AND ID BAND REMOVED. PT REMOVED FROM TELE MONITOR. PATIENT GATHERED ALL OF HER BELONGINGS AND CHANGED INTO HER OWN CLOTHES. PATIENT IS UP TO DATE ON VACCINES. PT WHEELED OUT TO PRIVATE VEHICLE TO GO HOME. PT IS STABLE
== END 2019-11-26 10:54 | disposition home or self-care (01) | DRG 682 ==
LOC: MED 17:20 → MMU 18:33
PROVIDERS: ADMIT General Practice; ATTEND General Practice
DX: N17.0 Acute kidney failure with tubular necrosis (principal); J96.01 Acute respiratory failure with hypoxia; I50.43 Acute on chronic combined systolic (congestive) and diastolic (congestive) heart failure; J44.1 Chronic obstructive pulmonary disease with (acute) exacerbation; J45.901 Unspecified asthma with (acute) exacerbation; I13.0 Hypertensive heart and chronic kidney disease with heart failure and stage 1 through stage 4 chronic kidney disease, or unspecified chronic kidney disease; Z68.35 Body mass index [BMI] 35.0-35.9, adult; D72.810 Lymphocytopenia; E11.22 Type 2 diabetes mellitus with diabetic chronic kidney disease; E66.01 Morbid (severe) obesity due to excess calories; I25.10 Atherosclerotic heart disease of native coronary artery without angina pectoris; I48.91 Unspecified atrial fibrillation; K21.9 Gastro-esophageal reflux disease without esophagitis; N18.9 Chronic kidney disease, unspecified; E11.65 Type 2 diabetes mellitus with hyperglycemia; E11.21 Type 2 diabetes mellitus with diabetic nephropathy; E11.40 Type 2 diabetes mellitus with diabetic neuropathy, unspecified; E83.42 Hypomagnesemia; F32.9 Major depressive disorder, single episode, unspecified; Z96.653 Presence of artificial knee joint, bilateral; J30.9 Allergic rhinitis, unspecified; Z79.84 Long term (current) use of oral hypoglycemic drugs; Z71.3 Dietary counseling and surveillance; Z79.01 Long term (current) use of anticoagulants; Z79.4 Long term (current) use of insulin; Z79.899 Other long term (current) drug therapy; Z90.49 Acquired absence of other specified parts of digestive tract
CPT/HCPCS: 36415; 36600; 71045; 71250; 80048; 80053; 81003; 82150; 82803; 82948; 83036; 83605; 83690; 83735; 83880; 84100; 84439; 84443; 84484; 85025; 85610; 85730; 87040; 87081; 87086; 87804; 93005; 94640; 96365; 96375; 99285; J0360; J0696; J1644; J1815; J1940; J2543; J2920; J2930; J3475; J3490; J7030; J7060; J7626; Q0092

== ENCOUNTER 2020-11-13 17:49 | Emergency (ER) | payer OTHER ==
[~2020-11-13] VITALS: Ht 170.2 cm; Wt 82.1 kg
[~2020-11-13 17:49] MED LIST changes: -ACET-787 PO; +AMOX-999 PO; +ASCO1CAP75 PO; +ERGO500028 PO; -FLO44 IH; +FLONAS NS; +GABA300C PO; +GLIP5TAB14 PO; -GLIP5TAB4 PO; -LACT10CA PO; +LISI-487 PO; +LORA10OD44 PO; -LORA10TA19 PO; -LOSA25TA1 PO; +METH4TAB1 PO; -METR500T1 PO; -NIFE-183 PO; +OMEP40EC14 PO; -PANT40EC PO; -POTA10TE30 PO; +RIVA20TA PO; -ROC2I IV; +VENL150C1 PO; -VENL75CE5 PO; -VITD1000 PO; -WARF4TAB PO
[2020-11-13 17:53] VITALS: BP 169/75
--- NOTE | 2020-11-13 18:02 | NUR ---
DR ALFORD AT BEDSIDE EVALUATING PT
--- NOTE | 2020-11-13 18:05 | NUR ---
80 Y/O FEMALE C/O ABD PAIN X YESTERDAY. PAIN IS LLQ AND EPIGASTRIC REGION. PT RATES PAIN 8/10 THAT IS SHARP/CRAMPING, INTERMITTENT, AND NONRADIATING. PT STATES SHE IS SOB AND IS NAUSEOUS. PT DENIES V/MCNEAL/CP. PT STATED SHE IS CONSTIPATED WITH LBM YESTERDAY. HYPERACTIVE BOWEL SOUNDS X4 QUAD. ABD IS ROUND, SOFT, AND TENDER ON PALPATION. PT IS AMBULATORY WITH ASSISTIVE DEVICE- CANE. PT HAS BRUISES ON ABD FROM INSULIN INJECTIONS AND ON ARMS FROM BLOOD DRAWS. PT STATES SHE HAS BEEN TRYING NOT TO USE INHALER. PT STATES SOB, LUNG SOUNDS CLEAR BILATERAL THROUGHOUT. NO EDEMA NOTED. PT IS A/O X4 WITH EVEN AND UNLABORED RESPIRATIONS. BED IN LOWEST POSITION, BRAKES LOCKED, X1 SIDERAIL UP. PMH: CHF, A FIB, DM, HTN NKA
--- NOTE | 2020-11-13 18:14 | NUR ---
PT TAKEN TO CT VIA W/C.
--- NOTE | 2020-11-13 18:30 | NUR ---
PT BACK FROM CT- AMBULATED TO RESTROOM WITH CANE FOR URINE SAMPLE
--- NOTE | 2020-11-13 18:45 | NUR ---
LAB AT BEDSIDE. STEVE MENDIETA SAMPLE GIVEN TO TECH
--- NOTE | 2020-11-13 18:46 | NUR ---
Note italoone in EDM - 11/13/20 at 1918 by [email or web address] Patient discharged with v/s stable. Written and verbal after care instructions given and explained. Patient alert, oriented and verbalized understanding of instructions. Ambulatory with steady gait. All questions addressed prior to discharge. ID band removed. Patient advised to follow up with PMD. Rx of ibuprofen and penicillin V potassium given. Patient educated on indication of medication including possible reaction and side effects. Opportunity to ask questions provided and answered.
[2020-11-13] MEDS ORDERED: FUROSEMIDE 40 MG/4 ML VIAL IVP ONE (18:55)
[2020-11-13] MEDS ORDERED: ALUMINUM HYD/MAG/SIMETHICONE 30 ML UDC PO ONE (18:55)
[2020-11-13] MEDS ORDERED: NITROGLYCERIN 2% 1 GM PKT TP ONE (18:55)
--- NOTE | 2020-11-13 18:55 | NUR ---
PT SPO2 92-94% ON RA, DR ALFORD MADE AWARE. PLACED PT ON 2L N/C WITH SPO2 98%
[2020-11-13 18:57] LABS: BASOPHILS # (AUTO) 0.1 K/uL (0.00-0.22); BASOPHILS % (AUTO) 1.3 % (0.0-2.0); EOSINOPHILS # (AUTO) 0.3 K/uL (0-0.4); EOSINOPHILS % (AUTO) 5.9 % (0.0-4.0); LYMPHOCYTES # (AUTO) 1.2 K/uL (2.5-16.5); LYMPHOCYTES % (AUTO) 21.3 % (20.5-51.1); MEAN CORPUSCULAR HEMOGLOBIN 31 pg (27-31); MEAN CORPUSCULAR HGB CONC 32 g/dL (33-37); MEAN CORPUSCULAR VOLUME 94.9 fL (80-94); MONOCYTES # (AUTO) 0.6 K/uL (0.8-1.0); NEUTROPHILS # (AUTO) 3.5 K/uL (1.8-7.7); NEUTROPHILS % (AUTO) 60.5 % (42.2-75.2); PLATELET COUNT (AUTO) 217 K/uL (140-450); RED BLOOD CELL COUNT(AUTO) 4.21 MIL/uL (4.20-5.40); RED CELL DISTRIBUTION WIDTH 14.8 % (11.6-13.7); WHITE BLOOD COUNT (AUTO) 5.8 K/uL (4.8-10.8)
[2020-11-13 19:14] LABS: ALBUMIN 2.6 g/dL (3.4-5.0); ANION GAP 10.1 (8-16); ASPARTATE AMINOTRANSFERASE 20 U/L (15-37); CARBON DIOXIDE 32.8 mmol/L (21-32); CHLORIDE 102 mmol/L (98-107); CREATININE 1.4 mg/dL (0.6-1.3); GLUCOSE 192 mg/dL (74-106); POTASSIUM 3.9 mmol/L (3.5-5.1); SODIUM SERUM 141 mmol/L (136-145); TOTAL BILIRUBIN 0.3 mg/dL (0.0-1.0); UREA NITROGEN, BLOOD 19 mg/dL (7-18)
--- NOTE | 2020-11-13 19:18 | NUR ---
REPORT GIVEN TO BARNEY ADDISON. TRANSFER OF CARE AT THIS TIME
--- NOTE | 2020-11-13 19:26 | NUR ---
Pt received resting in bed, A/Ox4, breathing even and unlabored. VSS at this time.
[2020-11-13] MEDS ORDERED: DEXAMETHASONE 4 MG/ML VIAL IVP ONE (19:50)
--- NOTE | 2020-11-13 20:27 | NUR ---
Dr. Greco speaking with patient family
[2020-11-13] MEDS ORDERED: ALBUTEROL HFA MDI 90 MCG/ACTUATION 8 GM INH ONE (20:35)
--- NOTE | 2020-11-13 21:16 | NUR ---
Respiratory Therapist at bedside for respiratory intervention.
--- NOTE | 2020-11-13 21:20 | NUR ---
Pt daughter called multiple times, stating "My mom will not be admitted to the hospital. She got the Covid vaccine so she can't get Covid now. I take care of her at home. She will be fine." RN educated daughter multiple times that pt is A/Ox4 and can make her own medical decisions and that staff will go by what the pt decides. Pt stating at this time that she wants to stay in hospital.
[2020-11-13] MEDS ORDERED: PRON INH (21:23)
[2020-11-13] MEDS ORDERED: APIX5TAB PO (21:23)
[2020-11-13] MEDS ORDERED: LISI-487 PO (21:23)
[2020-11-13] MEDS ORDERED: INSU100S45 SUBQ (21:24)
--- NOTE | 2020-11-13 22:21 | NUR ---
Pt now stating she wants to leave hospital AMA. Advised on potential risks of leaving AMA. States she does not want to stay in hospital. aware.
[2020-11-13] MEDS ORDERED: ALBU0.0912 INH ×2 (22:35→22:36)
[2020-11-13] MEDS ORDERED: PRED20TA5 PO (22:35)
[2020-11-13] MEDS ORDERED: PRED20TA6 PO (22:38)
--- NOTE | 2020-11-13 23:00 | NUR ---
Patient does not wish to proceed with medical care recommended by Dr. Greco. Patient given information related to possible complications, up to and including , which could occur as a result of leaving hospital at this time. Patient verbalizes understanding of risks involved leaving against medical advice. Patient has signed AMA form. Given Rx for Albuterol and Prednisone, advised to f/u with PCP. Wristband and IV removed and pressure applied.
[2020-11-13 23:01] VITALS: BP 178/89
== END 2020-11-13 23:00 | disposition left against medical advice (07) ==
LOC: MED 17:49
DX: U07.1 COVID-19 (principal); R10.9 Unspecified abdominal pain; I11.0 Hypertensive heart disease with heart failure; E11.9 Type 2 diabetes mellitus without complications; E07.9 Disorder of thyroid, unspecified; Z87.448 Personal history of other diseases of urinary system; Z79.899 Other long term (current) drug therapy
CPT/HCPCS: 36415; 71045; 74176; 80053; 81002; 83690; 83880; 84484; 85025; 86140; 87426; 93005; 94664; 96374; 96375; 99285; J1100; J1940; J3535; U0003

== ENCOUNTER 2020-11-29 10:19 | Outpatient (CLI) | payer OTHER ==
[~2020-11-29 10:19] MED LIST changes: +ALBU0.0912 INH; -AMOX-999 PO; +APIX5TAB PO; -ASCO1CAP75 PO; -GABA300C PO; +INSU100S45 SUBQ; -METH4TAB1 PO; -MONT10TA35 PO; -PRED10TA5 PO; +PRED20TA5 PO; +PRED20TA6 PO; +PRON INH; -RIVA20TA PO
[2020-11-29 10:54] LABS: BASOPHILS # (AUTO) 0.1 K/uL (0.00-0.22); BASOPHILS % (AUTO) 0.9 % (0.0-2.0); EOSINOPHILS # (AUTO) 0.3 K/uL (0-0.4); EOSINOPHILS % (AUTO) 4.1 % (0.0-4.0); HEMATOCRIT 36.9 % (36-48); HEMOGLOBIN 12.1 g/dL (12.0-16.0); LYMPHOCYTES # (AUTO) 1.8 K/uL (2.5-16.5); LYMPHOCYTES % (AUTO) 25.9 % (20.5-51.1); MEAN CORPUSCULAR HEMOGLOBIN 32 pg (27-31); MEAN CORPUSCULAR HGB CONC 33 g/dL (33-37); MEAN CORPUSCULAR VOLUME 97.2 fL (80-94); MONOCYTES # (AUTO) 0.6 K/uL (0.8-1.0); MONOCYTES % (AUTO) 9.4 % (1.7-9.3); NEUTROPHILS # (AUTO) 4.1 K/uL (1.8-7.7); NEUTROPHILS % (AUTO) 59.7 % (42.2-75.2); PLATELET COUNT (AUTO) 341 K/uL (140-450); RED BLOOD CELL COUNT(AUTO) 3.79 MIL/uL (4.20-5.40); RED CELL DISTRIBUTION WIDTH 14.4 % (11.6-13.7); WHITE BLOOD COUNT (AUTO) 6.8 K/uL (4.8-10.8)
[2020-11-29 11:16] LABS: ANION GAP 10.4 (8-16); ASPARTATE AMINOTRANSFERASE 16 U/L (15-37); CARBON DIOXIDE 29.6 mmol/L (21-32); CHLORIDE 95 mmol/L (98-107); CHOL/HDL RATIO 5.7 (1-4.5); GLUCOSE 132 mg/dL (74-106); HDL CHOLESTEROL 48 mg/dL (40-60); LDL (CALC) 178 mg/dL (60-100); SODIUM SERUM 131 mmol/L (136-145); TOTAL BILIRUBIN 0.5 mg/dL (0.0-1.0); TRIGLYCERIDES 248 mg/dL (30-150); UREA NITROGEN, BLOOD 35 mg/dL (7-18)
[2020-11-29 11:48] LABS: APPEARANCE,URINE CLEAR (CLEAR); BILIRUBIN,URINE NEGATIVE (NEGATIVE); BLOOD, URINE TRACE-I (NEGATIVE); COLOR,URINE YELLOW (YELLOW); LEUKOCYTE ESTERASE ,URINE NEGATIVE (NEGATIVE); NITRITE, URINE NEGATIVE (NEGATIVE); UGLUCOSE NEGATIVE (NEGATIVE)
[2020-11-29 12:13] LABS: RBC,URINE 0-5 /HPF (0-5); WBC,URINE 0-5 /HPF (0-5)
[2020-11-29 12:14] LABS: FINE GRANULAR CASTS,URINE 0-10 /LPF (None Seen)
[2020-11-29 13:55] LABS: URIC ACID 9.5 mg/dL (2.6-7.2)
== END 2020-11-29 20:20 | disposition home or self-care (01) ==
LOC: MLB 10:19
PROVIDERS: ATTEND Internal Medicine Nephrology
DX: E11.9 Type 2 diabetes mellitus without complications (principal); I12.9 Hypertensive chronic kidney disease with stage 1 through stage 4 chronic kidney disease, or unspecified chronic kidney disease; N18.30 Chronic kidney disease, stage 3 unspecified; M19.90 Unspecified osteoarthritis, unspecified site
CPT/HCPCS: 36415; 80053; 81001; 82306; 82570; 83036; 84156; 84550; 85025

== ENCOUNTER 2021-01-23 13:30 | Inpatient (IN) | payer OTHER, SELFPAY ==
[~2021-01-23] VITALS: Ht 162.6 cm; Wt 90.7 kg
[2021-01-23 13:30] VITALS: BP 98/39
[2021-01-23] MEDS ORDERED: FUROSEMIDE 40 MG/4 ML VIAL IVP ONE ×2 (13:35→13:38)
[2021-01-23] MEDS ORDERED: ASPIRIN 325 MG TAB PO ONE (13:35)
[2021-01-23] MEDS ORDERED: NITROGLYCERIN 0.4 MG TAB SL ONE (13:35)
[2021-01-23] MEDS ORDERED: ALBUTEROL SULFATE/IPRATROPIU 3 ML SOL IH ONE ×2 (13:50→15:10)
[2021-01-23 14:03] LABS: BASOPHILS # (AUTO) 0.1 K/uL (0.00-0.22); EOSINOPHILS # (AUTO) 0.4 K/uL (0-0.4); EOSINOPHILS % (AUTO) 5.7 % (0.0-4.0); HEMATOCRIT 40.6 % (36-48); LYMPHOCYTES # (AUTO) 1.5 K/uL (2.5-16.5); LYMPHOCYTES % (AUTO) 20.9 % (20.5-51.1); MEAN CORPUSCULAR HEMOGLOBIN 30 pg (27-31); MEAN CORPUSCULAR HGB CONC 32 g/dL (33-37); MEAN CORPUSCULAR VOLUME 94.2 fL (80-94); MONOCYTES # (AUTO) 0.6 K/uL (0.8-1.0); MONOCYTES % (AUTO) 7.9 % (1.7-9.3); NEUTROPHILS # (AUTO) 4.6 K/uL (1.8-7.7); NEUTROPHILS % (AUTO) 64.5 % (42.2-75.2); PLATELET COUNT (AUTO) 261 K/uL (140-450); RED CELL DISTRIBUTION WIDTH 14.1 % (11.6-13.7); WHITE BLOOD COUNT (AUTO) 7.1 K/uL (4.8-10.8)
[2021-01-23] MEDS ORDERED: methylPREDNISolone SS 125 MG/2 ML VIAL IVP ONE (14:05)
[2021-01-23 14:26] LABS: PROTHROMBIN TIME 10.2 secs (10.8-13.4)
[2021-01-23 15:09] VITALS: BP 171/83
[2021-01-23] MEDS ORDERED: cefTRIAXone 2,000 MG in DEXTROSE 5% 100 ML IV ONE (15:10)
[2021-01-23] MEDS ORDERED: MORPHINE SULFATE 4 MG/ML SYR IVP ONE (15:35)
[2021-01-23] MEDS ORDERED: ONDANSETRON 4 MG/2 ML VIAL IVP ONE (15:35)
[2021-01-23] MEDS ORDERED: cefTRIAXone 2,000 MG VIAL ONE (15:44)
[2021-01-23 15:45] LABS: ALBUMIN 2.7 g/dL (3.4-5.0); ANION GAP 11.8 (8-16); ASPARTATE AMINOTRANSFERASE 25 U/L (15-37); CARBON DIOXIDE 29.6 mmol/L (21-32); CHLORIDE 105 mmol/L (98-107); CREATININE 1.7 mg/dL (0.6-1.3); GLUCOSE 235 mg/dL (74-106); POTASSIUM 4.4 mmol/L (3.5-5.1); SODIUM SERUM 142 mmol/L (136-145); TOTAL BILIRUBIN 0.3 mg/dL (0.0-1.0); UREA NITROGEN, BLOOD 26 mg/dL (7-18)
[2021-01-23] MEDS ORDERED: HYDROcodone/APAP 7.5/325 MG 1 TAB PO PRN (16:45)
[2021-01-23] MEDS ORDERED: ONDANSETRON 4 MG/2 ML VIAL IM/IVP PRN (16:45)
[2021-01-23] MEDS ORDERED: ACETAMINOPHEN 325 MG TAB PO PRN (16:45)
[2021-01-23] MEDS ORDERED: DOCUSATE SODIUM 100 MG GELCAP PO PRN (16:45)
[2021-01-23] MEDS ORDERED: ZOLPIDEM 5 MG TAB PO PRN (16:45)
[2021-01-23] MEDS ORDERED: guaiFENesin DM 200/20 MG-10 ML 10 ML UDC PO PRN (16:45)
[2021-01-23] MEDS ORDERED: POTASSIUM CHLORIDE 10 MEQ TABER PO PRN (16:45)
[2021-01-23] MEDS ORDERED: PIPERACILLIN/TAZOBACTAM 3.375 GM in DEXTROSE 5% 50 ML IV SCH ×2 (17:00→21:00)
[2021-01-23 17:30] VITALS: BP 172/88
[2021-01-23] MEDS: PIPERACILLIN/TAZOBACTAM 2.25 GM in DEXTROSE 5% 50 ML IV SCH ×2 (18:39→23:05)
[2021-01-23] MEDS: hydrALAZINE 20 MG/ML VIAL IVP PRN (18:40)
[2021-01-23] MEDS ORDERED: CARV25TA PO (18:54)
[2021-01-23] MEDS: ALBUTEROL SULFATE/IPRATROPIU 3 ML SOL IH SCH (19:51)
[2021-01-23] MEDS ORDERED: DEXTROSE 50% 50 ML SYR IVP PRN (19:55)
[2021-01-23 20:00] VITALS: BP 140/68
[2021-01-23] MEDS: carvediloL 12.5 MG TAB PO SCH (20:05)
[2021-01-23] MEDS: BLOOD GLUCOSE MONITORING 1 DEV DEV FS SCH (20:05)
[2021-01-23] MEDS: glipiZIDE 5 MG TAB PO SCH (20:05)
[2021-01-23] MEDS: methylPREDNISolone SS 40 MG/ML VIAL IVP SCH (20:06)
[2021-01-23] MEDS: APIXABAN 2.5 MG TAB PO SCH (20:07)
[2021-01-23] MEDS: INSULIN LISPRO SLIDING SCALE 100 UNITS/ML VIAL SUBQ PRN (20:15)
[2021-01-23 20:27] LABS: CHOL/HDL RATIO 4.4 (1-4.5); FREE T4 (FREE THYROXINE) 1.1 ng/dL (0.76-1.46); MAGNESIUM 1.8 mg/dL (1.8-2.4); PHOSPHORUS 4.4 mg/dL (2.5-4.9); THYROID STIMULATING HORMONE 24.08 uIU/mL (0.34-3.74)
[2021-01-23] MEDS ORDERED: carvediloL 3.125 MG TAB PO SCH (21:00)
[2021-01-23] MEDS ORDERED: FUROSEMIDE 20 MG/2 ML VIAL IVP SCH (21:00)
[2021-01-23 23:03] LABS: APPEARANCE,URINE CLEAR (CLEAR); BILIRUBIN,URINE NEGATIVE (NEGATIVE); BLOOD, URINE NEGATIVE (NEGATIVE); COLOR,URINE YELLOW (YELLOW); LEUKOCYTE ESTERASE ,URINE NEGATIVE (NEGATIVE); NITRITE, URINE NEGATIVE (NEGATIVE); UGLUCOSE 1+ (NEGATIVE)
[2021-01-23 23:12] LABS: BARBITURATE, URINE NEGATIVE ng/ml (NEG <=200); BENZODIAZEPINE, URINE NEGATIVE ng/mL (NEG <=200); CANNABINOID, URINE NEGATIVE ng/mL (NEG <=50); COCAINE, URINE NEGATIVE ng/mL (NEG <=300); OPIATE, URINE POSITIVE ng/mL (NEG <=2000); PHENCYCLIDINE SCREEN,URINE NEGATIVE ng/mL (NEG <=25)
[2021-01-24] VITALS: BP 131/66
[2021-01-24 04:00] VITALS: BP 195/80
[2021-01-24] MEDS: hydrALAZINE 20 MG/ML VIAL IVP PRN (04:34)
[2021-01-24] MEDS: methylPREDNISolone SS 40 MG/ML VIAL IVP SCH ×3 (04:34→20:16)
[2021-01-24 05:15] LABS: BASOPHILS % (AUTO) 0.6 % (0.0-2.0); EOSINOPHILS % (AUTO) 0.1 % (0.0-4.0); HEMATOCRIT 39.9 % (36-48); LYMPHOCYTES # (AUTO) 0.7 K/uL (2.5-16.5); LYMPHOCYTES % (AUTO) 10.1 % (20.5-51.1); MEAN CORPUSCULAR HEMOGLOBIN 31 pg (27-31); MEAN CORPUSCULAR HGB CONC 33 g/dL (33-37); MEAN CORPUSCULAR VOLUME 94.4 fL (80-94); MONOCYTES # (AUTO) 0.1 K/uL (0.8-1.0); MONOCYTES % (AUTO) 1.4 % (1.7-9.3); NEUTROPHILS # (AUTO) 6.1 K/uL (1.8-7.7); NEUTROPHILS % (AUTO) 87.8 % (42.2-75.2); PLATELET COUNT (AUTO) 217 K/uL (140-450); RED BLOOD CELL COUNT(AUTO) 4.22 MIL/uL (4.20-5.40); RED CELL DISTRIBUTION WIDTH 13.8 % (11.6-13.7); WHITE BLOOD COUNT (AUTO) 6.9 K/uL (4.8-10.8)
[2021-01-24] MEDS: PIPERACILLIN/TAZOBACTAM 2.25 GM in DEXTROSE 5% 50 ML IV SCH ×4 (05:17→23:26)
[2021-01-24] MEDS: INSULIN LISPRO SLIDING SCALE 100 UNITS/ML VIAL SUBQ PRN ×4 (06:04→19:53)
[2021-01-24 06:08] LABS: T4 (THYROXINE) 7.4 ug/dL (4.5-12.0)
[2021-01-24 06:11] LABS: ANION GAP 13.4 (8-16); CARBON DIOXIDE 30.1 mmol/L (21-32); CHLORIDE 104 mmol/L (98-107); CREATININE 2.1 mg/dL (0.6-1.3); GLUCOSE 260 mg/dL (74-106); SODIUM SERUM 141 mmol/L (136-145); UREA NITROGEN, BLOOD 33 mg/dL (7-18)
[2021-01-24 06:16] LABS: POTASSIUM 6.5 mmol/L (3.5-5.1)
[2021-01-24] MEDS ORDERED: CALCIUM GLUCONATE 10% 1000 MG/10 ML VIAL IVP ONE (06:25)
[2021-01-24] MEDS ORDERED: DEXT 5% /NACL 0.9% 1,000 ML IV SCH (06:25)
[2021-01-24] MEDS ORDERED: SODIUM ZIRCONIUM CYCLOSILICATE 10 GM POWD.PACK PO ONE (06:25)
[2021-01-24] MEDS: BLOOD GLUCOSE MONITORING 1 DEV DEV FS SCH ×4 (06:38→20:16)
[2021-01-24] MEDS: ALBUTEROL SULFATE/IPRATROPIU 3 ML SOL IH SCH ×3 (07:12→19:40)
[2021-01-24 08:00] VITALS: BP 158/70
[2021-01-24] MEDS: NACL 0.9% 1,000 ML IV SCH (08:00)
[2021-01-24] MEDS ORDERED: LORATADINE PO SCH (09:00)
[2021-01-24] MEDS ORDERED: lisinopriL 20 MG TAB PO SCH (09:00)
[2021-01-24] MEDS ORDERED: LEVOTHYROXINE SODIUM 0.125 MCG PO SCH (09:00)
[2021-01-24] MEDS ORDERED: NON-FORMULARY ITEM (Omeprazole* (Prilosec*) 1 CAP) PO SCH (09:00)
[2021-01-24] MEDS ORDERED: FUROSEMIDE 20 MG TAB PO SCH (09:00)
[2021-01-24] MEDS: VENLAFAXINE XR 75 MG CAPER PO SCH (10:02)
[2021-01-24] MEDS: APIXABAN 2.5 MG TAB PO SCH ×2 (10:02→20:18)
[2021-01-24] MEDS: LORATADINE 10 MG TAB PO SCH (10:04)
[2021-01-24] MEDS: PANTOPRAZOLE 40 MG TABEC PO SCH (10:04)
[2021-01-24] MEDS: LEVOTHYROXINE 0.1 MG TAB PO SCH (10:04)
[2021-01-24] MEDS: LEVOTHYROXINE 0.025 MG TAB PO SCH (10:06)
[2021-01-24] MEDS: carvediloL 12.5 MG TAB PO SCH ×2 (10:07→20:16)
[2021-01-24] MEDS: glipiZIDE 5 MG TAB PO SCH ×2 (10:07→20:16)
[2021-01-24] MEDS: ATORVASTATIN 20 MG TAB PO SCH (10:08)
[2021-01-24] MEDS ORDERED: SODIUM POLYSTYRENE 15 GM/60 ML UDBTL PO SCH (11:00)
[2021-01-24 11:33] LABS: CARBON DIOXIDE 29.1 mmol/L (21-32); CHLORIDE 101 mmol/L (98-107); CREATININE 2.4 mg/dL (0.6-1.3); GLUCOSE 389 mg/dL (74-106); POTASSIUM 5.1 mmol/L (3.5-5.1); SODIUM SERUM 136 mmol/L (136-145); UREA NITROGEN, BLOOD 37 mg/dL (7-18)
[2021-01-24 12:00] VITALS: BP 127/66
[2021-01-24] MEDS ORDERED: POLYETHYLENE GLYCOL 17 GM/PKT PO SCH (12:15)
[2021-01-24 16:00] VITALS: BP 150/63
[2021-01-24] MEDS: FUROSEMIDE 40 MG/4 ML VIAL IVP SCH (16:02)
[2021-01-24 20:00] VITALS: BP 148/68
[2021-01-25] VITALS: BP 133/67
[2021-01-25] MEDS: NACL 0.9% 1,000 ML IV SCH ×2 (03:51→23:20)
[2021-01-25 04:00] VITALS: BP 142/60
[2021-01-25] MEDS: methylPREDNISolone SS 40 MG/ML VIAL IVP SCH ×3 (04:43→20:53)
[2021-01-25 05:22] LABS: BASOPHILS % (AUTO) 0.1 % (0.0-2.0); HEMATOCRIT 36.7 % (36-48); HEMOGLOBIN 11.7 g/dL (12.0-16.0); LYMPHOCYTES # (AUTO) 0.7 K/uL (2.5-16.5); LYMPHOCYTES % (AUTO) 4.7 % (20.5-51.1); MEAN CORPUSCULAR HEMOGLOBIN 30 pg (27-31); MEAN CORPUSCULAR HGB CONC 32 g/dL (33-37); MEAN CORPUSCULAR VOLUME 94.3 fL (80-94); MONOCYTES # (AUTO) 0.3 K/uL (0.8-1.0); MONOCYTES % (AUTO) 1.9 % (1.7-9.3); NEUTROPHILS % (AUTO) 93.3 % (42.2-75.2); PLATELET COUNT (AUTO) 228 K/uL (140-450)
[2021-01-25] MEDS: PIPERACILLIN/TAZOBACTAM 2.25 GM in DEXTROSE 5% 50 ML IV SCH ×3 (05:33→17:45)
[2021-01-25 05:45] LABS: ANION GAP 13.9 (8-16); CHLORIDE 100 mmol/L (98-107); CREATININE 2.7 mg/dL (0.6-1.3); GLUCOSE 260 mg/dL (74-106); POTASSIUM 4.9 mmol/L (3.5-5.1); SODIUM SERUM 137 mmol/L (136-145); UREA NITROGEN, BLOOD 49 mg/dL (7-18)
[2021-01-25] MEDS: INSULIN LISPRO SLIDING SCALE 100 UNITS/ML VIAL SUBQ PRN ×4 (05:50→20:52)
[2021-01-25] MEDS: BLOOD GLUCOSE MONITORING 1 DEV DEV FS SCH ×4 (06:31→20:51)
[2021-01-25] MEDS: ALBUTEROL SULFATE/IPRATROPIU 3 ML SOL IH SCH ×4 (06:31→19:59)
[2021-01-25 08:00] VITALS: BP 159/69
[2021-01-25] MEDS ORDERED: LOSARTAN 50 MG TAB PO SCH (09:00)
[2021-01-25] MEDS: POLYETHYLENE GLYCOL 17 GM/PKT PO SCH (09:00)
[2021-01-25] MEDS: LEVOTHYROXINE 0.1 MG TAB PO SCH (10:16)
[2021-01-25] MEDS: LEVOTHYROXINE 0.025 MG TAB PO SCH (10:16)
[2021-01-25] MEDS: LORATADINE 10 MG TAB PO SCH (10:17)
[2021-01-25] MEDS: ATORVASTATIN 20 MG TAB PO SCH (10:17)
[2021-01-25] MEDS: FUROSEMIDE 40 MG/4 ML VIAL IVP SCH ×2 (10:17→16:45)
[2021-01-25] MEDS: PANTOPRAZOLE 40 MG TABEC PO SCH (10:17)
[2021-01-25] MEDS: VENLAFAXINE XR 75 MG CAPER PO SCH (10:17)
[2021-01-25] MEDS: glipiZIDE 5 MG TAB PO SCH ×2 (10:18→20:50)
[2021-01-25] MEDS: APIXABAN 2.5 MG TAB PO SCH ×2 (10:21→20:51)
[2021-01-25] MEDS: carvediloL 12.5 MG TAB PO SCH ×2 (10:22→20:50)
[2021-01-25 12:00] VITALS: BP 153/83
[2021-01-25 16:00] VITALS: BP 159/70
[2021-01-25] MEDS: ALBUTEROL SULFATE/IPRATROPIU 3 ML SOL IH PRN (19:57)
[2021-01-25 20:00] VITALS: BP 186/84
[2021-01-26] VITALS: BP 159/69
[2021-01-26] MEDS: PIPERACILLIN/TAZOBACTAM 2.25 GM in DEXTROSE 5% 50 ML IV SCH ×3 (00:06→11:37)
[2021-01-26 04:00] VITALS: BP 151/66
[2021-01-26] MEDS: methylPREDNISolone SS 40 MG/ML VIAL IVP SCH ×3 (05:43→21:53)
[2021-01-26] MEDS: LEVOTHYROXINE 0.075 MG TAB PO SCH (05:44)
[2021-01-26] MEDS: BLOOD GLUCOSE MONITORING 1 DEV DEV FS SCH ×4 (06:32→21:55)
[2021-01-26] MEDS: INSULIN LISPRO SLIDING SCALE 100 UNITS/ML VIAL SUBQ PRN ×4 (06:33→21:56)
[2021-01-26 08:00] VITALS: BP 130/75
[2021-01-26] MEDS: ALBUTEROL SULFATE/IPRATROPIU 3 ML SOL IH PRN (08:03)
[2021-01-26] MEDS: LORATADINE 10 MG TAB PO SCH (08:58)
[2021-01-26] MEDS: ATORVASTATIN 20 MG TAB PO SCH (08:59)
[2021-01-26] MEDS: VENLAFAXINE XR 75 MG CAPER PO SCH (08:59)
[2021-01-26] MEDS: POLYETHYLENE GLYCOL 17 GM/PKT PO SCH (09:00)
[2021-01-26] MEDS: APIXABAN 2.5 MG TAB PO SCH ×2 (09:03→21:54)
[2021-01-26] MEDS: FUROSEMIDE 40 MG/4 ML VIAL IVP SCH ×2 (09:04→16:38)
[2021-01-26] MEDS: carvediloL 12.5 MG TAB PO SCH ×2 (09:05→21:54)
[2021-01-26] MEDS: glipiZIDE 5 MG TAB PO SCH ×2 (09:11→21:54)
[2021-01-26] MEDS: PANTOPRAZOLE 40 MG TABEC PO SCH (09:12)
[2021-01-26 11:04] LABS: BASOPHILS % (AUTO) 0.3 % (0.0-2.0); HEMATOCRIT 37.5 % (36-48); HEMOGLOBIN 12.2 g/dL (12.0-16.0); LYMPHOCYTES # (AUTO) 0.3 K/uL (2.5-16.5); MEAN CORPUSCULAR HEMOGLOBIN 31 pg (27-31); MEAN CORPUSCULAR HGB CONC 33 g/dL (33-37); MEAN CORPUSCULAR VOLUME 94.1 fL (80-94); MONOCYTES # (AUTO) 0.2 K/uL (0.8-1.0); MONOCYTES % (AUTO) 1.9 % (1.7-9.3); NEUTROPHILS # (AUTO) 8.6 K/uL (1.8-7.7); PLATELET COUNT (AUTO) 203 K/uL (140-450); RED BLOOD CELL COUNT(AUTO) 3.98 MIL/uL (4.20-5.40); RED CELL DISTRIBUTION WIDTH 14.1 % (11.6-13.7); WHITE BLOOD COUNT (AUTO) 9.1 K/uL (4.8-10.8)
[2021-01-26 11:15] LABS: CARBON DIOXIDE 30.3 mmol/L (21-32); CHLORIDE 99 mmol/L (98-107); POTASSIUM 4.3 mmol/L (3.5-5.1); SODIUM SERUM 136 mmol/L (136-145)
[2021-01-26 11:28] LABS: GLUCOSE 442 mg/dL (74-106)
[2021-01-26 11:29] LABS: UREA NITROGEN, BLOOD 64 mg/dL (7-18)
[2021-01-26 11:42] LABS: LYMPHOCYTES % (AUTO) 3.5 % (20.5-51.1); NEUTROPHILS % (AUTO) 94.3 % (42.2-75.2)
[2021-01-26 12:00] VITALS: BP 152/71
[2021-01-26] MEDS ORDERED: amLODIPine 5 MG TAB PO SCH ×2 (12:25→18:05)
[2021-01-26] MEDS: ALBUTEROL SULFATE/IPRATROPIU 3 ML SOL IH SCH ×2 (13:50→19:54)
[2021-01-26 16:00] VITALS: BP 184/87
[2021-01-26] MEDS: hydrALAZINE 20 MG/ML VIAL IVP PRN (16:44)
[2021-01-26] MEDS ORDERED: MORPHINE SULFATE 2 MG/ML SYR IVP PRN (18:05)
[2021-01-26] MEDS: amLODIPine 5 MG TAB PO SCH (18:23)
[2021-01-26] MEDS: LABETALOL 100 MG/20 ML VIAL IV PRN ×2 (18:33→20:51)
[2021-01-26 20:00] VITALS: BP 192/96
[2021-01-26] MEDS ORDERED: LORazepam 2 MG/ML VIAL IM/IVP PRN (20:45)
[2021-01-26] MEDS ORDERED: LORazepam 2 MG/ML VIAL ONE (20:50)
[2021-01-26] MEDS: NACL 0.9% 1,000 ML IV SCH (21:30)
[2021-01-27] VITALS: BP 144/75
[2021-01-27 04:00] VITALS: BP 165/83
[2021-01-27] MEDS: LEVOTHYROXINE 0.075 MG TAB PO SCH (05:41)
[2021-01-27] MEDS: methylPREDNISolone SS 40 MG/ML VIAL IVP SCH (05:41)
[2021-01-27] MEDS: hydrALAZINE 20 MG/ML VIAL IVP PRN (05:42)
[2021-01-27 06:19] LABS: BASOPHILS % (AUTO) 0.2 % (0.0-2.0); HEMATOCRIT 38.1 % (36-48); HEMOGLOBIN 12.6 g/dL (12.0-16.0); LYMPHOCYTES # (AUTO) 0.8 K/uL (2.5-16.5); LYMPHOCYTES % (AUTO) 9.4 % (20.5-51.1); MEAN CORPUSCULAR HEMOGLOBIN 31 pg (27-31); MEAN CORPUSCULAR HGB CONC 33 g/dL (33-37); MEAN CORPUSCULAR VOLUME 93.1 fL (80-94); MONOCYTES # (AUTO) 0.5 K/uL (0.8-1.0); MONOCYTES % (AUTO) 6.5 % (1.7-9.3); NEUTROPHILS # (AUTO) 6.8 K/uL (1.8-7.7); NEUTROPHILS % (AUTO) 83.9 % (42.2-75.2); PLATELET COUNT (AUTO) 262 K/uL (140-450); RED BLOOD CELL COUNT(AUTO) 4.09 MIL/uL (4.20-5.40); RED CELL DISTRIBUTION WIDTH 14.1 % (11.6-13.7); WHITE BLOOD COUNT (AUTO) 8.1 K/uL (4.8-10.8)
[2021-01-27 06:33] LABS: ANION GAP 8.8 (8-16); CARBON DIOXIDE 33.1 mmol/L (21-32); CHLORIDE 100 mmol/L (98-107); CREATININE 2.8 mg/dL (0.6-1.3); GLUCOSE 218 mg/dL (74-106); POTASSIUM 3.9 mmol/L (3.5-5.1); SODIUM SERUM 138 mmol/L (136-145)
[2021-01-27 06:34] LABS: UREA NITROGEN, BLOOD 65 mg/dL (7-18)
[2021-01-27] MEDS: INSULIN LISPRO SLIDING SCALE 100 UNITS/ML VIAL SUBQ PRN ×3 (06:37→20:35)
[2021-01-27] MEDS: BLOOD GLUCOSE MONITORING 1 DEV DEV FS SCH ×4 (06:37→20:23)
[2021-01-27] MEDS: ALBUTEROL SULFATE/IPRATROPIU 3 ML SOL IH SCH ×3 (07:15→19:16)
[2021-01-27 08:00] VITALS: BP 205/87
[2021-01-27] MEDS: POLYETHYLENE GLYCOL 17 GM/PKT PO SCH (09:00)
[2021-01-27] MEDS: carvediloL 12.5 MG TAB PO SCH ×2 (09:03→20:27)
[2021-01-27] MEDS: VENLAFAXINE XR 75 MG CAPER PO SCH (09:03)
[2021-01-27] MEDS: LORATADINE 10 MG TAB PO SCH (09:04)
[2021-01-27] MEDS: glipiZIDE 5 MG TAB PO SCH ×2 (09:04→20:25)
[2021-01-27] MEDS: ATORVASTATIN 20 MG TAB PO SCH (09:04)
[2021-01-27] MEDS: PANTOPRAZOLE 40 MG TABEC PO SCH (09:05)
[2021-01-27] MEDS: amLODIPine 5 MG TAB PO SCH ×2 (09:05→20:26)
[2021-01-27] MEDS: hydrALAZINE 25 MG TAB PO SCH ×3 (09:06→18:07)
[2021-01-27] MEDS: APIXABAN 2.5 MG TAB PO SCH ×2 (09:06→20:32)
[2021-01-27] MEDS: FUROSEMIDE 40 MG/4 ML VIAL IVP SCH ×2 (09:06→14:20)
[2021-01-27 10:50] VITALS: BP 157/81
[2021-01-27] MEDS ORDERED: INSULIN LISPRO 100 UNITS/ML VIAL SUBQ SCH (12:30)
[2021-01-27] MEDS: NACL 0.9% 1,000 ML IV SCH (15:20)
[2021-01-27 16:00] VITALS: BP 132/83
[2021-01-27] MEDS ORDERED: LORazepam 2 MG/ML VIAL IM/IVP PRN (18:50)
[2021-01-27 20:00] VITALS: BP 152/88
[2021-01-27] MEDS: predniSONE 10 MG TAB PO SCH (20:33)
[2021-01-28] VITALS: BP 118/74
[2021-01-28 04:00] VITALS: BP 140/75
[2021-01-28] MEDS: LEVOTHYROXINE 0.075 MG TAB PO SCH (05:46)
[2021-01-28] MEDS: INSULIN LISPRO SLIDING SCALE 100 UNITS/ML VIAL SUBQ PRN ×2 (05:54→11:34)
[2021-01-28] MEDS: BLOOD GLUCOSE MONITORING 1 DEV DEV FS SCH ×2 (05:55→11:31)
[2021-01-28 06:04] LABS: BASOPHILS % (AUTO) 0.3 % (0.0-2.0); EOSINOPHILS % (AUTO) 0.1 % (0.0-4.0); HEMATOCRIT 39.7 % (36-48); LYMPHOCYTES # (AUTO) 0.6 K/uL (2.5-16.5); LYMPHOCYTES % (AUTO) 8.1 % (20.5-51.1); MEAN CORPUSCULAR HEMOGLOBIN 30 pg (27-31); MEAN CORPUSCULAR HGB CONC 33 g/dL (33-37); MEAN CORPUSCULAR VOLUME 91.8 fL (80-94); MONOCYTES # (AUTO) 0.5 K/uL (0.8-1.0); MONOCYTES % (AUTO) 7.2 % (1.7-9.3); NEUTROPHILS # (AUTO) 6.3 K/uL (1.8-7.7); NEUTROPHILS % (AUTO) 84.3 % (42.2-75.2); PLATELET COUNT (AUTO) 212 K/uL (140-450); RED BLOOD CELL COUNT(AUTO) 4.32 MIL/uL (4.20-5.40); WHITE BLOOD COUNT (AUTO) 7.4 K/uL (4.8-10.8)
[2021-01-28 06:07] LABS: ANION GAP 14.6 (8-16); CARBON DIOXIDE 30.6 mmol/L (21-32); CHLORIDE 103 mmol/L (98-107); CREATININE 2.1 mg/dL (0.6-1.3); GLUCOSE 153 mg/dL (74-106); POTASSIUM 4.2 mmol/L (3.5-5.1); SODIUM SERUM 144 mmol/L (136-145); UREA NITROGEN, BLOOD 60 mg/dL (7-18)
[2021-01-28] MEDS: ALBUTEROL SULFATE/IPRATROPIU 3 ML SOL IH SCH ×2 (07:15→14:07)
[2021-01-28 08:00] VITALS: BP 162/74
[2021-01-28] MEDS: POLYETHYLENE GLYCOL 17 GM/PKT PO SCH (09:00)
[2021-01-28] MEDS: FUROSEMIDE 40 MG/4 ML VIAL IVP SCH (09:19)
[2021-01-28] MEDS: carvediloL 12.5 MG TAB PO SCH (09:19)
[2021-01-28] MEDS: VENLAFAXINE XR 75 MG CAPER PO SCH (09:20)
[2021-01-28] MEDS: amLODIPine 5 MG TAB PO SCH (09:20)
[2021-01-28] MEDS: glipiZIDE 5 MG TAB PO SCH (09:21)
[2021-01-28] MEDS: hydrALAZINE 25 MG TAB PO SCH ×2 (09:21→13:51)
[2021-01-28] MEDS: LORATADINE 10 MG TAB PO SCH (09:21)
[2021-01-28] MEDS: ATORVASTATIN 20 MG TAB PO SCH (09:21)
[2021-01-28] MEDS: predniSONE 10 MG TAB PO SCH (09:21)
[2021-01-28] MEDS: PANTOPRAZOLE 40 MG TABEC PO SCH (09:22)
[2021-01-28] MEDS: APIXABAN 2.5 MG TAB PO SCH (09:23)
[2021-01-28] MEDS ORDERED: AMLO-3 PO (10:46)
[2021-01-28] MEDS ORDERED: PRED10TA5 PO ×2 (10:46)
[2021-01-28] MEDS ORDERED: LEVO0.1331 PO (10:53)
[2021-01-28] MEDS: NACL 0.9% 1,000 ML IV SCH (11:20)
[2021-01-28 12:00] VITALS: BP 142/66
== END 2021-01-28 15:00 | disposition home health service (06) | DRG 871 ==
LOC: MED 13:30 → MTU 16:16
PROVIDERS: ADMIT Family Medicine; ATTEND Family Medicine
PROC: 5A09357 Assistance with Respiratory Ventilation, Less than 24 Consecutive Hours, Continuous Positive Airway Pressure (ICD-10-PCS; principal; 2021-01-23)
DX: A41.9 Sepsis, unspecified organism (principal); I50.43 Acute on chronic combined systolic (congestive) and diastolic (congestive) heart failure; E43 Unspecified severe protein-calorie malnutrition; G93.41 Metabolic encephalopathy; J69.0 Pneumonitis due to inhalation of food and vomit; J96.21 Acute and chronic respiratory failure with hypoxia; N17.0 Acute kidney failure with tubular necrosis; E66.2 Morbid (severe) obesity with alveolar hypoventilation; I13.0 Hypertensive heart and chronic kidney disease with heart failure and stage 1 through stage 4 chronic kidney disease, or unspecified chronic kidney disease; J44.1 Chronic obstructive pulmonary disease with (acute) exacerbation; J44.0 Chronic obstructive pulmonary disease with (acute) lower respiratory infection; E03.9 Hypothyroidism, unspecified; E11.22 Type 2 diabetes mellitus with diabetic chronic kidney disease; E78.5 Hyperlipidemia, unspecified; E86.0 Dehydration; E87.5 Hyperkalemia; I25.10 Atherosclerotic heart disease of native coronary artery without angina pectoris; N18.32 Chronic kidney disease, stage 3b; Z20.822 Contact with and (suspected) exposure to COVID-19; Z96.659 Presence of unspecified artificial knee joint; E78.00 Pure hypercholesterolemia, unspecified; K21.9 Gastro-esophageal reflux disease without esophagitis; I48.0 Paroxysmal atrial fibrillation; D64.9 Anemia, unspecified; E11.65 Type 2 diabetes mellitus with hyperglycemia; T38.0X5A Adverse effect of glucocorticoids and synthetic analogues, initial encounter; I16.0 Hypertensive urgency; I08.1 Rheumatic disorders of both mitral and tricuspid valves; I27.20 Pulmonary hypertension, unspecified; Z90.49 Acquired absence of other specified parts of digestive tract; Z79.899 Other long term (current) drug therapy; Z79.4 Long term (current) use of insulin; Z68.34 Body mass index [BMI] 34.0-34.9, adult; Y92.89 Other specified places as the place of occurrence of the external cause
CPT/HCPCS: 36415; 36600; 71045; 71111; 74018; 80048; 80053; 80305; 81003; 82150; 82803; 82948; 83036; 83605; 83690; 83735; 83880; 84100; 84436; 84439; 84443; 84479; 84484; 85025; 85610; 85730; 87040; 87081; 93005; 94640; 94660; 96365; 96374; 97110; 97112; 97116; 97163-GP; 97530; 99291; J0360; J0610; J0696; J1815; J1940; J2060; J2270; J2405; J2543; J2920; J2930; J3490; J7060; J7512

== ENCOUNTER 2021-02-11 12:34 | Outpatient (CLI) | payer OTHER, SELFPAY ==
[2021-02-11 12:22] LABS: PLATELET COUNT (AUTO) 259 K/uL (140-450); RED BLOOD CELL COUNT(AUTO) 3.64 MIL/uL (4.20-5.40)
[2021-02-11 12:30] LABS: BASOPHILS # (AUTO) 0.1 K/uL (0.00-0.22); BASOPHILS % (AUTO) 0.9 % (0.0-2.0); EOSINOPHILS # (AUTO) 0.2 K/uL (0-0.4); EOSINOPHILS % (AUTO) 4.2 % (0.0-4.0); HEMATOCRIT 33.6 % (36-48); HEMOGLOBIN 11.1 g/dL (12.0-16.0); LYMPHOCYTES # (AUTO) 1.9 K/uL (2.5-16.5); LYMPHOCYTES % (AUTO) 32.1 % (20.5-51.1); MEAN CORPUSCULAR HEMOGLOBIN 31 pg (27-31); MEAN CORPUSCULAR HGB CONC 33 g/dL (33-37); MEAN CORPUSCULAR VOLUME 92.2 fL (80-94); MONOCYTES # (AUTO) 0.5 K/uL (0.8-1.0); MONOCYTES % (AUTO) 8.6 % (1.7-9.3); NEUTROPHILS # (AUTO) 3.2 K/uL (1.8-7.7); NEUTROPHILS % (AUTO) 54.2 % (42.2-75.2); RED CELL DISTRIBUTION WIDTH 14.6 % (11.6-13.7); WHITE BLOOD COUNT (AUTO) 5.9 K/uL (4.8-10.8)
[~2021-02-11 12:34] MED LIST changes: -ALBU0.0912 INH; +AMLO-3 PO; +CARV25TA PO; -CARV3.12 PO; +ERGO-30 PO; -ERGO500028 PO; -LEVO0.124 PO; +LEVO0.1331 PO; -OMEP40EC14 PO; +PRED10TA5 PO; -PRED20TA5 PO; -PRED20TA6 PO
[2021-02-11 12:54] LABS: ALBUMIN 2.9 g/dL (3.4-5.0); ANION GAP 16.6 (8-16); ASPARTATE AMINOTRANSFERASE 16 U/L (15-37); CARBON DIOXIDE 23.8 mmol/L (21-32); CHLORIDE 106 mmol/L (98-107); CHOL/HDL RATIO 6.7 (1-4.5); CREATININE 3.2 mg/dL (0.6-1.3); GLUCOSE 73 mg/dL (74-106); HDL CHOLESTEROL 38 mg/dL (40-60); LDL (CALC) 184 mg/dL (60-100); POTASSIUM 4.4 mmol/L (3.5-5.1); SODIUM SERUM 142 mmol/L (136-145); TOTAL BILIRUBIN 0.6 mg/dL (0.0-1.0); TRIGLYCERIDES 163 mg/dL (30-150); URIC ACID 12.2 mg/dL (2.6-7.2)
[2021-02-11 13:06] LABS: UREA NITROGEN, BLOOD 94 mg/dL (7-18)
[2021-02-11 13:17] LABS: APPEARANCE,URINE CLEAR (CLEAR); BILIRUBIN,URINE NEGATIVE (NEGATIVE); BLOOD, URINE NEGATIVE (NEGATIVE); COLOR,URINE YELLOW (YELLOW); LEUKOCYTE ESTERASE ,URINE NEGATIVE (NEGATIVE); NITRITE, URINE NEGATIVE (NEGATIVE); PH,URINE 5.5 (5.0-9.0); UGLUCOSE NEGATIVE (NEGATIVE)
[2021-02-11 16:13] LABS: CREATININE,URINE RANDOM 53 mg/dL (30-125); TOTAL PROTEIN URINE 250.2 MG/DL
== END 2021-02-11 21:55 | disposition home or self-care (01) ==
LOC: MLB 12:34
PROVIDERS: ATTEND Internal Medicine Nephrology
DX: E55.9 Vitamin D deficiency, unspecified (principal); N18.30 Chronic kidney disease, stage 3 unspecified; N18.2 Chronic kidney disease, stage 2 (mild); I10 Essential (primary) hypertension; E11.9 Type 2 diabetes mellitus without complications
CPT/HCPCS: 36415; 80053; 81003; 82306; 82570; 83036; 83970; 84156; 84550; 85025

== ENCOUNTER 2021-03-05 14:55 | Outpatient (CLI) | payer OTHER ==
[2021-03-05 15:34] LABS: BASOPHILS % (AUTO) 0.9 % (0.0-2.0); EOSINOPHILS # (AUTO) 0.2 K/uL (0-0.4); EOSINOPHILS % (AUTO) 3.6 % (0.0-4.0); HEMATOCRIT 33.1 % (36-48); HEMOGLOBIN 10.8 g/dL (12.0-16.0); LYMPHOCYTES # (AUTO) 1.4 K/uL (2.5-16.5); LYMPHOCYTES % (AUTO) 32.6 % (20.5-51.1); MEAN CORPUSCULAR HEMOGLOBIN 30 pg (27-31); MEAN CORPUSCULAR HGB CONC 33 g/dL (33-37); MEAN CORPUSCULAR VOLUME 92.7 fL (80-94); MONOCYTES # (AUTO) 0.5 K/uL (0.8-1.0); MONOCYTES % (AUTO) 11.6 % (1.7-9.3); NEUTROPHILS # (AUTO) 2.2 K/uL (1.8-7.7); NEUTROPHILS % (AUTO) 51.3 % (42.2-75.2); PLATELET COUNT (AUTO) 299 K/uL (140-450); RED BLOOD CELL COUNT(AUTO) 3.57 MIL/uL (4.20-5.40); WHITE BLOOD COUNT (AUTO) 4.3 K/uL (4.8-10.8)
[2021-03-05 16:02] LABS: ALBUMIN 3.5 g/dL (3.4-5.0); ANION GAP 11.7 (8-16); ASPARTATE AMINOTRANSFERASE 20 U/L (15-37); CARBON DIOXIDE 27.3 mmol/L (21-32); CHLORIDE 106 mmol/L (98-107); CREATININE 2.4 mg/dL (0.6-1.3); GLUCOSE 93 mg/dL (74-106); SODIUM SERUM 141 mmol/L (136-145); TOTAL BILIRUBIN 0.6 mg/dL (0.0-1.0)
[2021-03-05 16:10] LABS: APPEARANCE,URINE CLEAR (CLEAR); BILIRUBIN,URINE NEGATIVE (NEGATIVE); BLOOD, URINE NEGATIVE (NEGATIVE); COLOR,URINE YELLOW (YELLOW); LEUKOCYTE ESTERASE ,URINE NEGATIVE (NEGATIVE); NITRITE, URINE NEGATIVE (NEGATIVE); UGLUCOSE NEGATIVE (NEGATIVE)
[2021-03-05 17:59] LABS: UREA NITROGEN, BLOOD 79 mg/dL (7-18)
== END 2021-03-05 21:16 | disposition home or self-care (01) ==
LOC: MLB 14:55
PROVIDERS: ATTEND Internal Medicine Nephrology
DX: I12.9 Hypertensive chronic kidney disease with stage 1 through stage 4 chronic kidney disease, or unspecified chronic kidney disease (principal); E11.22 Type 2 diabetes mellitus with diabetic chronic kidney disease; N18.30 Chronic kidney disease, stage 3 unspecified; M19.90 Unspecified osteoarthritis, unspecified site
CPT/HCPCS: 36415; 80053; 81003; 82570; 85025

== ENCOUNTER 2021-08-15 14:35 | Emergency (ER) | payer OTHER ==
[~2021-08-15] VITALS: Ht 160 cm; Wt 78.5 kg
[2021-08-15 14:49] VITALS: BP 113/61
[2021-08-15] MEDS ORDERED: IBUP-2213 PO (15:32)
[2021-08-15] MEDS ORDERED: COROTSOL LEFT EAR (15:32)
--- NOTE | 2021-08-15 15:45 | NUR ---
Patient discharged with v/s stable. Written and verbal after care instructions given and explained. Patient alert, oriented and verbalized understanding of instructions. Ambulatory with steady gait. All questions addressed prior to discharge. ID band removed. Patient advised to follow up with PMD. Rx of Cortisporin Otic solution given. Patient educated on indication of medication including possible reaction and side effects. Opportunity to ask questions provided and answered.
== END 2021-08-15 15:45 | disposition home or self-care (01) ==
LOC: MED 14:35
DX: H60.92 Unspecified otitis externa, left ear (principal); J45.909 Unspecified asthma, uncomplicated; I11.0 Hypertensive heart disease with heart failure; I50.9 Heart failure, unspecified; E07.9 Disorder of thyroid, unspecified; Z90.49 Acquired absence of other specified parts of digestive tract; Z98.890 Other specified postprocedural states; Z79.899 Other long term (current) drug therapy
CPT/HCPCS: 99282